=== PATIENT | male | born 1990 | race Caucasian/White ===

== ENCOUNTER 2018-01-06 09:33 | Emergency (ER) | payer MEDICAID ==
[~2018-01-06] VITALS: Ht 170.2 cm; Wt 68.0 kg
[~2018-01-06 09:33] MED LIST: AZIT250T PO; BACL20TA84 PO; HAL5T PO; LITH300C43 PO; LURA60TA PO; QUET-1 PO; QUET25TA PO
[2018-01-06 09:50] VITALS: BP 125/77
[2018-01-06] MEDS ORDERED: ondansetron 4mg rapidly disintigrating tab PO ONE (11:00)
[2018-01-06] MEDS ORDERED: DOXYCYCLINE 100MG CAPSULE PO STA (11:00)
[2018-01-06] MEDS ORDERED: cephalexin 250mg capsule PO ONE (11:00)
[2018-01-06] MEDS ORDERED: normal saline 1000ML IV soln IV ONE (11:00)
[2018-01-06 11:33] LABS: BASOPHILS % (AUTO) 0.2 % (0-1); EOSINOPHILS # (AUTO) 0.1 X10'3 (0-0.9); EOSINOPHILS % (AUTO) 1.1 % (0-6); HEMATOCRIT 43.1 % (42.0-52.0); HEMOGLOBIN 14.6 g/dl (14.0-17.9); LYMPHOCYTES # (AUTO) 0.9 X10'3 (1.1-4.8); MEAN CORPUSCULAR HEMOGLOBIN 30.7 PG (27.0-31.0); MEAN CORPUSCULAR HGB CONC 33.8 % (33.0-36.5); MEAN CORPUSCULAR VOLUME 90.6 FL (78-98); MEAN PLATELET VOLUME 8.2 FL (7.4-10.4); MONOCYTES # (AUTO) 1.1 X10'3 (0-0.9); MONOCYTES % (AUTO) 8.6 % (2-12); NEUTROPHILS # (AUTO) 10.7 X10'3 (1.8-7.7); NEUTROPHILS % (AUTO) 83.1 % (42-75); PLATELET COUNT 268 X10'3 (140-440); RED BLOOD COUNT 4.76 X10'6 (4.70-6.10); RED CELL DISTRIBUTION WIDTH 12.6 % (11.5-14.5); WHITE BLOOD COUNT 12.9 X10'3 (4.5-11.0)
[2018-01-06 11:51] LABS: ALANINE AMINOTRANSFERASE 53 U/L (12-78); ALBUMIN 3.2 G/DL (3.4-5.0); ALBUMIN/GLOBULIN RATIO 0.7 (1.1-1.5); ALKALINE PHOSPHATASE 156 IU/L (46-116); ANION GAP 11 (8-16); ASPARTATE AMINO TRANSFERASE 49 U/L (10-37); BILIRUBIN,TOTAL 0.8 MG/DL (0.1-1.0); BLOOD UREA NITROGEN 18 MG/DL (7-18); BUN/CREATININE RATIO 22.8 (5.4-32.0); CALCIUM 9.9 MG/DL (8.5-10.1); CHLORIDE 92 MMOL/L (99-107); CREATININE 0.79 MG/DL (0.60-1.10); GLUCOSE 100 MG/DL (70-104); MAGNESIUM 2.5 MG/DL (1.5-2.4); POTASSIUM 3.3 MMOL/L (3.5-5.1); SODIUM 131 MMOL/L (135-145); TOTAL CARBON DIOXIDE 28.3 MMOL/L (24-32); eGFR > 90 ML/MIN
[2018-01-06 11:53] LABS: PARTIAL THROMBOPLASTIN TIME 37 SECONDS (22-32); PROTHROMBIN TIME 10.3 SECONDS (9.0-12.0)
[2018-01-06 11:59] LABS: PLATELET ESTIMATE NORMAL; TOTAL CELLS COUNTED 100
[2018-01-06] MEDS ORDERED: TETanus/Pertussis (Acell)/Diphther VAC/PF (Tdap-Adult) 0.5ml syringe IM ONE (12:25)
[2018-01-06] MEDS ORDERED: CEPH250T PO (13:07)
[2018-01-06] MEDS ORDERED: DOXY100C43 PO (13:07)
== END 2018-01-06 14:00 | disposition home or self-care (01) ==
LOC: ER 09:34
DX: L02.416 Cutaneous abscess of left lower limb (principal); L03.116 Cellulitis of left lower limb; J45.909 Unspecified asthma, uncomplicated; F12.90 Cannabis use, unspecified, uncomplicated; F15.90 Other stimulant use, unspecified, uncomplicated; Z86.69 Personal history of other diseases of the nervous system and sense organs; Z98.890 Other specified postprocedural states; Z88.0 Allergy status to penicillin; Z88.1 Allergy status to other antibiotic agents; Z91.048 Other nonmedicinal substance allergy status; Z79.2 Long term (current) use of antibiotics; Z79.899 Other long term (current) drug therapy
CPT/HCPCS: 10061; 36415; 71045; 80053; 83605; 83735; 84145; 85025; 85610; 85730; 87040; 90471; 90715; 93005; 99284; J7030

== ENCOUNTER 2018-03-12 09:12 | Inpatient (IN) | payer MEDICAID | END 2018-03-17 14:52 | LOC: ER 09:12 → ED HOLD 09:46 → SUR 3N 03-16 19:21 → ICU 2S 11:14 ==

== ENCOUNTER 2019-08-13 00:49 | Emergency (ER) | payer MEDICAID, OTHER ==
[~2019-08-13] VITALS: Ht 170.2 cm; Wt 62.0 kg
[~2019-08-13 00:49] MED LIST changes: -AZIT250T PO; -BACL20TA84 PO; +DIAZ5TAB PO; +DIVA500T4 PO; -HAL5T PO; -LITH300C43 PO; -LURA60TA PO; -QUET-1 PO; +QUET200T PO; -QUET25TA PO; +QUET300T2 PO
[2019-08-13 02:08] LABS: BASOPHILS # (AUTO) 0.1 X10'3 (0-0.2); BASOPHILS % (AUTO) 0.9 % (0-1); EOSINOPHILS # (AUTO) 0.2 X10'3 (0-0.9); EOSINOPHILS % (AUTO) 2.4 % (0-6); HEMATOCRIT 44.6 % (42.0-52.0); HEMOGLOBIN 15.2 g/dl (14.0-17.9); LYMPHOCYTES # (AUTO) 1.9 X10'3 (1.1-4.8); LYMPHOCYTES % (AUTO) 27.7 % (21-51); MEAN CORPUSCULAR HEMOGLOBIN 30.6 PG (27.0-31.0); MEAN CORPUSCULAR HGB CONC 34.1 g/dL (33.0-36.5); MEAN CORPUSCULAR VOLUME 89.5 FL (78-98); MEAN PLATELET VOLUME 8.8 FL (7.4-10.4); MONOCYTES # (AUTO) 0.5 X10'3 (0-0.9); MONOCYTES % (AUTO) 7.7 % (2-12); NEUTROPHILS # (AUTO) 4.2 X10'3 (1.8-7.7); NEUTROPHILS % (AUTO) 61.3 % (42-75); PLATELET COUNT 218 X10'3 (140-440); RED BLOOD COUNT 4.98 X10'6 (4.70-6.10); RED CELL DISTRIBUTION WIDTH 13.1 % (11.5-14.5); WHITE BLOOD COUNT 6.9 X10'3 (4.5-11.0)
[2019-08-13 02:20] LABS: ALANINE AMINOTRANSFERASE 22 U/L (12-78); ALBUMIN 4.1 G/DL (3.4-5.0); ALBUMIN/GLOBULIN RATIO 1.4 (1.1-1.5); ALKALINE PHOSPHATASE 77 IU/L (46-116); ANION GAP 10 (8-16); ASPARTATE AMINO TRANSFERASE 19 U/L (10-37); BILIRUBIN,TOTAL 0.8 MG/DL (0.1-1.0); BLOOD UREA NITROGEN 22 MG/DL (7-18); BUN/CREATININE RATIO 22.7 (5.4-32.0); CALCIUM 8.8 MG/DL (8.5-10.1); CHLORIDE 109 MMOL/L (99-107); CREATININE 0.97 MG/DL (0.60-1.10); GLUCOSE 91 MG/DL (70-104); POTASSIUM 3.7 MMOL/L (3.5-5.1); SODIUM 144 MMOL/L (135-145); TOTAL CARBON DIOXIDE 25.2 MMOL/L (24-32); TOTAL PROTEIN 7.1 G/DL (6.4-8.2); eGFR > 90 ML/MIN
[2019-08-13 02:22] LABS: ETHANOL < 0.010 GM/DL (0.0-0.010)
--- NOTE | 2019-08-13 08:00 | NUR ---
Pt sleepin on R side. RR equal and nonlabored.
--- NOTE | 2019-08-13 09:00 | NUR ---
Pt sleepin on L side. RR equal and nonlabored.
--- NOTE | 2019-08-13 10:10 | NUR ---
Pt ambulated to bathroom with steady gait. UA obtained.
[2019-08-13 10:24] LABS: URINE AMPHETAMINE SCREEN NEGATIVE (Neg); URINE BARBITUATE SCREEN NEGATIVE (Neg); URINE BENZODIAZEPINES SCREEN NEGATIVE (Neg); URINE CANNABINOID SCREEN POSITIVE (Neg); URINE COCAINE SCREEN NEGATIVE (Neg); URINE METHADONE SCREEN NEGATIVE (Neg); URINE OPIATE SCREEN NEGATIVE (Neg); URINE PHENCYCLIDINE SCREEN NEGATIVE (Neg)
--- NOTE | 2019-08-13 13:40 | NUR ---
PT RESTING IN BED. NO S/S OF DISTRESS OR PAIN. WILL CONTINUE TO MONITOR. RR OF 16
--- NOTE | 2019-08-13 14:42 | NUR ---
PACKET FAXED TO [facility]
[2019-08-13 14:57] LABS: CLARITY,URINE SLIGHTLY CLOUDY (Clear); COLOR,URINE YELLOW (Yellow); GLUCOSE, URINE NEGATIVE (Neg); KETONES,URINE NEGATIVE (Neg); LEUKOCYTE ESTERASE ,URINE NEGATIVE (Neg); NITRITES, URINE NEGATIVE (Neg); OCCULT BLOOD,URINE NEGATIVE (Neg); PROTEIN,URINE TRACE mg/dl (Neg)
[2019-08-13 14:59] LABS: UA COLLECTION TYPE VOIDED
[2019-08-13 15:03] LABS: AMORPHOUS URATES 1+; BACTERIA,URINE NONE SEEN /HPF (Neg); MUCUS STRANDS MANY /LPF (Neg); RBC,URINE NONE SEEN /HPF (0-2); SPERM FEW /HPF (NEGATIVE); SQUAMOUS EPITHELIAL CELL,UR NONE SEEN /LPF (FEW); WBC,URINE 0-4 /HPF (0-4)
--- NOTE | 2019-08-13 18:15 | NUR ---
TC FROM [facility], STAFF FROM [facility] FOR INTAKE INFORMATION. THEY WILL CALL BACK IF PATIENT IS ACCEPTED TO THEIR PROGRAM.
[2019-08-13] MEDS ORDERED: VAL5T PO (18:45)
[2019-08-13] MEDS ORDERED: DIVA500T9 PO ×2 (18:46→18:47)
[2019-08-13] MEDS ORDERED: QUET-1 PO (18:47)
[2019-08-13] MEDS ORDERED: QUET200T PO (18:50)
--- NOTE | 2019-08-13 19:00 | NUR ---
Pt eating dinner
--- NOTE | 2019-08-13 20:00 | NUR ---
Pt sitting in bed quietly.
[2019-08-13] MEDS: diazepam 5mg tablet PO PRN (20:17)
[2019-08-13] MEDS ORDERED: quetiapine 100mg tablet PO SCH (21:00)
[2019-08-13] MEDS ORDERED: divalproex sod 250mg ER (24-hour) tablet PO SCH (21:00)
[2019-08-13] MEDS ORDERED: traZODone 50mg tablet PO SCH (21:00)
--- NOTE | 2019-08-13 21:00 | NUR ---
Pt resting quietly, respirations normal, no s/s of distress.
--- NOTE | 2019-08-13 22:00 | NUR ---
Pt resting quietly, respirations normal, no s/s of distress.
--- NOTE | 2019-08-13 23:00 | NUR ---
Pt resting quietly, respirations normal, no s/s of distress.
--- NOTE | 2019-08-13 23:45 | NUR ---
Pt resting quietly, respirations normal, no s/s of distress.
--- NOTE | 2019-08-14 01:00 | NUR ---
Pt resting quietly, respirations normal, no s/s of distress.
--- NOTE | 2019-08-14 02:00 | NUR ---
Pt resting quietly, respirations normal, no s/s of distress.
--- NOTE | 2019-08-14 03:00 | NUR ---
Pt up to bathroom.
--- NOTE | 2019-08-14 04:07 | NUR ---
Pt resting quietly, respirations normal, no s/s of distress.
--- NOTE | 2019-08-14 06:32 | NUR ---
Patient sleeping on right side. No distress observed. Continue to monitor.
[2019-08-14] MEDS ORDERED: quetiapine 100mg tablet PO SCH (08:00)
[2019-08-14] MEDS ORDERED: divalproex sod 250mg ER (24-hour) tablet PO SCH (08:00)
[2019-08-14] MEDS ORDERED: QUETIAPINE FUMARATE 200 MG PO SCH (08:00)
[2019-08-14] MEDS: diazepam 5mg tablet PO PRN ×2 (08:44→18:00)
--- NOTE | 2019-08-14 09:11 | NUR ---
Patient sleeping at this time. RN 1:1 earlier. Patient states he is still feeling suicidal with a plan to overdose or cut his wrists. Patient going to [facility] today. Patient states he is homeless but has been trying to contact [employer] to get back his benefits to help him with housing. No avail at the present time due to Covid. Continue to monitor.
--- NOTE | 2019-08-14 09:19 | NUR ---
ASSUMED CARE WHILE RN IS ON 15 MIN BREAK PT. HAS NO NEEDS AT THIS TIME
--- NOTE | 2019-08-14 10:31 | NUR ---
Patient sleeping on right side. No distress observed. Continue to monitor.
--- NOTE | 2019-08-14 12:05 | NUR ---
Patient reclining in bed with his eyes closed. No distress observed. Continue to monitor.
--- NOTE | 2019-08-14 13:16 | NUR ---
Patient sitting up and eating. No distress observed. Continue to monitor.
--- NOTE | 2019-08-14 14:50 | NUR ---
Patient reclining. No distress observed. Continue to monitor.
--- NOTE | 2019-08-14 16:52 | NUR ---
Patient speaking loudly on the phone to a female. Staff had to keep reminding him to keep his voice down. Patient got off the phone. No distress at this time. Continue to monitor.
[2019-08-14 20:03] VITALS: BP 115/52
== END 2019-08-14 20:07 ==
LOC: ER 00:49
DX: R45.851 Suicidal ideations (principal); J45.909 Unspecified asthma, uncomplicated; F31.9 Bipolar disorder, unspecified; F20.9 Schizophrenia, unspecified; F17.200 Nicotine dependence, unspecified, uncomplicated; Z98.890 Other specified postprocedural states; Z86.69 Personal history of other diseases of the nervous system and sense organs; Z88.0 Allergy status to penicillin; Z88.2 Allergy status to sulfonamides; Z79.899 Other long term (current) drug therapy
CPT/HCPCS: 36415; 80053; 80305; 80320; 81001; 84443; 85025; 99285

== ENCOUNTER 2019-08-14 16:20 | Inpatient (IN) | payer MEDICAID, OTHER ==
[~2019-08-14] VITALS: Ht 170.2 cm; Wt 61.0 kg
[~2019-08-14 16:20] MED LIST changes: -DIAZ5TAB PO; -DIVA500T4 PO; +DIVA500T9 PO; +QUET-1 PO; -QUET300T2 PO; +VAL5T PO
[2019-08-14] MEDS ORDERED: acetaminophen 325mg tablet PO PRN ×4 (20:25→20:50)
[2019-08-14] MEDS ORDERED: magnesium hydroxide 30ml (MOM) UD suspension PO PRN ×2 (20:30→20:50)
[2019-08-14] MEDS ORDERED: mag hydrox/Alum hydrox/simeth 30ml oral suspension PO PRN (20:30)
[2019-08-14] MEDS ORDERED: loperamide 2mg capsule PO PRN (20:50)
[2019-08-14] MEDS ORDERED: quetiapine 100mg tablet PO PRN (20:50)
[2019-08-14] MEDS: quetiapine 100mg tablet PO SCH (21:00)
[2019-08-14] MEDS: divalproex sod 250mg ER (24-hour) tablet PO SCH (21:00)
[2019-08-14] MEDS: LORazepam 1 MG tablet PO PRN (21:39)
[2019-08-14 22:29] VITALS: BP 123/91
--- NOTE | 2019-08-14 22:31 | NUR ---
Pt admitted to [facility] from the ED on a 5150 for dts. Pt self presented to ED with suicidal ideation with a plan to cut his wrists. Pt has hx of suicide attempt by overdose. Pt is cooperative and friendly for assessment, denies any complaints. Pt was scanned for contraband and was allowed to shower before having a snack and going to bed. Pt denies being suicidal at this time.
[2019-08-15] MEDS: divalproex sod 250mg ER (24-hour) tablet PO SCH ×2 (07:53→20:26)
[2019-08-15] MEDS: quetiapine 100mg tablet PO SCH ×2 (07:53→20:27)
[2019-08-15] MEDS: nicotine 21mg patch - 24 hr TD SCH (07:56)
[2019-08-15 08:00] VITALS: BP 117/72
[2019-08-15 09:58] LABS: CHOLESTEROL 115 MG/DL (0-200); LDL CHOLESTEROL 53 MG/DL (50-100); TRIGLYCERIDES 96 MG/DL (20-135)
[2019-08-15] MEDS: LORazepam 1 MG tablet PO PRN ×2 (10:13→19:48)
[2019-08-15] MEDS: NICOTINE POLACRILEX 2 MG LOZENGE BC PRN ×4 (10:13→18:47)
[2019-08-15 10:27] LABS: CHOL/HDL RATIO 2.4 (0.00-4.99); HDL CHOLESTEROL 48 MG/DL (35-60)
[2019-08-15 10:34] LABS: HEMOGLOBIN A1C 5.3 % (4.5-6.2)
[2019-08-15] MEDS: mag hydrox/Alum hydrox/simeth 30ml oral suspension PO PRN ×2 (10:36→17:11)
--- NOTE | 2019-08-15 15:55 | NUR ---
Nursing Progress Note: Legal hold: 5150 Client on involuntary status for DTS Report received from RN with use of SBAR Why are they here: Pt admitted to [facility] from the ED on a 5150 for DTS. Pt self-presented to ED with suicidal ideation with a plan to cut his wrists. Pt has hx. of suicide attempt by overdose. Pt is cooperative and friendly for assessment, denies any complaints. Assessment What has happened this shift: Received Pt in bed sleeping w/o distress at beginning of shift. Pt awoke and was cooperative with vitals and ate with others in community room. Pt took AM meds w/o issue and explained that he put himself on a 5150 just to get meds that he needs. 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 He traveled back to [place] and [facility] lost his luggage and his ID, so he needed meds and claimed to be suicidal. He has been cooperative and pleasant. He denies current SI and reports taking Seroquel, Depakote and Valium (as a muscle relaxer). Pt originally accepted the nicotine patch, then took it off in favor of the Nicotine Lozenges. Pt napped in afternoon. He reports working with his sister to get an apartment in [place]. S/I, H/I: Denies A/VH: Denies Sleep: Napped ADL's: Independent Group attendance: NA Were meds taken: Yes Any med S/E: Pt. denies Mental Status Exam Appearance: Slightly disheveled in green scrubs Eye contact: Good Behavior: Cooperative, calm Speech: Clear and coherent Mood: Anxious Affect: Flat Thought process: Linear Thought Content: Seeing Dr. and getting meds straightened out Cognition: A&Ox4 Insight: Fair Judgment: Fair Interventions PRN's used: Ativan, Maalox, Nicotine Tapan. Therapeutic interventions: 1:1 assessment, medication administration/monitoring, active listening, therapeutic conversation with positive feedback, orientation to unit, maintained a safe and therapeutic environment, Q15 min safety checks. Restraints/seclusion/emergency medication: None Justification of Continued Inpatient Treatment: Patient requires medication adjustment to stabilize current crisis in a safe and therapeutic environment.
[2019-08-15 20:00] VITALS: BP 114/77
[2019-08-15] MEDS: traZODone 50mg tablet PO PRN (20:26)
--- NOTE | 2019-08-16 01:10 | NUR ---
Nursing Progress Note: Legal hold: 5150 Client on involuntary status for DTS Report received from JUNIOR Wilkes with use of SBAR Why are they here: Pt admitted to [facility] from the ED on a 5150 for DTS. Pt self-presented to ED with suicidal ideation with a plan to cut his wrists. Pt has hx. of suicide attempt by overdose. Pt is cooperative and friendly for assessment, denies any complaints. Assessment What has happened this shift: Patient is awake and well oriented. Patient seen socializing with others and walking hallways. Patient tells this global technical writer that he is looking forward to discharge, patient states he hopes to live with his sister who [place] a [place]. Patient states his father lives in [place] but they are estranged. Patient denies S/I or H/I at this time. Patient is quiet spoken and polite. Patient complained of mild anxiety after not being able to reach his sister by telephone. S/I, H/I: Denies. A/VH: Denies. Sleep: Sleeping, will tally hours in am. ADL's: Independent. Group attendance: No group on nights. Were meds taken: Yes, patient is medication compliant. Any med S/E: Pt. denies. Mental Status Exam Appearance: Slightly disheveled in green scrubs. Eye contact: Good. Behavior: Cooperative, friendly. Speech: Quiet. Mood: Good. Affect: Flat. Thought process: Linear. Thought Content: Focused on mental health, taking his medications. Cognition: A&Ox4. Insight: Fair. Judgment: Fair. Interventions PRN's used: Ativan. Therapeutic interventions: 1:1 assessment, medication administration/monitoring, active listening, therapeutic conversation with positive feedback, orientation to unit, maintained a safe and therapeutic environment, Q15 min safety checks. Restraints/seclusion/emergency medication: None Justification of Continued Inpatient Treatment: Patient requires medication adjustment to stabilize current crisis in a safe and therapeutic environment.
[2019-08-16] MEDS: LORazepam 1 MG tablet PO PRN ×3 (05:27→22:05)
[2019-08-16] MEDS: divalproex sod 250mg ER (24-hour) tablet PO SCH ×2 (07:38→20:20)
[2019-08-16] MEDS: quetiapine 100mg tablet PO SCH ×2 (07:39→20:21)
[2019-08-16] MEDS: nicotine 21mg patch - 24 hr TD SCH (07:39)
[2019-08-16] MEDS: NICOTINE POLACRILEX 2 MG LOZENGE BC PRN ×5 (07:39→20:49)
[2019-08-16 08:00] VITALS: BP 113/72
--- NOTE | 2019-08-16 17:33 | NUR ---
Nursing Progress Note: Legal hold: 5150 Client on involuntary status for DTS Report received from RN with use of SBAR Why are they here: Pt admitted to [facility] from the ED on a 5150 for DTS. Pt self-presented to ED with suicidal ideation with a plan to cut his wrists. Pt has hx. of suicide attempt by overdose. Pt is cooperative and friendly for assessment, denies any complaints. Assessment What has happened this shift: Received Pt in bed sleeping w/o distress at beginning of shift. Pt awoke and was cooperative with vitals and ate with others in community room. Pt took AM meds w/o issue and took a shower. Pt used both Nicotine patch and lozenges today. Pt used Ativan prn today for anxiety and it was helpful. He continues to advocate for getting valium as a muscle relaxant and wants to talk with a DrManny about it. He reports he doesn't abuse it. Pt denies SI and is pleasant and cooperative and engages freely with staff and other pt's. He wanted to discharge today, but was agreeable to stay another day and discuss it tomorrow. Pt shaved his face and felt good about his new clean look. S/I, H/I: Denies A/VH: Denies Sleep: Napped ADL's: Independent Group attendance: NA Were meds taken: Yes Any med S/E: Pt. denies Mental Status Exam Appearance: Groomed in green scrubs Eye contact: Good Behavior: Cooperative, calm Speech: Clear and coherent Mood: Anxious Affect: Flat Thought process: Linear Thought Content: Seeing Dr. and getting meds straightened out; discharge Cognition: A&Ox4 Insight: Fair Judgment: Fair Interventions PRN's used: Ativan, Nicotine Tapan. Therapeutic interventions: 1:1 assessment, medication administration/monitoring, active listening, therapeutic conversation with positive feedback, orientation to unit, maintained a safe and therapeutic environment, Q15 min safety checks. Restraints/seclusion/emergency medication: None Justification of Continued Inpatient Treatment: Patient requires medication adjustment to stabilize current crisis in a safe and therapeutic environment.
[2019-08-16 20:00] VITALS: BP 121/74
[2019-08-16] MEDS: traZODone 50mg tablet PO PRN (20:21)
[2019-08-16 20:46] VITALS: BP 121/74
--- NOTE | 2019-08-17 01:37 | NUR ---
Nursing Progress Note: Legal hold: 5150 Client on involuntary status for DTS Report received from Katrin PACHECO with use of SBAR Why are they here: Pt admitted to [facility] from the ED on a 5150 for DTS. Pt self-presented to ED with suicidal ideation with a plan to cut his wrists. Pt has hx. of suicide attempt by overdose. Pt is cooperative and friendly for assessment, denies any complaints. Assessment What has happened this shift: Pt was up and in and out of his room. He asked for a nicotine lozenge and Tylenol. Pt reports anxiety and has had the hiccups for over a day. He denies having SI and H/I and dose not appear to be responding to internal stimuli. S/I, H/I: Denies A/VH: Denies Sleep: Napped ADL's: Independent Group attendance: NA Were meds taken: Yes Any med S/E: Pt. denies Mental Status Exam Appearance: Groomed in green scrubs Eye contact: Good Behavior: Cooperative, calm Speech: Clear and coherent Mood: Anxious Affect: Flat Thought process: Linear Thought Content: Seeing DrManny and getting meds straightened out; discharge Cognition: A&Ox4 Insight: Fair Judgment: Fair Interventions PRN's used: Ativan, Nicotine Tapan. Therapeutic interventions: 1:1 assessment, medication administration/monitoring, active listening, therapeutic conversation with positive feedback, orientation to unit, maintained a safe and therapeutic environment, Q15 min safety checks. Restraints/seclusion/emergency medication: None Justification of Continued Inpatient Treatment: Patient requires medication adjustment to stabilize current crisis in a safe and therapeutic environment.
[2019-08-17] MEDS: NICOTINE POLACRILEX 2 MG LOZENGE BC PRN ×4 (04:14→11:57)
[2019-08-17] MEDS: LORazepam 1 MG tablet PO PRN (07:38)
[2019-08-17] MEDS: quetiapine 100mg tablet PO SCH (07:38)
[2019-08-17] MEDS: divalproex sod 250mg ER (24-hour) tablet PO SCH (07:38)
[2019-08-17] MEDS: nicotine 21mg patch - 24 hr TD SCH (07:40)
[2019-08-17 07:46] VITALS: BP 117/82
--- NOTE | 2019-08-17 07:56 | NUR ---
PSYCHOSOCIAL ASSESSMENT Fernando Dumont" is a 29 y/o single male who was placed on 5150 for danger to self. He rpesetend to the ED with suicidal ideation with a plan to cut his wrist. He has a history of Bipolar and has been hospitalized 3 times at [facility] and once at both [facility] and [facility]. He recently (August 06) moved back to [place] from [place] and was staying at the [facility]. 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 He reported he does not intend to return to [place]. He currently does not have insurance due to moving and has signed up for emergency Medi-[facility] in the ED. He receives SSDI. He admitted to continuity writer that he came to the ED and said he was suicidal, "I just said that to get my meds". He was apologetic and stated, "I'm sure someone else needs this bed more than I do". He reported he ran out of his medications after moving and had no way of getting them refilled. He denied any current SI or HI. He did have a serious suicide attempt in Feb 2018 via overdose on medications, he ended up in ICU intubated. Fernando reported he would like to return to [facility] for his follow up care as he had been there in the past. He is planning on living with his sister and mom upon discharge. and Fernando attempted to call his sister, [place] ([phone] and [phone]) and there was no answer. later called and left a message requesting a call back. JUDAH Li Addendum: 08/17/19 at 0758 by Rosa LEE Amended: Links added.
[2019-08-17] MEDS ORDERED: DIVA500T9 PO (10:04)
[2019-08-17] MEDS ORDERED: QUET200T PO (10:04)
[2019-08-17] MEDS ORDERED: DIVA250T8 PO (10:04)
[2019-08-17] MEDS ORDERED: QUET100T33 PO (10:04)
--- NOTE | 2019-08-17 11:05 | NUR ---
Nursing Progress Note: Legal hold: 5150 Client on involuntary status for DTS Report received from Ayala PACHECO with use of SBAR Why are they here: Pt admitted to [facility] from the ED on a 5150 for DTS. Pt self-presented to ED with suicidal ideation with a plan to cut his wrists. Pt has hx. of suicide attempt by overdose. Pt is cooperative and friendly for assessment, denies any complaints. Assessment What has happened this shift: Pt was up and in and out of his room. Walking halls frequently. He asked for a Nicotine lozenge and Ativan. Pt reported anxiety mid morning, encouraged him to eat the am snack for distraction. Pt was agreeable and admitted he was anxious due to his pending discharge today. Made him aware that this RN will administer his next dose of Ativan as soon as its available to be given. He denies having SI and H/I and dose not appear to be responding to internal stimuli. S/I, H/I: Denies A/VH: Denies Sleep: Napped today ADL's: Independent Group attendance: NA Were meds taken: Yes Any med S/E: Pt. denies Mental Status Exam Appearance: Groomed civilian clothing, disheveled hair Eye contact: Good Behavior: Cooperative, calm Speech: Clear and coherent Mood: Anxious Affect: Flat Thought process: Linear Thought Content: Anxious r/t pending discharge today Cognition: A&Ox4 Insight: Fair Judgment: Fair Interventions PRN's used: Ativan, Nicotine Lozenges Therapeutic interventions: 1:1 assessment, medication administration/monitoring, active listening, therapeutic conversation with positive feedback, orientation to unit, maintained a safe and therapeutic environment, Q15 min safety checks. Restraints/seclusion/emergency medication: None Justification of Continued Inpatient Treatment: Patient requires medication adjustment to stabilize current crisis in a safe and therapeutic environment
--- NOTE | 2019-08-17 12:22 | NUR ---
Discussed discharge instructions & education including coping skills and with patient, verbalizes understanding. Signed discharge paperwork. Coping skills discussed. Resources provided as well as discussed follow up appointment on 08/25. Scripts given to fill. Discharged to street, [facility]. States he'll fill his scripts there and get some lunch there. Belongings returned to [facility], Discharged at this time, denies S.I./MARLENE thoughts. Escorted out via nursing aid without event.
== END 2019-08-17 12:23 | disposition home or self-care (01) | DRG 753 ==
LOC: ADULT MH 20:22
PROVIDERS: ADMIT Psychiatry & Neurology Psychiatry; ATTEND Psychiatry & Neurology Psychiatry
DX: F31.9 Bipolar disorder, unspecified (principal); R45.851 Suicidal ideations; F41.9 Anxiety disorder, unspecified; G80.9 Cerebral palsy, unspecified; Z59.0 Homelessness; Z65.3 Problems related to other legal circumstances; Z72.0 Tobacco use; Z81.8 Family history of other mental and behavioral disorders; Z86.73 Personal history of transient ischemic attack (TIA), and cerebral infarction without residual deficits; Z88.0 Allergy status to penicillin; Z56.0 Unemployment, unspecified; Z88.2 Allergy status to sulfonamides; Z88.8 Allergy status to other drugs, medicaments and biological substances; Z79.891 Long term (current) use of opiate analgesic; Z79.899 Other long term (current) drug therapy; Z71.6 Tobacco abuse counseling
CPT/HCPCS: 36415; 80061; 83036; 87081

== ENCOUNTER 2019-10-02 17:08 | Emergency (ER) | payer MEDICAID ==
[~2019-10-02] VITALS: Ht 167.6 cm; Wt 62.3 kg
[~2019-10-02 17:08] MED LIST changes: +DIVA250T8 PO; -QUET-1 PO; +QUET100T33 PO; -VAL5T PO
[2019-10-02 18:48] LABS: BASOPHILS % (AUTO) 0.4 % (0-1); EOSINOPHILS % (AUTO) 0.3 % (0-6); HEMATOCRIT 44.6 % (42.0-52.0); HEMOGLOBIN 15.3 g/dl (14.0-17.9); LYMPHOCYTES # (AUTO) 1.3 X10'3 (1.1-4.8); LYMPHOCYTES % (AUTO) 14.3 % (21-51); MEAN CORPUSCULAR HGB CONC 34.3 g/dL (33.0-36.5); MEAN CORPUSCULAR VOLUME 90.3 FL (78-98); MEAN PLATELET VOLUME 8.9 FL (7.4-10.4); MONOCYTES # (AUTO) 0.6 X10'3 (0-0.9); MONOCYTES % (AUTO) 6.2 % (2-12); NEUTROPHILS # (AUTO) 7.1 X10'3 (1.8-7.7); NEUTROPHILS % (AUTO) 78.8 % (42-75); PLATELET COUNT 244 X10'3 (140-440); RED BLOOD COUNT 4.94 X10'6 (4.70-6.10); RED CELL DISTRIBUTION WIDTH 13.4 % (11.5-14.5); WHITE BLOOD COUNT 9.1 X10'3 (4.5-11.0)
--- NOTE | 2019-10-02 19:30 | NUR ---
Pt is cooperative, provided urine sample for UA. Pt given sandwhich and crackers per Pt request.
[2019-10-02 19:59] LABS: URINE AMPHETAMINE SCREEN POSITIVE (Neg); URINE BARBITUATE SCREEN NEGATIVE (Neg); URINE BENZODIAZEPINES SCREEN NEGATIVE (Neg); URINE CANNABINOID SCREEN POSITIVE (Neg); URINE COCAINE SCREEN NEGATIVE (Neg); URINE METHADONE SCREEN NEGATIVE (Neg); URINE OPIATE SCREEN NEGATIVE (Neg); URINE PHENCYCLIDINE SCREEN NEGATIVE (Neg)
[2019-10-02 20:03] LABS: ALANINE AMINOTRANSFERASE 24 U/L (12-78); ALBUMIN/GLOBULIN RATIO 1.1 (1.1-1.5); ALKALINE PHOSPHATASE 92 IU/L (46-116); ANION GAP 8 (8-16); ASPARTATE AMINO TRANSFERASE 20 U/L (10-37); BILIRUBIN,TOTAL 0.7 MG/DL (0.1-1.0); BLOOD UREA NITROGEN 25 MG/DL (7-18); CHLORIDE 99 MMOL/L (99-107); GLUCOSE 106 MG/DL (70-104); SODIUM 136 MMOL/L (135-145); TOTAL CARBON DIOXIDE 29.2 MMOL/L (24-32); TOTAL PROTEIN 7.5 G/DL (6.4-8.2); eGFR 89 ML/MIN
[2019-10-02 20:06] LABS: ETHANOL < 0.010 GM/DL (0.0-0.010)
--- NOTE | 2019-10-02 20:28 | NUR ---
Pt appears to be resting comfortably. No episodes of aggressive behavior or threats to harm self or others.
[2019-10-02] MEDS ORDERED: DIVA250T15 PO (20:46)
[2019-10-02] MEDS ORDERED: QUET300T2 PO (20:46)
[2019-10-02] MEDS: quetiapine 100mg tablet PO SCH (21:50)
[2019-10-02] MEDS: divalproex sodium 250mg tablet PO SCH (21:50)
--- NOTE | 2019-10-02 22:00 | NUR ---
Spoke with JUNIOR Back from [facility]. Wong stated he was placing Pt on 5150 for danger to others because of statements Pt made during his interview. Pt continues to remain calm and cooperative and has been sleeping. Pt has made no statements of wanting to harm others, no displays of aggressive behaviors towards staff.
--- NOTE | 2019-10-02 23:30 | NUR ---
ASSUMED CARE OF PT. PT LAYING ON RIGHT SIDE, RESTING COMFORTABLY IN NO APPARENT DISTRESS, RR EVEN AND UNLABORED. WILL CONTINUE TO MONITOR
--- NOTE | 2019-10-03 00:30 | NUR ---
PT RESTING ON BACK, APPEARS TO BE SLEEPING. PT RR EVEN AND UNLABORED, WILL CONTINUE TO MONITOR
--- NOTE | 2019-10-03 00:45 | NUR ---
PT TO BATHROOM. RETURNED AND ASKED FOR FOOD, SANDWICH GIVEN UPON REQUEST
--- NOTE | 2019-10-03 01:30 | NUR ---
PT APPEARS TO BE ASLEEP ON BACK, IN NO APPARENT DISTRESS, RR EVEN AND UNLABORED. WILL CONTINUE TO MONITOR
--- NOTE | 2019-10-03 02:30 | NUR ---
PT LAYING ON RIGHT SIDE, IN NO APPARENT DISTRESS, RR EVEN AND UNLABORED. WILL CONTINUE TO MONITOR
--- NOTE | 2019-10-03 03:30 | NUR ---
PT LAYING ON RIGHT SIDE, RESTING COMFORTABLY IN NO APPARENT DISTRESS, RR EVEN AND UNLABORED. WILL CONTINUE TO MONITOR
--- NOTE | 2019-10-03 04:30 | NUR ---
PT SLEEPING ON BACK, NO DISTRESS, RR EVEN AND UNLABORED. WILL CONTINUE TO MONITOR
--- NOTE | 2019-10-03 05:35 | NUR ---
SPOKE WITH KANDICE JERNIGAN - CAN PLACE PT FRIDAY WHEN BEDS ARE AVAILABLE PENDING THS, UA, AND COVID TESTING. MD AWARE, ORDERS TO FOLLOW
--- NOTE | 2019-10-03 06:19 | NUR ---
PT AWAKE AND RESTING COMFORTABLY. ANSWERED QUESTIONS ABOUT BREAKFAST TIME.
--- NOTE | 2019-10-03 07:16 | NUR ---
PT. DISCHARGE ASSESSMENT CHARTED INCORRECTLY AND UNDON
[2019-10-03] MEDS: quetiapine 100mg tablet PO SCH ×2 (09:23→19:46)
[2019-10-03] MEDS: divalproex sodium 250mg tablet PO SCH ×2 (09:24→19:46)
--- NOTE | 2019-10-03 10:58 | NUR ---
Pt transferred from ed16 to of22 w/ staff escort.
--- NOTE | 2019-10-03 11:44 | NUR ---
pt resting quietly in bed, no s/s of distress at this time
--- NOTE | 2019-10-03 16:26 | NUR ---
urine sent to lab
[2019-10-03 16:32] LABS: CLARITY,URINE CLEAR (Clear); COLOR,URINE YELLOW (Yellow); GLUCOSE, URINE NEGATIVE (Neg); KETONES,URINE NEGATIVE (Neg); LEUKOCYTE ESTERASE ,URINE NEGATIVE (Neg); NITRITES, URINE NEGATIVE (Neg); OCCULT BLOOD,URINE NEGATIVE (Neg); PROTEIN,URINE NEGATIVE (Neg); UROBILINOGEN,URINE 0.2 E.U/dL (0.2-1.0)
[2019-10-03 16:33] LABS: UA COLLECTION TYPE CLN CATCH MIDSTREAM
--- NOTE | 2019-10-03 17:35 | NUR ---
Sherlyn from [facility] called for a nurse to nurse on pt. She stated that they have no beds available tonight but possibly tomorrow.
--- NOTE | 2019-10-03 19:32 | NUR ---
Patient's sister [place] was transfered back to [facility] asking if her brother was here and could she talk with him. I told her "I cannot give you any information, but please hold". At this point I walked over to [place] and told him his sister was on the phone and requesting to speak with him, "would you like to talk with her?" He said "sure" and I gave him the phone, he talked with her for quite awhile w/o problem. About 15min after he ended his call, he cld me to the bedside and asked me who told his sister he was here and accused me of violating HIPPA. I advised if he didn't want her to know he was here he shouldn't have accepted the phone call and no information would have been give. He went on a rant, would not let me talk, started cussing and demanding to talk with human resource because someone needed to be fired over this breach. Again we reassured him no info was given, his behavior escalted and he left the unit screaming and yelling a myself and JUNIOR Llanos. Security was called and we followed him to the lobby, he was not rational and would not listen to reason. Security excorted him back to [facility] and his bed. At that point he started screaming for his meds, to which I told him were due at 1999. Security asked him if his family knew he was here and that is how she knew to call [facility], he said it was possible. But always went back to the idea HIPPA was violated.
--- NOTE | 2019-10-03 19:49 | NUR ---
Patient apologized for his behavior and asked for something to help with his anxiety.
--- NOTE | 2019-10-03 23:50 | NUR ---
Received a call from [facility] who reported that they should be able to accept the patient on 10/04/19 as they have two discharges.
[2019-10-04 05:23] VITALS: BP 99/61
--- NOTE | 2019-10-04 06:30 | NUR ---
PT IS SLEEPING
--- NOTE | 2019-10-04 07:30 | NUR ---
PT IS SLEEPING
--- NOTE | 2019-10-04 08:00 | NUR ---
PT IS AWAKE AND EATING BREAKFAST
[2019-10-04] MEDS: quetiapine 100mg tablet PO SCH (08:10)
[2019-10-04] MEDS: divalproex sodium 250mg tablet PO SCH (08:10)
--- NOTE | 2019-10-04 09:00 | NUR ---
pt is resting
--- NOTE | 2019-10-04 10:03 | NUR ---
pt was transferred to [facility]
[2019-10-04] MEDS ORDERED: NO HOME MEDS (12:32)
== END 2019-10-04 10:07 ==
LOC: EEVIPCON 17:09 → ER 17:09
DX: R45.850 Homicidal ideations (principal); J45.909 Unspecified asthma, uncomplicated; F31.9 Bipolar disorder, unspecified; F20.9 Schizophrenia, unspecified; Z86.69 Personal history of other diseases of the nervous system and sense organs; Z98.890 Other specified postprocedural states; Z88.0 Allergy status to penicillin; Z88.2 Allergy status to sulfonamides; Z91.048 Other nonmedicinal substance allergy status; Z79.899 Other long term (current) drug therapy
CPT/HCPCS: 36415; 80053; 80305; 80320; 81003; 85025; 99285

== ENCOUNTER 2019-12-31 01:23 | Emergency (ER) | payer MEDICAID ==
[~2019-12-31] VITALS: Ht 172.7 cm; Wt 66.4 kg
[~2019-12-31 01:23] MED LIST changes: +CLE150C PO; -DIVA250T8 PO; -DIVA500T9 PO; +NICO-631 TD; +PALI156D IM; +PALI6TAB6 PO; -QUET100T33 PO; -QUET200T PO; +TRAZ-251 PO
[2019-12-31 01:28] VITALS: BP 99/64
--- NOTE | 2019-12-31 01:59 | NUR ---
reports he stopped depqakote and missed appointment at [facility] for refill. Visual hallucimnation. Snoted Methamphetamine 4 days ago
[2019-12-31] MEDS ORDERED: DIVA-81 PO ×2 (02:03→17:40)
[2019-12-31] MEDS ORDERED: QUET-1 PO ×2 (02:03→17:40)
[2019-12-31 02:23] LABS: BASOPHILS % (AUTO) 0.7 % (0-1); EOSINOPHILS # (AUTO) 0.1 X10'3 (0-0.9); EOSINOPHILS % (AUTO) 2.3 % (0-6); HEMOGLOBIN 15.4 g/dl (14.0-17.9); LYMPHOCYTES # (AUTO) 1.9 X10'3 (1.1-4.8); LYMPHOCYTES % (AUTO) 34.2 % (21-51); MEAN CORPUSCULAR HGB CONC 33.5 g/dL (33.0-36.5); MEAN CORPUSCULAR VOLUME 92.4 FL (78-98); MEAN PLATELET VOLUME 8.3 FL (7.4-10.4); MONOCYTES # (AUTO) 0.6 X10'3 (0-0.9); MONOCYTES % (AUTO) 10.2 % (2-12); NEUTROPHILS # (AUTO) 2.9 X10'3 (1.8-7.7); NEUTROPHILS % (AUTO) 52.6 % (42-75); PLATELET COUNT 240 X10'3 (140-440); RED BLOOD COUNT 4.97 X10'6 (4.70-6.10); RED CELL DISTRIBUTION WIDTH 14.1 % (11.5-14.5); WHITE BLOOD COUNT 5.6 X10'3 (4.5-11.0)
[2019-12-31 02:31] LABS: ALANINE AMINOTRANSFERASE 29 U/L (12-78); ALKALINE PHOSPHATASE 87 IU/L (46-116); ANION GAP 6 (8-16); ASPARTATE AMINO TRANSFERASE 25 U/L (10-37); CHLORIDE 106 MMOL/L (99-107); ETHANOL < 0.010 GM/DL (0.0-0.010); POTASSIUM 3.6 MMOL/L (3.5-5.1); SODIUM 142 MMOL/L (135-145); TOTAL CARBON DIOXIDE 29.8 MMOL/L (24-32); TOTAL PROTEIN 7.3 G/DL (6.4-8.2)
[2019-12-31 02:37] LABS: URINE AMPHETAMINE SCREEN POSITIVE (Neg); URINE BARBITUATE SCREEN NEGATIVE (Neg); URINE BENZODIAZEPINES SCREEN NEGATIVE (Neg); URINE CANNABINOID SCREEN POSITIVE (Neg); URINE COCAINE SCREEN NEGATIVE (Neg); URINE METHADONE SCREEN NEGATIVE (Neg); URINE OPIATE SCREEN NEGATIVE (Neg); URINE PHENCYCLIDINE SCREEN NEGATIVE (Neg)
[2019-12-31 02:38] LABS: ALBUMIN 4.1 G/DL (3.4-5.0); ALBUMIN/GLOBULIN RATIO 1.3 (1.1-1.5); BLOOD UREA NITROGEN 23 MG/DL (7-18); BUN/CREATININE RATIO 25.3 (5.4-32.0); CALCIUM 8.9 MG/DL (8.5-10.1); CREATININE 0.91 MG/DL (0.60-1.10); GLUCOSE 91 MG/DL (70-104); eGFR > 90 ML/MIN
--- NOTE | 2019-12-31 03:00 | NUR ---
rESTING NO SIGNS OF DISTRESS OR PAIN, FACIAL MUSCLES RELAXED
--- NOTE | 2019-12-31 04:00 | NUR ---
LEFT SIDE LYING NO APPARENT DISTRESS
--- NOTE | 2019-12-31 05:01 | NUR ---
SUPINE POSITION EYES ARE CLOSED, NO APPRAENT DISTRESS
--- NOTE | 2019-12-31 05:33 | NUR ---
jesi el faxed to [facility]
--- NOTE | 2019-12-31 05:53 | NUR ---
UNEVENTFUL NIGHT, NO COMPLAINTS.
--- NOTE | 2019-12-31 06:54 | NUR ---
storm bello doing one to one pt resting in bed .rr wnl.will cont to monitor.
--- NOTE | 2019-12-31 07:31 | NUR ---
recev[facility] call [facility] stated that they need updated facesheet for social security and insurance policy information also need medical cleareence statement from the provider.notified dr parra and eugenia woodard stated that she is going to take care of it.
--- NOTE | 2019-12-31 15:32 | NUR ---
[facility] CALLED AND PT HAS BEEN EXCEPTED TO [facility] AT [address] PEREZ. THEY WILL BE COMING TO GET HIM BETWEEN 1600 AND 1630.
== END 2019-12-31 16:54 | disposition home or self-care (01) ==
LOC: ER 01:23
DX: R45.851 Suicidal ideations (principal); J45.909 Unspecified asthma, uncomplicated; F31.9 Bipolar disorder, unspecified; F20.9 Schizophrenia, unspecified; F17.200 Nicotine dependence, unspecified, uncomplicated; F12.10 Cannabis abuse, uncomplicated; F15.10 Other stimulant abuse, uncomplicated; Z88.0 Allergy status to penicillin; Z88.2 Allergy status to sulfonamides; Z88.8 Allergy status to other drugs, medicaments and biological substances; Z79.899 Other long term (current) drug therapy
CPT/HCPCS: 36415; 80053; 80305; 80320; 82948; 85025; 99285

== ENCOUNTER 2019-12-31 15:55 | Inpatient (IN) | payer MEDICAID ==
[~2019-12-31] VITALS: Ht 167.6 cm; Wt 63.0 kg
[~2019-12-31 15:55] MED LIST changes: +DIVA-81 PO; +QUET-1 PO
[2019-12-31 16:37] VITALS: BP 90/60
[2019-12-31] MEDS ORDERED: acetaminophen 325mg tablet PO PRN ×2 (17:15)
[2019-12-31] MEDS ORDERED: magnesium hydroxide 30ml (MOM) UD suspension PO PRN (17:15)
[2019-12-31] MEDS ORDERED: traZODone 50mg tablet PO PRN (17:15)
[2019-12-31] MEDS ORDERED: DIVA-81 PO (17:40)
[2019-12-31] MEDS ORDERED: QUET-1 PO (17:40)
[2019-12-31] MEDS ORDERED: quetiapine 100mg tablet PO PRN (17:50)
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
[2019-12-31 19:00] VITALS: BP 104/70
[2019-12-31] MEDS: quetiapine 100mg tablet PO SCH (20:04)
[2019-12-31] MEDS: LORazepam 1 MG tablet PO PRN (20:04)
[2019-12-31] MEDS: divalproex sod 250mg ER (24-hour) tablet PO SCH (20:04)
--- NOTE | 2019-12-31 23:17 | NUR ---
Nursing Progress Note: Legal hold: 5150 Client on involuntary status for DTS Report received from nurseKartin with use of SBAR Why are they here: Presented self to the ED complaining of suicidal ideation. He reported that he had been feeling depressed recently but no event triggered this. He reported that he is not currently taking his medications. He reported that he ran out of his Depakote and Seroquel. He reports that his psychiatrist is at [facility] and he missed an appointment which caused him to run out. Endorses visual hallucinations. He notes that he last snorted methamphetamine 4 days ago. Denies any other medical concerns. Assessment What has happened this shift: Pt was sleeping in bed at change of shift, pt did not want to engage with this rn. Pt stated that he was anxious and tired and wanted to rest in his room. Pt awoke for a short time to have a snack and to ask for Ativan. Pt then went back to bed. Pt did not make any delusional statements nor did he have any behavior issues. S/I, H/I: denies A/VH: denies Sleep: see sleep hours ADL's: independent Group attendance: no evening groups Were meds taken: yes Any med S/E: none noted Mental Status Exam Appearance: disheveled, messy hair Eye contact: fair Behavior: sleeping Speech: normal rate and rhythm Mood: tired, anxious Affect: flat Thought process: linear Thought Content: sleep Cognition: a/o x4 Insight: fair Judgment: poor Interventions PRN's used: ativan Therapeutic interventions: Introduced self and established rapport, maintained a safe and supportive environment, ensured contract for safety, provided active listening and positive encouragement, encouraged participation on the unit, and maintained Q 15min safety checks. Restraints/seclusion/emergency medication: None Justification of Continued Inpatient Treatment: Pt. requires interruption of current crisis, medication adjustments, and a safe and supportive environment.
[2020-01-01 07:21] LABS: CHOL/HDL RATIO 2.8 (0.00-4.99); CHOLESTEROL 139 MG/DL (0-200); HDL CHOLESTEROL 49 MG/DL (35-60); LDL CHOLESTEROL 80 MG/DL (50-100); TRIGLYCERIDES 73 MG/DL (20-135)
[2020-01-01 07:31] LABS: HEMOGLOBIN A1C 5.3 % (4.5-6.2)
[2020-01-01 07:50] VITALS: BP 114/61
[2020-01-01] MEDS: nicotine 21mg patch - 24 hr TD SCH (08:00)
--- NOTE | 2020-01-01 09:38 | NUR ---
Malnutrition Consult: Pt admit DX SI and recent meth abuse per EMR. PO 100% all meals minus 1 milk so far this admit meeting needs. No edema/wounds. Pt does not meet minimum malnutrition criteria at this time. To f/u 01/04 for initial assessment. Addendum: 01/01/20 at [address] Amended: Links added.
[2020-01-01] MEDS ORDERED: FLU VACC QS2020-21(6MOS UP)/PF 60 MCG/0.5 ML SYRINGE IMVAC ONE (10:00)
--- NOTE | 2020-01-01 16:11 | NUR ---
Positive MRSA swab result received from Amalia in laboratory. Pt was educated on the importance of handwashing. Pt verbalized understanding.
--- NOTE | 2020-01-01 16:39 | NUR ---
Nursing Progress Note: Legal hold: 5150 Expires 01/02 @ 26049 Client on involuntary status for DTS Report received from JUNIOR Shelley with use of SBAR. Why are they here: Presented self to the ED complaining of suicidal ideation. He reported that he had been feeling depressed recently but no event triggered this. He reported that he is not currently taking his medications. He reported that he ran out of his DepMiami2Vegaste and b3 bio. He reports that his psychiatrist is at [facility] and he missed an appointment which caused him to run out. Endorses visual hallucinations. He notes that he last snorted methamphetamine 4 days ago. Denies any other medical concerns. Assessment What has happened this shift: Received patient sleeping at shift change, no distress noted. Pt awoke for breakfast then went back to bed. Pt was cooperative with medication and care. Pt isolated to his bed sleeping the entire shift, but did come out for snack and meals. Pt presents as fatigued and wants to sleep, pt reports last methamphetamine use was four days ago. Pt endorses SI without a plan. Pt was irritable at times during meal c/o he wasn't on the right diet. House Moving Supervisor explained he is correctly on a regular diet. No delusional statements noted this shift. Pt declined his flu vaccine today. Will continue to monitor. Did not attend PM patio break with peers. Pt woke up from sleeping around 1630 c/o neck pain 11/19. Tylenol was administered with effect. Pt also voiced that he was upset because "No one woke me up for snack!" It was explained that 2 tech's attempted to wake him up and he grunted and rolled over. Received phone call from Amalia at the lab pt has a POSITIVE NASAL MRSA SWAB. Pt was educated on the importance of hand washing. S/I, H/I: Pt denies both. A/VH: Pt denies both. Sleep: 9.75 hours per Sleep Assessment. Slept most of the shift. ADL's: Independent. Pt showered today. Group attendance: No Were meds taken: No, only scheduled med today was Nicotine patch, which he declined. Any med S/E: None reported or observed. Mental Status Exam Appearance: Disheveled r/t sleeping in bed all day. Pt showered today. Wearing green unit scrubs. Eye contact: Fair Behavior: Cooperative, fatigued. Sleeping in bed most of shift, up for meals and snacks. Speech: Clear, normal rate/rhythm. Mood: Fatigued Affect: Blunted Thought process: Tangential. Thought Content: Wants to sleep. Cognition: A&Ox4 Insight: Poor Judgment: Poor Interventions PRN's used: Tylenol Therapeutic interventions: Introduced self and established rapport, maintained a safe and supportive environment, ensured contract for safety, provided active listening and positive encouragement, encouraged participation on the unit, and maintained Q 15min safety checks. Restraints/seclusion/emergency medication: None Justification of Continued Inpatient Treatment: Patient requires interruption of current crisis, medication adjustments, and a safe and supportive environment.
[2020-01-01 19:00] VITALS: BP 103/51
[2020-01-01] MEDS: quetiapine 100mg tablet PO SCH (20:30)
[2020-01-01] MEDS: divalproex sod 250mg ER (24-hour) tablet PO SCH (20:31)
--- NOTE | 2020-01-02 00:38 | NUR ---
Nursing Progress Note: Legal hold: 5150 Expires 01/02 @ 0025 Client on involuntary status for DTS Report received from JUNIOR Shleley with use of SBAR. Why are they here: Presented self to the ED complaining of suicidal ideation. He reported that he had been feeling depressed recently but no event triggered this. He reported that he is not currently taking his medications. He reported that he ran out of his Depakote and Seroquel. He reports that his psychiatrist is at [facility] and he missed an appointment which caused him to run out. Endorses visual hallucinations. He notes that he last snorted methamphetamine 4 days ago. Denies any other medical concerns. Assessment What has happened this shift: Patient was lying in his bed at shift change, no distress noted. Patient continues to present as fatigued. This music writer heard patient yelling shortly after shift change, when entering the room patient was cursing and yelling at the hospitalist. Pt was angry because "Everyone keeps asking me the same fucking questions!" Gis Software Engineer explained to patient about being respectful to all staff and that staff is here to help. Pt states "No one fucking cares about me!" Pt pulled the covers over his head and ignored anymore questions music writer asked. Pt remained in bed the entire shift, up for HS snack then back to bed. Gis Software Engineer reinforced the importance of hand washing. Pt refused flu vaccine. Will continue to monitor. S/I, H/I: Pt denies both. A/VH: Pt denies both. Sleep: Pt slept most of shift. Was up for HS snack. ADL's: Independent Group attendance: No night group. Were meds taken: Yes, without incident. Any med S/E: None reported or observed. Mental Status Exam Appearance: Disheveled r/t sleeping in bed all day. Wearing clean green unit scrubs. Eye contact: Fair Behavior: Cooperative, irritable. Isolates to room and self. Speech: Clear, audible, tirade Mood: Fatigued, irritable Affect: Blunted Thought process: Tangential. Thought Content: Sleeping and eating. Cognition: A&Ox4 Insight: Poor Judgment: Poor Interventions PRN's used: None Therapeutic interventions: Introduced self and established rapport, maintained a safe and supportive environment, ensured contract for safety, provided active listening and positive encouragement, encouraged participation on the unit, and maintained Q 15min safety checks. Restraints/seclusion/emergency medication: None Justification of Continued Inpatient Treatment: Patient requires interruption of current crisis, medication adjustments, and a safe and supportive environment.
[2020-01-02 07:26] VITALS: BP 87/60
[2020-01-02] MEDS: LORazepam 1 MG tablet PO PRN (07:57)
[2020-01-02] MEDS: nicotine 21mg patch - 24 hr TD SCH (08:00)
[2020-01-02] MEDS ORDERED: LORazepam 1 MG tablet PO ONE (17:35)
[2020-01-02] MEDS ORDERED: QUEtiapine 25mg tablet PO ONE (17:35)
--- NOTE | 2020-01-02 17:57 | NUR ---
Nursing Progress Note: Legal hold: 5150 Expires 01/02 @ 14772 Client on involuntary status for DTS Report received from Loni Cramer RN with use of SBAR. Why are they here: Presented self to the ED complaining of suicidal ideation. He reported that he had been feeling depressed recently but no event triggered this. He reported that he is not currently taking his medications. He reported that he ran out of his Depakote and SeroA&E Complete [employer] Servicesl. He reports that his psychiatrist is at [facility] and he missed an appointment which caused him to run out. Endorses visual hallucinations. He notes that he last snorted methamphetamine 4 days ago. Denies any other medical concerns. Assessment What has happened this shift: Pt. asleep at start of shift. Pt. awake for breakfast. At breakfast pt. became irate, yelling, You gave me the wrong tray! Pt. is cursing and belittling staff, stating, You cant figure something so simple out you idiot! Pt. asked to go to his room to calm down. Pt. got into his room and then punched the wall, leaving a hole in the wall. RN informed pt. that this is not acceptable and pt. yelled F you! Pt. this is not acceptable and security will be called if he does not calm down. Pt. then replied, Im sorry. Pt. offered Ativan and took 1mg po with good effect. Pt. apologized a second time and then went to sleep. When pt. awoke 1:1 done at bedside. Pt. is confused about the time and where he is at. Pt. reoriented. Pt. reports feeling suicidal without a plan. Pt. denies HI, A/V hallucinations. Pt. reports feeling hopeless about the future. Pt. states he has no support systems. Pt.s responses are mostly one word and when asked about circumstances of his admission pt. just states, Im suicidal. Pt. slept most of the day waking up for meals. In the evening pt. again became anxious and approached the nursing station asking for a social media designer. Pt. again reminded that a social media designer would not see him until tomorrow but that the doctor will see him tonight. Pt. became agitated stating, "If you let me out of here I will find a way to kill myself!". Pt. given one time order of Seroquil 100mg and Ativan 1mg po. With good effect. Pt.s hand was X-Rayed and the following was revealed: IMPRESSION: Old fracture deformities at the base of the fourth and fifth metacarpal bones involving the carpometacarpal joint. There are a few well-corticated small bony fragments seen along the dorsal margin of the joint most likely related to old injury. No acute fracture is identified. The remainder of the right left hand bony structures appear to be intact. S/I, H/I: Pt. endorses SI without a plan, but states, Ill figure something out. A/VH: Pt denies both. Sleep: Pt. napped most of the day. ADL's: Independent. Group attendance: No Were meds taken: N/A. Any med S/E: None reported or observed. Mental Status Exam Appearance: Disheveled wearing street clothes. Eye contact: Fair Behavior: Angry outburst in the AM, which pt. apologized for. Pt. then napped most of the day, awaking for food and drinks. Speech: WNL. Mood: Angry and depressed. Affect: Blunted Thought process: Circumstantial Thought Content: Getting needs met Cognition: A&Ox4 Insight: Poor Judgment: Poor Interventions PRN's used: Ativan x1 Therapeutic interventions: Introduced self and established rapport, maintained a safe and supportive environment, ensured contract for safety, provided active listening and positive encouragement, encouraged participation on the unit, and maintained Q 15min safety checks. Restraints/seclusion/emergency medication: None Justification of Continued Inpatient Treatment: Patient requires interruption of current crisis, medication adjustments, and a safe and supportive environment.
[2020-01-02] MEDS: quetiapine 100mg tablet PO SCH (20:05)
[2020-01-02] MEDS: divalproex sod 250mg ER (24-hour) tablet PO SCH (20:05)
[2020-01-02 20:48] VITALS: BP 90/60
--- NOTE | 2020-01-03 00:44 | NUR ---
Nursing Progress Note: Legal hold: 5150 Client on involuntary status for DTS Report received from nurseKatrin with use of SBAR Why are they here: Presented self to the ED complaining of suicidal ideation. He reported that he had been feeling depressed recently but no event triggered this. He reported that he is not currently taking his medications. He reported that he ran out of his Depakote and Seroquel. He reports that his psychiatrist is at [facility] and he missed an appointment which caused him to run out. Endorses visual hallucinations. He notes that he last snorted methamphetamine 4 days ago. Denies any other medical concerns. Assessment What has happened this shift: Pt was sleeping in bed at change of shift and when approached for 1:1 pt refused to cooperate. Pt would not answer questions and just lied there in bed ignoring this rn. Approximately 1 hour later pt came out of his room and asked for something for my mind. Pt explained that when he is about to fall asleep his mind is racing and wont allow him to relax. Pt was given hs meds and snack and went to bed without further issue. Pt was not as labile as previous shift. S/I, H/I: denies A/VH: denies Sleep: see sleep hours ADL's: independent Group attendance: no evening groups Were meds taken: yes Any med S/E: none noted Mental Status Exam Appearance: disheveled, messy hair Eye contact: fair Behavior: sleeping Speech: normal rate and rhythm Mood: tired, anxious Affect: flat Thought process: linear Thought Content: sleep Cognition: a/o x4 Insight: fair Judgment: poor Interventions PRN's used: ativan Therapeutic interventions: Introduced self and established rapport, maintained a safe and supportive environment, ensured contract for safety, provided active listening and positive encouragement, encouraged participation on the unit, and maintained Q 15min safety checks. Restraints/seclusion/emergency medication: None Justification of Continued Inpatient Treatment: Pt. requires interruption of current crisis, medication adjustments, and a safe and supportive environment.
[2020-01-03] MEDS: nicotine 14mg patch - 24hr TD SCH (07:52)
[2020-01-03 08:00] VITALS: BP 100/53
[2020-01-03] MEDS: LORazepam 1 MG tablet PO PRN ×2 (09:37→15:36)
[2020-01-03] MEDS: NICOTINE POLACRILEX 2 MG LOZENGE BC PRN ×2 (13:00→15:25)
--- NOTE | 2020-01-03 13:41 | NUR ---
DISCHARGE PLANNING Met with Fernando to discuss discharge plan. He was laying in bed and was polite and calm towards designer writer. He reported he has been living on the streets and he recently missed his phone appointment with Zoë at [facility]. He declined a referral to [facility] despite designer writer explaining how it could be helpful to him (help with finding housing, connecting with [facility], etc). Fernando is under the impression he will be getting $16,000 "back pay from unemployment". He stated he will have plenty of money for housing and does not want assistance with finding housing. Fernando receives SSI and does not have a payee. He could likely benefit from going to [facility] and getting a payee. He does not appear to be motivated to make any changes to his current lifestyle. JUDAH Li
--- NOTE | 2020-01-03 15:32 | NUR ---
Fernando requested to speak with magnetic tape typewriter operator to discuss [facility]. Explained again about the program and he requested a referral. Completed referral and faxed to [facility]. JUDAH Li
--- NOTE | 2020-01-03 17:20 | NUR ---
Nursing Progress Note: Legal hold: 5250 Client on involuntary status for DTS Report received from Loni Cramer RN with use of SBAR. Why are they here: Presented self to the ED complaining of suicidal ideation. He reported that he had been feeling depressed recently but no event triggered this. He reported that he is not currently taking his medications. He reported that he ran out of his Depakote and Seroquel. He reports that his psychiatrist is at [facility] and he missed an appointment which caused him to run out. Endorses visual hallucinations. He notes that he last snorted methamphetamine 4 days ago. Denies any other medical concerns. Assessment What has happened this shift: Pt. asleep at start of shift. Pt. awake for breakfast and medications. Pt. took all meds and ate all meals in community room. Pt. went back to sleep after breakfast. 1:1 done at bedside. Pt. endorses SI without a plan, but states, I will figure something out. Pt. reports 7/10 anxiety and 6/10 depression. Denies HI,A/V hallucinations. Pt. requested anxiolytic and received PRN Ativan 1mg with good effect. Pt. says that he did not see his primary provider yesterday, but pt. was seen by his provider and started on scheduled psychiatric medications. Pt. reports being afraid of being discharged. Pt. wanting to talk about discharge to [facility] and discussed this with health care social worker. Pt. reports he was at the [facility] 10 years ago. Pt. isolates to his room most of the day and sleeps often. Pt. encouraged not to sleep during the day so that he can sleep better tonight. Pt. encouraged to shower. Pt placed on a 5250. Pt. asked for Ativan in afternoon for anxiety and given Ativan 1mg with good effect. S/I, H/I: Pt. endorses SI without a plan, but states, Ill find a way when I get out. A/VH: Pt denies both. Sleep: Pt. napped most of the day. ADL's: Independent. Group attendance: No. Were meds taken: Yes. Any med S/E: Denies Mental Status Exam Appearance: Disheveled hair, unshaven, wearing street clothes. Eye contact: Fair Behavior: Pt. isolates to his room most of the day and sleeps. Speech: WNL. Mood: Depressed and anxious Affect: Congruent with affect. Thought process: Circumstantial Thought Content: Discharge Cognition: A&Ox4 Insight: Poor Judgment: Poor Interventions PRN's used: Ativan x2 Therapeutic interventions: Introduced self and established rapport, maintained a safe and supportive environment, ensured contract for safety, provided active listening and positive encouragement, encouraged participation on the unit, and maintained Q 15min safety checks. Restraints/seclusion/emergency medication: None Justification of Continued Inpatient Treatment: Patient requires interruption of current crisis, medication adjustments, and a safe and supportive environment.
[2020-01-03] MEDS: quetiapine 100mg tablet PO SCH (20:00)
[2020-01-03] MEDS: divalproex sod 250mg ER (24-hour) tablet PO SCH (20:00)
[2020-01-03 20:15] VITALS: BP 137/77
--- NOTE | 2020-01-04 00:20 | NUR ---
Nursing Progress Note: Legal hold: 5150 Client on involuntary status for DTS Report received from nurseFelix with use of SBAR Why are they here: Presented self to the ED complaining of suicidal ideation. He reported that he had been feeling depressed recently but no event triggered this. He reported that he is not currently taking his medications. He reported that he ran out of his Depakote and Seroquel. He reports that his psychiatrist is at [facility] and he missed an appointment which caused him to run out. Endorses visual hallucinations. He notes that he last snorted methamphetamine 4 days ago. Denies any other medical concerns. Assessment What has happened this shift: Pt sleeps most of evening shift, only coming out of his room when he has a need. Pt is still labile, easily angered but less so than previous shifts. Pt is endorsing being suicidal with no plan. Pt requested his hs meds early and they were given at 1999. Pt then went to sleep. Pt is requesting double portions in his meals S/I, H/I: endorses with no plan A/VH: denies Sleep: see sleep hours ADL's: independent Group attendance: no evening groups Were meds taken: yes Any med S/E: none noted Mental Status Exam Appearance: disheveled, messy hair Eye contact: fair Behavior: sleeping Speech: normal rate and rhythm Mood: tired, anxious Affect: flat Thought process: linear Thought Content: sleep Cognition: a/o x4 Insight: fair Judgment: poor Interventions PRN's used: n/a Therapeutic interventions: Introduced self and established rapport, maintained a safe and supportive environment, ensured contract for safety, provided active listening and positive encouragement, encouraged participation on the unit, and maintained Q 15min safety checks. Restraints/seclusion/emergency medication: None Justification of Continued Inpatient Treatment: Pt. requires interruption of current crisis, medication adjustments, and a safe and supportive environment.
[2020-01-04 08:00] VITALS: BP 99/55
[2020-01-04] MEDS: nicotine 14mg patch - 24hr TD SCH (08:01)
[2020-01-04] MEDS: NICOTINE POLACRILEX 2 MG LOZENGE BC PRN ×2 (08:24→13:18)
--- NOTE | 2020-01-04 09:28 | NUR ---
[facility] INTERVIEW 01/05/20 Scheduled Fernando a [facility] interview for tomorrow at 11 AM. If accepted he will not be able to be admitted until Friday01/10/20 due to Holiday. JUDAH Li
--- NOTE | 2020-01-04 12:14 | NUR ---
Initial: Pt admit DX SI, hx homeless w/ meth abuse, and major depression per EMR. PO 75-100% avg regular diet meeting needs. LBM 01/01. No nutrition concerns at this time. Will continue to monitor. Rec: 1. continue regular diet 2. bowel care per rx 3. wt per rx Addendum: 01/04/20 at [address] Amended: Links added.
[2020-01-04] MEDS: quetiapine 100mg tablet PO PRN (13:18)
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
[2020-01-04] MEDS ORDERED: CARIPRAZINE 1.5 MG CAPSULE PO ONE (18:40)
[2020-01-04] MEDS: LORazepam 1 MG tablet PO PRN (20:12)
[2020-01-04] MEDS: quetiapine 100mg tablet PO SCH (20:13)
[2020-01-04] MEDS: divalproex sod 250mg ER (24-hour) tablet PO SCH (20:14)
[2020-01-04 20:44] VITALS: BP 110/68
--- NOTE | 2020-01-04 22:45 | NUR ---
Nursing Progress Note: Legal hold: 5250 Client on involuntary status for DTS Report received from JUNIOR [place] with use of SBAR. Why are they here: Presented self to the ED complaining of suicidal ideation. He reported that he had been feeling depressed recently but no event triggered this. He reported that he is not currently taking his medications. He reported that he ran out of his Depakote and Seroquel. He reports that his psychiatrist is at [facility] and he missed an appointment which caused him to run out. Endorses visual hallucinations. He notes that he last snorted methamphetamine 4 days ago. Denies any other medical concerns. Assessment What has happened this shift: Pt. asleep at start of shift. Pt. was awake at shift change watching tv with peers in rec room. Pt made no c/o of feeling agitate this shift and talked about his interview with the [facility] tomorrow. He was med compliant ate snack in group then went to bed after meds. S/I, H/I: Denies A/VH: Denies Sleep: Pt. napped most of the day. ADL's: Independent. Group attendance: No. Pt. encouraged to shower. Were meds taken: Yes. Any med S/E: Denies Mental Status Exam Appearance: Disheveled hair, unshaven, wearing street clothes. Eye contact: Fair Behavior: Pt. isolates to his room most of the day and sleeps. Speech: WNL. Mood: Depressed and anxious Affect: Congruent with affect. Thought process: Circumstantial Thought Content: Getting his CA ID and disability payment Cognition: A&Ox4 Insight: Poor Judgment: Poor Interventions PRN's used: Ativan Therapeutic interventions: Introduced self and established rapport, maintained a safe and supportive environment, ensured contract for safety, provided active listening and positive encouragement, encouraged participation on the unit, and maintained Q 15min safety checks. Restraints/seclusion/emergency medication: None Justification of Continued Inpatient Treatment: Patient requires interruption of current crisis, medication adjustments, and a safe and supportive environment.
[2020-01-04] MEDS: mag hydrox/Alum hydrox/simeth 30ml oral suspension PO PRN (23:55)
[2020-01-05 07:19] VITALS: BP 97/48
[2020-01-05] MEDS: CARIPRAZINE 1.5 MG CAPSULE PO SCH (07:59)
[2020-01-05] MEDS: nicotine 14mg patch - 24hr TD SCH (08:01)
[2020-01-05] MEDS: LORazepam 1 MG tablet PO PRN (11:40)
--- NOTE | 2020-01-05 11:52 | NUR ---
Fernando was interviewed by Christo at [facility]. Christo reported he does not think Fernando is appropriate at this time. Requested another interview at a later time when Fernando is a little more stabilized. Christo agreed to a second interview. JUDAH Li
[2020-01-05] MEDS: NICOTINE POLACRILEX 2 MG LOZENGE BC PRN (14:36)
--- NOTE | 2020-01-05 16:15 | NUR ---
Nursing Progress Note: Legal hold: 5250 Client on involuntary status for DTS Report received from JUNIOR [place] with use of SBAR. Why are they here: Presented self to the ED complaining of suicidal ideation. He reported that he had been feeling depressed recently but no event triggered this. He reported that he is not currently taking his medications. He reported that he ran out of his Depakote and SeroExtreme Startupsl. He reports that his psychiatrist is at [facility] and he missed an appointment which caused him to run out. Endorses visual hallucinations. He notes that he last snorted methamphetamine 4 days ago. Denies any other medical concerns. Assessment What has happened this shift: Pt. asleep at start of shift. Pt. awoke and went to breakfast in dining room. Pt interviewed in room after breakfast. Pt stated his "life sucks" and at 29 yrs old it will not get better. Pt then talked about his upcoming interview with the [facility] today. He was med compliant. Asked for a PRN Ativan 1mg at 1140. Ate lunch in dining room. Spent the afternoon in bed resting. S/I, H/I: yes to S/I but denies plan A/VH: Denies Sleep: Pt. napped most of the afternoon. ADL's: Independent. Group attendance: No. Pt. encouraged to shower. Were meds taken: Yes. Any med S/E: Denies Mental Status Exam Appearance: Disheveled hair, unshaven, wearing green scrubs. Eye contact: Fair Behavior: Pt. isolates to his room most of the day and sleeps. Speech: WNL. Mood: Depressed and anxious Affect: Congruent with affect. Thought process: Circumstantial Thought Content: His "life sucks" and will not get better Cognition: A&Ox4 Insight: Poor Judgment: Poor Interventions PRN's used: Ativan Therapeutic interventions: Introduced self and established rapport, maintained a safe and supportive environment, ensured contract for safety, provided active listening and positive encouragement, encouraged participation on the unit, and maintained Q 15min safety checks. Restraints/seclusion/emergency medication: None Justification of Continued Inpatient Treatment: Patient requires interruption of current crisis, medication adjustments, and a safe and supportive environment.
[2020-01-05 19:54] VITALS: BP 115/73
[2020-01-05] MEDS: divalproex sod 250mg ER (24-hour) tablet PO SCH (20:05)
[2020-01-05] MEDS: quetiapine 100mg tablet PO SCH (20:05)
[2020-01-05] MEDS: mag hydrox/Alum hydrox/simeth 30ml oral suspension PO PRN (20:05)
--- NOTE | 2020-01-05 21:26 | NUR ---
Nursing Progress Note: Legal hold: 5250 Client on involuntary status for DTS Report received from JUNIOR Horne with use of SBAR. Why are they here: Presented self to the ED complaining of suicidal ideation. He reported that he had been feeling depressed recently but no event triggered this. He reported that he is not currently taking his medications. He reported that he ran out of his Depakote and SeroA-Gasl. He reports that his psychiatrist is at [facility] and he missed an appointment which caused him to run out. Endorses visual hallucinations. He notes that he last snorted methamphetamine 4 days ago. Denies any other medical concerns. Assessment What has happened this shift: Pt. in bed at shift change awake and resting. Pt states that he has heart burn from his dinner and requested Maalox which was helpful. Pt stayed to him self mostly this shift ate snack in group room was med compliant and went to bed. S/I, H/I: yes to S/I but denies plan A/VH: Denies Sleep: Pt. napped most of the afternoon. ADL's: Independent. Group attendance: No. Pt. encouraged to shower. Were meds taken: Yes. Any med S/E: Denies Mental Status Exam Appearance: Disheveled hair, unshaven, wearing green scrubs. Eye contact: Fair Behavior: Pt. isolates to his room most of the day and sleeps. Speech: WNL. Mood: Depressed and anxious Affect: Congruent with affect. Thought process: Circumstantial Thought Content: His "life sucks" and will not get better Cognition: A&Ox4 Insight: Poor Judgment: Poor Interventions PRN's used: Maalox Therapeutic interventions: Introduced self and established rapport, maintained a safe and supportive environment, ensured contract for safety, provided active listening and positive encouragement, encouraged participation on the unit, and maintained Q 15min safety checks. Restraints/seclusion/emergency medication: None Justification of Continued Inpatient Treatment: Patient requires interruption of current crisis, medication adjustments, and a safe and supportive environment.
[2020-01-06 07:09] VITALS: BP 114/73
[2020-01-06] MEDS: CARIPRAZINE 1.5 MG CAPSULE PO SCH (07:41)
[2020-01-06] MEDS: nicotine 14mg patch - 24hr TD SCH (07:41)
--- NOTE | 2020-01-06 12:32 | NUR ---
NURSING PROGRESS NOTE Legal hold: 5250 Client on involuntary status for DTS Report received from JUNIOR Cai with use of SBAR Why are they here: Presented self to the ED complaining of suicidal ideation. He reported that he had been feeling depressed recently but no event triggered this. He reported that he is not currently taking his medications. He reported that he ran out of his Depakote and Seroquel. He reports that his psychiatrist is at [facility] and he missed an appointment which caused him to run out. Endorses visual hallucinations. He notes that he last snorted methamphetamine 4 days ago. Denies any other medical concerns. Assessment What has happened this shift: Asleep at shift change. Cooperates with med pass and gets up for breakfast, then back to sleep. Sleeps thru morning and is awakened before lunch for assessment. He is resistive stating, "I'm sleeping." Denies suicidal thoughts but states he is thinking of "alot of different things", but won't elaborate. Disheveled, with irritated mood. Reminded to try and participate in activities while he is here and sleep less during the day so he can sleep better at night. He was receptive to this and mostly was polite. S/I, H/I: Denies A/VH: Pt denies both. Sleep: Pt. napped most of the day. ADL's: Independent. Group attendance: No. Were meds taken: Yes. Any med S/E: Denies Mental Status Exam Appearance: Disheveled Eye contact: poor Behavior: Pt. isolates to his room most of the day and sleeps. Speech: clear Mood: Depressed and anxious Affect: Congruent with affect. Thought process: Circumstantial Thought Content: Discharge Cognition: alert Insight: Poor Judgment: Poor Interventions PRN's used: None Therapeutic interventions: Introduced self and established rapport, maintained a safe and supportive environment, ensured contract for safety, provided active listening and positive encouragement, encouraged participation on the unit, and maintained Q 15min safety checks. Restraints/seclusion/emergency medication: None Justification of Continued Inpatient Treatment: Patient requires interruption of current crisis, medication adjustments, and a safe and supportive environment.
[2020-01-06] MEDS: NICOTINE POLACRILEX 2 MG LOZENGE BC PRN ×2 (15:50→20:42)
[2020-01-06] MEDS: mag hydrox/Alum hydrox/simeth 30ml oral suspension PO PRN (17:54)
[2020-01-06] MEDS: quetiapine 100mg tablet PO SCH (20:08)
[2020-01-06] MEDS: divalproex sod 250mg ER (24-hour) tablet PO SCH (20:09)
[2020-01-06 20:23] VITALS: BP 129/89
--- NOTE | 2020-01-06 22:47 | NUR ---
NURSING PROGRESS NOTE Legal hold: 5250 Client on involuntary status for DTS Report received from Katrin PACHECO with use of SBAR Why are they here: Presented self to the ED complaining of suicidal ideation. He reported that he had been feeling depressed recently but no event triggered this. He reported that he is not currently taking his medications. He reported that he ran out of his Depakote and Seroquel. He reports that his psychiatrist is at [facility] and he missed an appointment which caused him to run out. Endorses visual hallucinations. He notes that he last snorted methamphetamine 4 days ago. Denies any other medical concerns. Assessment What has happened this shift: Patient was up and in rec room with peers talking and watching tv. He was less agitated this shift and more social with staff and peers. He ate snack and was med compliant. S/I, H/I: Denies A/VH: Pt denies both. Sleep: Pt. napped most of the day. ADL's: Independent. Group attendance: No. Were meds taken: Yes. Any med S/E: Denies Mental Status Exam Appearance: Disheveled Eye contact: poor Behavior: Pt. isolates to his room most of the day and sleeps. Speech: clear Mood: Depressed and anxious Affect: Congruent with affect. Thought process: Circumstantial Thought Content: Discharge Cognition: alert Insight: Poor Judgment: Poor Interventions PRN's used: None Therapeutic interventions: Introduced self and established rapport, maintained a safe and supportive environment, ensured contract for safety, provided active listening and positive encouragement, encouraged participation on the unit, and maintained Q 15min safety checks. Restraints/seclusion/emergency medication: None Justification of Continued Inpatient Treatment: Patient requires interruption of current crisis, medication adjustments, and a safe and supportive environment.
[2020-01-07 07:37] VITALS: BP 108/68
[2020-01-07 07:46] VITALS: BP 108/68
[2020-01-07] MEDS: nicotine 14mg patch - 24hr TD SCH (08:04)
[2020-01-07] MEDS: CARIPRAZINE 1.5 MG CAPSULE PO SCH (08:04)
[2020-01-07] MEDS: NICOTINE POLACRILEX 2 MG LOZENGE BC PRN ×2 (08:32→19:02)
[2020-01-07] MEDS: quetiapine 100mg tablet PO PRN (11:30)
--- NOTE | 2020-01-07 13:34 | NUR ---
NURSING PROGRESS NOTE Legal hold: 5250 Client on involuntary status for DTS Report received from JUNIOR Molina with use of SBAR Why are they here: Presented self to the ED complaining of suicidal ideation. He reported that he had been feeling depressed recently but no event triggered this. He reported that he is not currently taking his medications. He reported that he ran out of his Depakote and Seroquel. He reports that his psychiatrist is at [facility] and he missed an appointment which caused him to run out. Endorses visual hallucinations. He notes that he last snorted methamphetamine 4 days ago. Denies any other medical concerns. Assessment What has happened this shift: Med compliant and is eating and drinking well. Awake throughout morning, up and about. Reported to this nurse at mid morning, "you need to make my roommate stop coming on to me, he keeps staring at me and trying to touch me." The situation was discussed with his roommate by this nurse and Preparation [facility] Coordinator. The patient continued to have increased anxiety and requested prn Seroquel which was provided. He ate lunch and slept for part of afternoon. Denies hallucinations and suicidal ideation. S/I, H/I: Denies A/VH: Pt denies Sleep: napped ADL's: Independent. Group attendance: No. Were meds taken: Yes. Any med S/E: Denies Mental Status Exam Appearance: neat and clean Eye contact: direct Behavior: increased anxiety at times Speech: clear Mood: Depressed and anxious Affect: Congruent with affect. Thought process: Circumstantial Thought Content: complaint about roommate Cognition: alert Insight: Poor Judgment: Poor Interventions PRN's used: [place], Seroquel Therapeutic interventions: Introduced self and established rapport, maintained a safe and supportive environment, ensured contract for safety, provided active listening and positive encouragement, encouraged participation on the unit, and maintained Q 15min safety checks. Restraints/seclusion/emergency medication: None Justification of Continued Inpatient Treatment: Patient requires interruption of current crisis, medication adjustments, and a safe and supportive environment.
[2020-01-07] MEDS: LORazepam 1 MG tablet PO PRN (16:44)
[2020-01-07] MEDS: mag hydrox/Alum hydrox/simeth 30ml oral suspension PO PRN (17:53)
[2020-01-07 20:00] VITALS: BP 111/71
[2020-01-07] MEDS: divalproex sod 250mg ER (24-hour) tablet PO SCH (20:11)
[2020-01-07] MEDS: quetiapine 100mg tablet PO SCH (20:13)
--- NOTE | 2020-01-07 23:35 | NUR ---
Client on involuntary status for DTS Report received from Katrin PACHECO with use of SBAR Why are they here: Presented self to the ED complaining of suicidal ideation. He reported that he had been feeling depressed recently but no event triggered this. He reported that he is not currently taking his medications. He reported that he ran out of his Depakote and Seroquel. He reports that his psychiatrist is at [facility] and he missed an appointment which caused him to run out. Endorses visual hallucinations. He notes that he last snorted methamphetamine 4 days ago. Denies any other medical concerns. Assessment What has happened this shift: Pt attended snack and socialized with peers but otherwise kept to himself in his room. He was pleasant and denies SI but states depression /10 and anxiety /10. He states he usually has VH but they come and go. Pt compliant with all medications. S/I, H/I: Denies A/VH: Pt states he sees VH intermittently. Sleep: See Sleep Assessment. ADL's: Independent Group attendance: None at night Were meds taken: Yes Any med S/E: None noted nor observed Mental Status Exam Appearance: Disheveled in personal clothing Eye contact: Good Behavior: Cooperative, social with peers when at snack Speech: Clear Mood: "Doing better" Affect: Blunted Thought process: Circumstantial Thought Content: Discharge Cognition: A/Ox4 Insight: Poor Judgment: Poor Interventions PRN's used: Nicotine Lozenge Therapeutic interventions: Introduced self and established rapport, maintained a safe and supportive environment, ensured contract for safety, provided active listening and positive encouragement, encouraged participation on the unit, and maintained Q 15min safety checks. Restraints/seclusion/emergency medication: None Justification of Continued Inpatient Treatment: Patient requires interruption of current crisis, medication adjustments, and a safe and supportive environment.
[2020-01-08 07:28] VITALS: BP 119/68
[2020-01-08] MEDS: CARIPRAZINE 1.5 MG CAPSULE PO SCH (07:55)
[2020-01-08] MEDS: nicotine 14mg patch - 24hr TD SCH (07:56)
[2020-01-08] MEDS: NICOTINE POLACRILEX 2 MG LOZENGE BC PRN ×2 (08:17→12:03)
[2020-01-08] MEDS: LORazepam 1 MG tablet PO PRN (12:03)
[2020-01-08] MEDS ORDERED: CARI1.5C PO (12:39)
[2020-01-08] MEDS ORDERED: QUET300T2 PO (12:39)
[2020-01-08] MEDS ORDERED: DIVA-81 PO (12:39)
--- NOTE | 2020-01-08 13:20 | NUR ---
DISCHARGE NOTE The patient was discharged today at 1320. He left with all belongings, and instructions. Medications were sent to [facility] by Dr. Moreno. The patient will be staying with his mother and sister at [facility]. He was escorted to the lobby by FRANCESCA Aiken to await cab ride to location. He stated he was not having any suicidal thoughts, and he plans to walk up to [facility] to obtain his medications at [facility].
== END 2020-01-08 13:20 | disposition home or self-care (01) | DRG 751 ==
LOC: ADULT MH 17:13
PROVIDERS: ADMIT Psychiatry & Neurology Psychiatry; ATTEND Psychiatry & Neurology Psychiatry
DX: F33.2 Major depressive disorder, recurrent severe without psychotic features (principal); R45.851 Suicidal ideations; E11.9 Type 2 diabetes mellitus without complications; F15.90 Other stimulant use, unspecified, uncomplicated; F20.9 Schizophrenia, unspecified; I10 Essential (primary) hypertension; J45.909 Unspecified asthma, uncomplicated; F17.210 Nicotine dependence, cigarettes, uncomplicated; Z79.899 Other long term (current) drug therapy; Z88.0 Allergy status to penicillin; Z91.14 Patient's other noncompliance with medication regimen; Z59.0 Homelessness; Z28.82 Immunization not carried out because of caregiver refusal
CPT/HCPCS: 36415; 73130; 80061; 83036; 87081

== ENCOUNTER 2020-01-21 18:47 | Emergency (ER) | payer MEDICAID ==
[~2020-01-21] VITALS: Ht 170.2 cm; Wt 62.0 kg
[~2020-01-21 18:47] MED LIST changes: +CARI1.5C PO; -CLE150C PO; -NICO-631 TD; -PALI156D IM; -PALI6TAB6 PO; -QUET-1 PO; +QUET300T2 PO; -TRAZ-251 PO
--- NOTE | 2020-01-21 19:32 | NUR ---
augustineylar and serroquel not taking at this time patient reports no PHUONG
--- NOTE | 2020-01-21 19:56 | NUR ---
called to report panic attack for Dr French, patient reports he is feeling anxious and unsettled. Awaiting orders
[2020-01-21] MEDS ORDERED: LORazepam 1 MG tablet PO ONE (20:05)
--- NOTE | 2020-01-21 20:16 | NUR ---
reportsfeelinglike he failed at life
--- NOTE | 2020-01-21 20:23 | NUR ---
aleisha rodriguez in pharmacy
[2020-01-21] MEDS ORDERED: CARI1.5C PO (20:36)
[2020-01-21] MEDS ORDERED: DIVA-81 PO (20:38)
[2020-01-21] MEDS ORDERED: QUET300T2 PO (20:40)
[2020-01-21] MEDS: divalproex sod 250mg ER (24-hour) tablet PO SCH (21:06)
[2020-01-21] MEDS: quetiapine 100mg tablet PO SCH (21:06)
[2020-01-21 21:27] LABS: BASOPHILS % (AUTO) 0.6 % (0-1); EOSINOPHILS % (AUTO) 1.2 % (0-6); HEMATOCRIT 41.3 % (42.0-52.0); LYMPHOCYTES # (AUTO) 1.5 X10'3 (1.1-4.8); LYMPHOCYTES % (AUTO) 37.5 % (21-51); MEAN CORPUSCULAR HEMOGLOBIN 31.3 PG (27.0-31.0); MEAN CORPUSCULAR HGB CONC 33.9 g/dL (33.0-36.5); MEAN CORPUSCULAR VOLUME 92.6 FL (78-98); MEAN PLATELET VOLUME 8.9 FL (7.4-10.4); MONOCYTES # (AUTO) 0.4 X10'3 (0-0.9); MONOCYTES % (AUTO) 10.5 % (2-12); NEUTROPHILS % (AUTO) 50.2 % (42-75); PLATELET COUNT 198 X10'3 (140-440); RED BLOOD COUNT 4.46 X10'6 (4.70-6.10); RED CELL DISTRIBUTION WIDTH 13.9 % (11.5-14.5)
--- NOTE | 2020-01-21 21:30 | NUR ---
CLOSES EYES OFF AND ON. PATIENT REPORTS FEELIGN SLEEPY
[2020-01-21 21:39] LABS: URINE AMPHETAMINE SCREEN NEGATIVE (Neg); URINE BARBITUATE SCREEN NEGATIVE (Neg); URINE BENZODIAZEPINES SCREEN NEGATIVE (Neg); URINE CANNABINOID SCREEN POSITIVE (Neg); URINE COCAINE SCREEN NEGATIVE (Neg); URINE METHADONE SCREEN NEGATIVE (Neg); URINE OPIATE SCREEN NEGATIVE (Neg); URINE PHENCYCLIDINE SCREEN NEGATIVE (Neg)
[2020-01-21 21:40] LABS: ALANINE AMINOTRANSFERASE 21 U/L (12-78); ALBUMIN 3.4 G/DL (3.4-5.0); ALBUMIN/GLOBULIN RATIO 1.3 (1.1-1.5); ANION GAP 6 (8-16); ASPARTATE AMINO TRANSFERASE 16 U/L (10-37); BILIRUBIN,TOTAL 0.3 MG/DL (0.1-1.0); BLOOD UREA NITROGEN 13 MG/DL (7-18); BUN/CREATININE RATIO 14.4 (5.4-32.0); CHLORIDE 108 MMOL/L (99-107); GLUCOSE 91 MG/DL (70-104); POTASSIUM 3.4 MMOL/L (3.5-5.1); SODIUM 146 MMOL/L (135-145); eGFR > 90 ML/MIN
[2020-01-21 21:41] LABS: ALKALINE PHOSPHATASE 62 IU/L (46-116)
[2020-01-21 21:42] LABS: ETHANOL < 0.010 GM/DL (0.0-0.010)
--- NOTE | 2020-01-21 23:30 | NUR ---
EYES CLOSED LYING ON LEFT SIDE. NO SIGNS OF DISTRESS
--- NOTE | 2020-01-22 00:30 | NUR ---
LYING SUPINE, EYES CLOSED RESPIRATION EVEN AND UNLABORED.
--- NOTE | 2020-01-22 01:30 | NUR ---
LYING SUPINE, NO SIGNS OF DISTRERESS, RESPIRATIONS EVEN AND UNLABORED
--- NOTE | 2020-01-22 02:30 | NUR ---
EYES CLOSED, LYING ON RIGHT SIDE NO SIGNS OF DISTRESS,
--- NOTE | 2020-01-22 03:17 | NUR ---
EYES CLOSED, NO SIGNS OF DISTRESS
--- NOTE | 2020-01-22 06:43 | NUR ---
pt sleeping in no obvious distress
[2020-01-22] MEDS: CARIPRAZINE 1.5 MG CAPSULE PO SCH (08:13)
--- NOTE | 2020-01-22 13:40 | NUR ---
offered to help assist with lunch, patient states "not ready to eat yet."
--- NOTE | 2020-01-22 19:00 | NUR ---
Pt is resting in bed, ate his dinner
[2020-01-22] MEDS: quetiapine 100mg tablet PO SCH (20:14)
[2020-01-22] MEDS: divalproex sod 250mg ER (24-hour) tablet PO SCH (20:14)
--- NOTE | 2020-01-22 21:00 | NUR ---
Pt is medication compliant and drinks orange juice
--- NOTE | 2020-01-23 02:07 | NUR ---
Pt is asleep on L side RR 14
--- NOTE | 2020-01-23 07:00 | NUR ---
Pt is medication compliant
--- NOTE | 2020-01-23 08:11 | NUR ---
pt is resting in his room no issues
[2020-01-23] MEDS: CARIPRAZINE 1.5 MG CAPSULE PO SCH (08:18)
[2020-01-23 09:29] LABS: CLARITY,URINE CLEAR (Clear); COLOR,URINE YELLOW (Yellow); GLUCOSE, URINE NEGATIVE (Neg); KETONES,URINE TRACE mg/dl (Neg); LEUKOCYTE ESTERASE ,URINE NEGATIVE (Neg); NITRITES, URINE NEGATIVE (Neg); OCCULT BLOOD,URINE NEGATIVE (Neg); PROTEIN,URINE NEGATIVE (Neg); UROBILINOGEN,URINE 0.2 E.U/dL (0.2-1.0)
[2020-01-23 09:31] LABS: UA COLLECTION TYPE CLN CATCH MIDSTREAM
--- NOTE | 2020-01-23 09:47 | NUR ---
pt is resting in his room. no issues
--- NOTE | 2020-01-23 10:00 | NUR ---
pt is resting in his room. no issues
--- NOTE | 2020-01-23 11:00 | NUR ---
pt is resting in his room. no issues
--- NOTE | 2020-01-23 12:00 | NUR ---
[facility]
--- NOTE | 2020-01-23 13:00 | NUR ---
pt is resting in his room. no issues
--- NOTE | 2020-01-23 14:00 | NUR ---
pt is resting in his room. no issues
--- NOTE | 2020-01-23 14:58 | NUR ---
[facility] MANAGER ETA 1015 ON 01/23
--- NOTE | 2020-01-23 16:00 | NUR ---
pt is resting in his room. no issues
--- NOTE | 2020-01-23 17:00 | NUR ---
pt is resting in his room. no issues
[2020-01-23 17:50] VITALS: BP 112/78
--- NOTE | 2020-01-23 18:00 | NUR ---
pt is resting in his room. no issues
[2020-01-23] MEDS: divalproex sod 250mg ER (24-hour) tablet PO SCH (20:15)
[2020-01-23] MEDS: quetiapine 100mg tablet PO SCH (20:15)
== END 2020-01-23 21:08 ==
LOC: ER 18:47
DX: R45.851 Suicidal ideations (principal); Z20.828 Contact with and (suspected) exposure to other viral communicable diseases; F32.9 Major depressive disorder, single episode, unspecified; J45.909 Unspecified asthma, uncomplicated; F20.9 Schizophrenia, unspecified; F17.200 Nicotine dependence, unspecified, uncomplicated; F12.90 Cannabis use, unspecified, uncomplicated; F15.90 Other stimulant use, unspecified, uncomplicated; Z86.69 Personal history of other diseases of the nervous system and sense organs; Z98.890 Other specified postprocedural states; Z88.0 Allergy status to penicillin; Z88.1 Allergy status to other antibiotic agents; Z88.8 Allergy status to other drugs, medicaments and biological substances; Z79.899 Other long term (current) drug therapy
CPT/HCPCS: 36415; 80053; 80305; 80320; 81003; 84443; 85025; 87635; 99285; C9803

== ENCOUNTER → 2020-03-20 | Emergency (ER) | payer MEDICAID ==
[~2020-03-20] VITALS: Ht 170.2 cm; Wt 66.4 kg
[~2020-03-20] MED LIST changes: +ZIPR20CA2 PO; +quetiapine 100mg tablet PO ONE; +ziprasidone 20mg capsule PO STA
[2020-03-20 05:30] VITALS: BP 110/58
== END | disposition home or self-care (01) ==
LOC: ER 02:06
DX: F20.9 Schizophrenia, unspecified (principal); J45.909 Unspecified asthma, uncomplicated; F17.200 Nicotine dependence, unspecified, uncomplicated; F15.90 Other stimulant use, unspecified, uncomplicated; Z88.0 Allergy status to penicillin; Z88.2 Allergy status to sulfonamides; Z88.8 Allergy status to other drugs, medicaments and biological substances; Z79.899 Other long term (current) drug therapy; Z86.69 Personal history of other diseases of the nervous system and sense organs
CPT/HCPCS: 36415; 80164; 99283; 99284

== ENCOUNTER 2020-04-01 18:31 | Emergency (ER) | payer MEDICAID ==
[~2020-04-01] VITALS: Ht 170.2 cm; Wt 53.4 kg
[~2020-04-01 18:31] MED LIST changes: -quetiapine 100mg tablet PO ONE; -ziprasidone 20mg capsule PO STA
--- NOTE | 2020-04-01 19:18 | NUR ---
Patient reports smoking a cigarette earlier today, coughng up blood. pateint denies fever, reports congestion x 5 days. No COVID exposure
[2020-04-01] MEDS ORDERED: normal saline 1000ML IV soln IVB ONE (19:30)
[2020-04-01 20:19] VITALS: BP 96/49
== END 2020-04-01 21:02 | disposition left against medical advice (07) ==
LOC: ER 18:33
DX: R05 Cough (principal); R06.02 Shortness of breath; F17.210 Nicotine dependence, cigarettes, uncomplicated; F41.9 Anxiety disorder, unspecified; F15.90 Other stimulant use, unspecified, uncomplicated; G43.909 Migraine, unspecified, not intractable, without status migrainosus; J45.909 Unspecified asthma, uncomplicated; F12.90 Cannabis use, unspecified, uncomplicated; Z88.0 Allergy status to penicillin; Z88.2 Allergy status to sulfonamides; Z88.8 Allergy status to other drugs, medicaments and biological substances; Z79.899 Other long term (current) drug therapy
CPT/HCPCS: 71045; 93005; 96360; 99283; J7030

== ENCOUNTER 2020-04-08 21:42 | Emergency (ER) | payer MEDICAID ==
[~2020-04-08] VITALS: Ht 170.2 cm; Wt 65.8 kg
[2020-04-08 21:55] VITALS: BP 107/55
--- NOTE | 2020-04-08 22:23 | NUR ---
PATIENT PRESENTS TODAY "FEELING SUICIDAL", IS HOMELESS WITH HIS MOM WHOIS UNSUPPORTIVE TO HIM SINCE SHE "IS UNABLE TO CARE FOR HERSELF". DOES NOT HAVE A SPECIFIC PLAN BUT "I WILL GET THE JOB DONE, IT S A MATTER OF WHEN NOT IF". PATIENT IS TRYING TO GET INTO THE [facility]. HAS HAD PREVIOUS ATTEMPT BY OVERDOSE. HAS BEEN PRESCRIBED DEPAKOTE, PRAZOSIN, SEROQUL IN THE PAST, CURRENTLY BEEN OUT OF HIS MEDS FOR 3 DAYS.
[2020-04-08 22:54] LABS: BASOPHILS % (AUTO) 0.7 % (0-1); EOSINOPHILS # (AUTO) 0.2 X10'3 (0-0.9); EOSINOPHILS % (AUTO) 2.5 % (0-6); HEMATOCRIT 39.5 % (42.0-52.0); HEMOGLOBIN 13.4 g/dl (14.0-17.9); LYMPHOCYTES # (AUTO) 1.7 X10'3 (1.1-4.8); LYMPHOCYTES % (AUTO) 26.3 % (21-51); MEAN CORPUSCULAR HEMOGLOBIN 30.4 PG (27.0-31.0); MEAN CORPUSCULAR VOLUME 89.5 FL (78-98); MONOCYTES # (AUTO) 0.6 X10'3 (0-0.9); MONOCYTES % (AUTO) 8.5 % (2-12); NEUTROPHILS # (AUTO) 4.1 X10'3 (1.8-7.7); PLATELET COUNT 299 X10'3 (140-440); RED BLOOD COUNT 4.41 X10'6 (4.70-6.10); RED CELL DISTRIBUTION WIDTH 13.3 % (11.5-14.5); WHITE BLOOD COUNT 6.5 X10'3 (4.5-11.0)
[2020-04-08] MEDS ORDERED: QUET300T2 PO (22:54)
[2020-04-08] MEDS ORDERED: ZIPR20CA2 PO (22:54)
[2020-04-08] MEDS ORDERED: DIVA-81 PO (22:54)
[2020-04-08] MEDS ORDERED: ziprasidone 20mg capsule PO ONE (23:00)
[2020-04-08] MEDS ORDERED: divalproex sodium 500mg tablet.DR PO ONE (23:00)
[2020-04-08] MEDS ORDERED: divalproex sodium 500mg tablet.DR PO SCH (23:00)
[2020-04-08 23:14] LABS: ALANINE AMINOTRANSFERASE 36 U/L (12-78); ALBUMIN 3.5 G/DL (3.4-5.0); ALBUMIN/GLOBULIN RATIO 1.1 (1.1-1.5); ALKALINE PHOSPHATASE 64 IU/L (46-116); ANION GAP 5 (8-16); ASPARTATE AMINO TRANSFERASE 35 U/L (10-37); BILIRUBIN,TOTAL 0.4 MG/DL (0.1-1.0); BLOOD UREA NITROGEN 21 MG/DL (7-18); BUN/CREATININE RATIO 23.9 (5.4-32.0); CALCIUM 9.1 MG/DL (8.5-10.1); CHLORIDE 106 MMOL/L (99-107); CREATININE 0.88 MG/DL (0.60-1.10); ETHANOL < 0.010 GM/DL (0.0-0.010); GLUCOSE 100 MG/DL (70-104); POTASSIUM 3.5 MMOL/L (3.5-5.1); SODIUM 141 MMOL/L (135-145); TOTAL CARBON DIOXIDE 29.8 MMOL/L (24-32); TOTAL PROTEIN 6.6 G/DL (6.4-8.2); eGFR > 90 ML/MIN
[2020-04-08 23:15] LABS: ACETAMINOPHEN < 2.0 UG/ML (10-30)
[2020-04-09] MEDS ORDERED: quetiapine 100mg tablet PO ONE (21:00)
== END 2020-04-09 00:37 | disposition home or self-care (01) ==
LOC: ER 21:43
DX: F32.9 Major depressive disorder, single episode, unspecified (principal); R44.1 Visual hallucinations; J45.909 Unspecified asthma, uncomplicated; F31.9 Bipolar disorder, unspecified; F20.9 Schizophrenia, unspecified; F12.90 Cannabis use, unspecified, uncomplicated; F15.90 Other stimulant use, unspecified, uncomplicated; Z76.0 Encounter for issue of repeat prescription; Z86.69 Personal history of other diseases of the nervous system and sense organs; Z98.890 Other specified postprocedural states; Z59.0 Homelessness; Z88.0 Allergy status to penicillin; Z88.1 Allergy status to other antibiotic agents; Z88.8 Allergy status to other drugs, medicaments and biological substances; Z79.899 Other long term (current) drug therapy
CPT/HCPCS: 36415; 80053; 80320; 80329; 85025; 99284

== ENCOUNTER 2020-07-24 11:03 | Emergency (ER) | payer MEDICAID ==
[~2020-07-24] VITALS: Ht 172.7 cm; Wt 68.2 kg
[2020-07-24 11:19] VITALS: BP 128/76
== END 2020-07-24 11:50 | disposition home or self-care (01) ==
LOC: ER 11:04
DX: F31.9 Bipolar disorder, unspecified (principal); J45.909 Unspecified asthma, uncomplicated; F20.9 Schizophrenia, unspecified; F12.90 Cannabis use, unspecified, uncomplicated; F15.90 Other stimulant use, unspecified, uncomplicated; Z76.0 Encounter for issue of repeat prescription; Z86.69 Personal history of other diseases of the nervous system and sense organs; Z98.890 Other specified postprocedural states; Z59.0 Homelessness; Z88.0 Allergy status to penicillin; Z88.1 Allergy status to other antibiotic agents; Z88.8 Allergy status to other drugs, medicaments and biological substances; Z79.899 Other long term (current) drug therapy
CPT/HCPCS: 99281

== ENCOUNTER 2020-07-28 16:17 | Emergency (ER) | payer MEDICAID ==
[~2020-07-28] VITALS: Ht 171.4 cm; Wt 59.7 kg
[2020-07-28 16:21] VITALS: BP 109/72
== END 2020-07-28 17:44 | disposition home or self-care (01) ==
LOC: ER 16:17
DX: F15.10 Other stimulant abuse, uncomplicated (principal); M54.2 Cervicalgia; J45.909 Unspecified asthma, uncomplicated; F31.9 Bipolar disorder, unspecified; F20.9 Schizophrenia, unspecified; F12.90 Cannabis use, unspecified, uncomplicated; Z59.0 Homelessness; Z98.890 Other specified postprocedural states; Z86.69 Personal history of other diseases of the nervous system and sense organs; Z88.0 Allergy status to penicillin; Z88.2 Allergy status to sulfonamides; Z88.8 Allergy status to other drugs, medicaments and biological substances; Z79.899 Other long term (current) drug therapy
CPT/HCPCS: 99281

== ENCOUNTER 2020-08-24 16:28 | Emergency (ER) | payer MEDICAID ==
[~2020-08-24] VITALS: Ht 170.2 cm; Wt 59.4 kg
[2020-08-24 17:54] LABS: BASOPHILS % (AUTO) 0.5 % (0-1); EOSINOPHILS # (AUTO) 0.1 X10'3 (0-0.9); EOSINOPHILS % (AUTO) 1.4 % (0-6); HEMATOCRIT 44.5 % (42.0-52.0); HEMOGLOBIN 14.8 g/dl (14.0-17.9); LYMPHOCYTES # (AUTO) 1.7 X10'3 (1.1-4.8); LYMPHOCYTES % (AUTO) 24.5 % (21-51); MEAN CORPUSCULAR HEMOGLOBIN 30.5 PG (27.0-31.0); MEAN CORPUSCULAR HGB CONC 33.3 g/dL (33.0-36.5); MEAN CORPUSCULAR VOLUME 91.7 FL (78-98); MEAN PLATELET VOLUME 7.8 FL (7.4-10.4); MONOCYTES # (AUTO) 0.6 X10'3 (0-0.9); MONOCYTES % (AUTO) 8.3 % (2-12); NEUTROPHILS # (AUTO) 4.6 X10'3 (1.8-7.7); NEUTROPHILS % (AUTO) 65.3 % (42-75); PLATELET COUNT 286 X10'3 (140-440); RED BLOOD COUNT 4.86 X10'6 (4.70-6.10); RED CELL DISTRIBUTION WIDTH 13.8 % (11.5-14.5); WHITE BLOOD COUNT 7.1 X10'3 (4.5-11.0)
--- NOTE | 2020-08-24 18:01 | NUR ---
pt changed into green scrubs. Urine sample provided
[2020-08-24 18:13] LABS: ALANINE AMINOTRANSFERASE 25 U/L (12-78); ALBUMIN 4.3 G/DL (3.4-5.0); ALBUMIN/GLOBULIN RATIO 1.3 (1.1-1.5); ALKALINE PHOSPHATASE 67 IU/L (46-116); ANION GAP 11 (8-16); ASPARTATE AMINO TRANSFERASE 20 U/L (10-37); BILIRUBIN,TOTAL 0.6 MG/DL (0.1-1.0); BLOOD UREA NITROGEN 12 MG/DL (7-18); BUN/CREATININE RATIO 15.6 (5.4-32.0); CALCIUM 8.6 MG/DL (8.5-10.1); CHLORIDE 99 MMOL/L (99-107); CREATININE 0.77 MG/DL (0.60-1.10); GLUCOSE 83 MG/DL (70-104); POTASSIUM 3.4 MMOL/L (3.5-5.1); SODIUM 137 MMOL/L (135-145); TOTAL CARBON DIOXIDE 27.1 MMOL/L (24-32); TOTAL PROTEIN 7.6 G/DL (6.4-8.2); eGFR > 90 ML/MIN
[2020-08-24 18:15] LABS: ETHANOL < 0.010 GM/DL (0.0-0.010)
[2020-08-24 18:33] LABS: URINE AMPHETAMINE SCREEN NEGATIVE (Neg); URINE BARBITUATE SCREEN NEGATIVE (Neg); URINE BENZODIAZEPINES SCREEN NEGATIVE (Neg); URINE CANNABINOID SCREEN POSITIVE (Neg); URINE COCAINE SCREEN NEGATIVE (Neg); URINE METHADONE SCREEN NEGATIVE (Neg); URINE OPIATE SCREEN NEGATIVE (Neg); URINE PHENCYCLIDINE SCREEN NEGATIVE (Neg)
[2020-08-24 18:37] LABS: CLARITY,URINE CLEAR (Clear); COLOR,URINE YELLOW (Yellow); GLUCOSE, URINE NEGATIVE (Neg); KETONES,URINE NEGATIVE (Neg); LEUKOCYTE ESTERASE ,URINE NEGATIVE (Neg); NITRITES, URINE NEGATIVE (Neg); OCCULT BLOOD,URINE NEGATIVE (Neg); PH,URINE 7.5 (4.8-8.0); PROTEIN,URINE NEGATIVE (Neg)
[2020-08-24 18:38] LABS: UA COLLECTION TYPE VOIDED
--- NOTE | 2020-08-24 19:30 | NUR ---
Dr. Noble in to evaluate patient.
[2020-08-24] MEDS ORDERED: QUETIAPINE 50 MG TAB.SR.24H PO SCH (21:00)
--- NOTE | 2020-08-24 23:00 | NUR ---
Pt OOB and up to nurses station multiple times since beginning of shift. Pt up to nurse's desk c/o small bump to right breast. Rash to stomach (which he states has been going on for months). No rash noted. Unable to feel "bump." Pt given NOC meds as prescribed.
--- NOTE | 2020-08-25 02:11 | NUR ---
Pt finally sleeping. No complaints voiced or reported. + rise and fall of chest noted.
--- NOTE | 2020-08-25 04:00 | NUR ---
Pt up to restroom. No noise heard from RR, but pt stated he had vomited while he was in RR.
--- NOTE | 2020-08-25 04:00 | NUR ---
Anjali michael in EDM - 08/25/20 at 0532 by AMEENA Pt up and ambulatory with unsteady gait. Pt assisted by this RN and JORGE to restroom. Pt able to stand to urinate with no assistance. Pt then assisted back to bed with minimal assist. Pt returned to sleep with no complaints voiced or reported.
--- NOTE | 2020-08-25 04:31 | NUR ---
PACKET FAXED TO [facility]
[2020-08-25 05:17] VITALS: BP 101/70
--- NOTE | 2020-08-25 05:31 | NUR ---
Pt sleeping. + rise and fall of chest noted. Pt remains visible from nursing station.
--- NOTE | 2020-08-25 06:30 | NUR ---
pt laying on right side in bed, no distress noted. will continue to monitor.
--- NOTE | 2020-08-25 07:45 | NUR ---
called by [facility] office requesting medical clearance sent over since was missing in packet. spoke with dr zamorano and stated will look into pt and add clearance.
--- NOTE | 2020-08-25 10:31 | NUR ---
pt sleeping on left side no distress noted.
--- NOTE | 2020-08-25 10:37 | NUR ---
pt walked to bathroom no assistance needed with steady gait.
--- NOTE | 2020-08-25 12:39 | NUR ---
COVID test collected, pt tolerated well. Now resting quietly.
--- NOTE | 2020-08-25 13:11 | NUR ---
Pt COVID result neg, called to [facility] kaye PACHECO and stated will orange picker after lunch, er charge notified.
[2020-08-25] MEDS ORDERED: DIVA-81 PO ×2 (17:39)
[2020-08-25] MEDS ORDERED: QUET300T2 PO (17:49)
== END 2020-08-25 15:49 | disposition home or self-care (01) ==
LOC: ER 16:28
DX: R45.851 Suicidal ideations (principal); Z20.822 Contact with and (suspected) exposure to COVID-19; F32.9 Major depressive disorder, single episode, unspecified; R45.1 Restlessness and agitation; J45.909 Unspecified asthma, uncomplicated; F20.9 Schizophrenia, unspecified; F12.90 Cannabis use, unspecified, uncomplicated; F15.90 Other stimulant use, unspecified, uncomplicated; Z86.69 Personal history of other diseases of the nervous system and sense organs; Z98.890 Other specified postprocedural states; Z59.0 Homelessness; Z88.0 Allergy status to penicillin; Z88.8 Allergy status to other drugs, medicaments and biological substances; Z88.1 Allergy status to other antibiotic agents; Z79.899 Other long term (current) drug therapy
CPT/HCPCS: 36415; 80053; 80305; 80320; 81003; 84443; 85025; 87635; 99285; C9803

== ENCOUNTER 2021-01-29 18:31 | Emergency (ER) | payer MEDICAID ==
[~2021-01-29] VITALS: Ht 167.6 cm; Wt 62.3 kg
[~2021-01-29 18:31] MED LIST changes: -CARI1.5C PO; -QUET300T2 PO; +QUET300T20 PO; -ZIPR20CA2 PO
[2021-01-29 20:38] LABS: BASOPHILS % (AUTO) 0.4 % (0-1); EOSINOPHILS % (AUTO) 0.1 % (0-6); HEMATOCRIT 42.7 % (42.0-52.0); HEMOGLOBIN 14.6 g/dl (14.0-17.9); LYMPHOCYTES # (AUTO) 0.9 X10'3 (1.1-4.8); LYMPHOCYTES % (AUTO) 9.8 % (21-51); MEAN CORPUSCULAR HEMOGLOBIN 29.8 PG (27.0-31.0); MEAN CORPUSCULAR HGB CONC 34.1 g/dL (33.0-36.5); MEAN CORPUSCULAR VOLUME 87.5 FL (78-98); MEAN PLATELET VOLUME 7.7 FL (7.4-10.4); MONOCYTES # (AUTO) 0.9 X10'3 (0-0.9); MONOCYTES % (AUTO) 9.8 % (2-12); NEUTROPHILS # (AUTO) 7.6 X10'3 (1.8-7.7); NEUTROPHILS % (AUTO) 79.9 % (42-75); PLATELET COUNT 320 X10'3 (140-440); RED BLOOD COUNT 4.88 X10'6 (4.70-6.10); RED CELL DISTRIBUTION WIDTH 14.3 % (11.5-14.5); WHITE BLOOD COUNT 9.5 X10'3 (4.5-11.0)
[2021-01-29 20:54] LABS: ALANINE AMINOTRANSFERASE 46 U/L (12-78); ALBUMIN 4.5 G/DL (3.4-5.0); ALBUMIN/GLOBULIN RATIO 1.2 (1.1-1.5); ALKALINE PHOSPHATASE 81 IU/L (46-116); ANION GAP 12 (8-16); ASPARTATE AMINO TRANSFERASE 79 U/L (10-37); BILIRUBIN,TOTAL 0.7 MG/DL (0.1-1.0); BLOOD UREA NITROGEN 30 MG/DL (7-18); CALCIUM 9.4 MG/DL (8.5-10.1); CHLORIDE 96 MMOL/L (99-107); CREATININE 1.07 MG/DL (0.60-1.10); ETHANOL < 0.010 GM/DL (0.0-0.010); GLUCOSE 118 MG/DL (70-104); SODIUM 136 MMOL/L (135-145); TOTAL CARBON DIOXIDE 28.1 MMOL/L (24-32); TOTAL PROTEIN 8.2 G/DL (6.4-8.2); eGFR 82 ML/MIN
[2021-01-29 22:09] LABS: URINE AMPHETAMINE SCREEN POSITIVE (Neg); URINE BARBITUATE SCREEN NEGATIVE (Neg); URINE BENZODIAZEPINES SCREEN NEGATIVE (Neg); URINE CANNABINOID SCREEN POSITIVE (Neg); URINE COCAINE SCREEN NEGATIVE (Neg); URINE METHADONE SCREEN NEGATIVE (Neg); URINE OPIATE SCREEN NEGATIVE (Neg); URINE PHENCYCLIDINE SCREEN NEGATIVE (Neg)
--- NOTE | 2021-01-30 06:54 | NUR ---
PACKET FAXED TO [facility]
--- NOTE | 2021-01-30 07:05 | NUR ---
PT WALKED TO OVERFLOW BED 25 FROM ER BED 14 WITH JUNIOR HOOPER.
--- NOTE | 2021-01-30 09:00 | NUR ---
Pt remains asleep in bed without signs of distress. Pt did not wake up for breakfast.
[2021-01-30 09:46] LABS: CLARITY,URINE SLIGHTLY CLOUDY (Clear); COLOR,URINE YELLOW (Yellow); GLUCOSE, URINE NEGATIVE (Neg); KETONES,URINE 15 mg/dl (Neg); LEUKOCYTE ESTERASE ,URINE NEGATIVE (Neg); NITRITES, URINE NEGATIVE (Neg); OCCULT BLOOD,URINE NEGATIVE (Neg); PROTEIN,URINE NEGATIVE (Neg); UROBILINOGEN,URINE 0.2 E.U/dL (0.2-1.0)
[2021-01-30 09:50] LABS: UA COLLECTION TYPE CLN CATCH MIDSTREAM
[2021-01-30 09:54] LABS: MUCUS STRANDS MANY /LPF (Neg); SQUAMOUS EPITHELIAL CELL,UR FEW /LPF (FEW)
[2021-01-30 09:57] LABS: HYALINE CASTS 0-3 /LPF (NEGATIVE)
[2021-01-30 09:58] LABS: WBC,URINE 0-4 /HPF (0-4)
[2021-01-30 09:59] LABS: BACTERIA,URINE FEW /HPF (Neg); RBC,URINE 0-2 /HPF (0-2)
--- NOTE | 2021-01-30 10:00 | NUR ---
Luis shultz/ DEMARCO at bedside evaluating pt.
--- NOTE | 2021-01-30 10:10 | NUR ---
Luis from [facility] asked pt about his methamphetamine use and pt began to escalate. Pt began yelling profanities. He stated "it's fine, if you're not going to put me on a 5150 I'll just go to [facility] and they'll place me on a hold!" He began to say "you guys just dont care about me! You could care less about the homeless. You guys don't want to help us!" He asked me get his phone for him, and I said to him that he is not allowed to have his cellphone until discharge. He then yelled "ok, whatever you dyke!"
--- NOTE | 2021-01-30 10:31 | NUR ---
Luis PAL speaking with patient regarding plan of care.
--- NOTE | 2021-01-30 11:00 | NUR ---
Pt had become belligerent with [facility] pocket maker, but has since met with Marbella campuzano: substance abuse treatment and he has become more cooperative.
--- NOTE | 2021-01-30 11:15 | NUR ---
Met with patient in regards to substance use and to see if patient was interested in resources for treatment options. Patient stated that he wanted to go to rehab. Patient was accepted in August to [facility] and failed to check in but would like to start the process again. I gave patient [facility]ac[facility] number with his partnership id so he can call and start the process. I will check back with patient and see what progress was made.
[2021-01-30] MEDS: ibuprofen tablet 400 MG TABLET PO PRN ×2 (11:21→20:43)
--- NOTE | 2021-01-30 13:01 | NUR ---
Pt lying in bed without signs of distress, appearing to be sleeping.
--- NOTE | 2021-01-30 15:00 | NUR ---
Pt making phone calls trying to arrange a treatment facility for discharge.
--- NOTE | 2021-01-30 16:22 | NUR ---
Partnership called (Zachary) and gave phone number for [facility] in [place]. Instructions were to call [facility] and set up screening appointment.
--- NOTE | 2021-01-30 16:24 | NUR ---
[facility] screening appointment: at 1545 have pt. call ext. [phone]
--- NOTE | 2021-01-30 17:00 | NUR ---
Pt currently sleeping quietly in bed. Pt has been on and off the phone trying to arrange a discharge to a treatment or dual dx facility.
--- NOTE | 2021-01-30 19:09 | NUR ---
Pt resting quietly in bed. No current complaints.
--- NOTE | 2021-01-30 21:00 | NUR ---
Pt laying in bed. Pt given snack and he requested motrin for his left LE pain. Pt cooperative and polite.
--- NOTE | 2021-01-31 06:20 | NUR ---
Patient ambulatory from Main ED 16 to ED OF bed 25. No distress observed. Patient given a warm blanket. Continue to monitor
--- NOTE | 2021-01-31 07:05 | NUR ---
Patient sleeping. No distress observed. Continue to monitor.
--- NOTE | 2021-01-31 08:15 | NUR ---
Patient is awake and eating. No distress observed. Continue to monitor.
[2021-01-31] MEDS ORDERED: DIVA500T9 PO (08:45)
[2021-01-31] MEDS ORDERED: DIVA-81 PO (08:45)
[2021-01-31 08:59] VITALS: BP 110/65
--- NOTE | 2021-01-31 09:35 | NUR ---
[facility] called to say that Tommie Skinner has accepted the pt today @ [id number], the acepting doctor is Dr. Grover. We still do not know when a subway train driver will be coming to get pt.
--- NOTE | 2021-01-31 11:11 | NUR ---
Luis [facility], speaking to patient about his drug problem and meth use. Patient has been here several times for meth use and suicidal. Luis advising patient that he won't be putting him on a hold anymore because he never follow through with drug rehab and continues to come to ED with same complaint. Patient got upset and telling Luis that he is going to make sure he loses his job. Patient yelled for a few minutes then calmed down.
--- NOTE | 2021-01-31 12:28 | NUR ---
Patient continues to sleep. No distress observed. Continue to monitor.
== END 2021-01-31 13:55 ==
LOC: ER 19:30
DX: R45.851 Suicidal ideations (principal); Z20.822 Contact with and (suspected) exposure to COVID-19; G80.9 Cerebral palsy, unspecified; G24.9 Dystonia, unspecified; G40.909 Epilepsy, unspecified, not intractable, without status epilepticus; J45.909 Unspecified asthma, uncomplicated; F12.90 Cannabis use, unspecified, uncomplicated; F15.90 Other stimulant use, unspecified, uncomplicated; Z59.00 Homelessness unspecified; Z88.0 Allergy status to penicillin; Z88.2 Allergy status to sulfonamides; Z88.8 Allergy status to other drugs, medicaments and biological substances
CPT/HCPCS: 36415; 80053; 80305; 80320; 81001; 84443; 85025; 87635; 99285; C9803

== ENCOUNTER 2021-08-24 02:03 | Emergency (ER) | payer MEDICAID ==
[~2021-08-24] VITALS: Ht 167.6 cm; Wt 59.1 kg
[~2021-08-24 02:03] MED LIST changes: +DIVA500T9 PO; -QUET300T20 PO
[2021-08-24] MEDS ORDERED: ondansetron 4mg rapidly disintigrating tab PO ONE (04:25)
[2021-08-24 04:50] LABS: BASOPHILS # (AUTO) 0.1 X10'3 (0-0.2); BASOPHILS % (AUTO) 0.3 % (0-1); EOSINOPHILS # (AUTO) 0.1 X10'3 (0-0.9); EOSINOPHILS % (AUTO) 0.3 % (0-6); HEMATOCRIT 46.5 % (42.0-52.0); HEMOGLOBIN 15.6 g/dl (14.0-17.9); LYMPHOCYTES # (AUTO) 0.7 X10'3 (1.1-4.8); LYMPHOCYTES % (AUTO) 3.8 % (21-51); MEAN CORPUSCULAR HEMOGLOBIN 28.1 PG (27.0-31.0); MEAN CORPUSCULAR HGB CONC 33.7 g/dL (33.0-36.5); MEAN CORPUSCULAR VOLUME 83.5 FL (78-98); MEAN PLATELET VOLUME 8.1 FL (7.4-10.4); MONOCYTES # (AUTO) 1.3 X10'3 (0-0.9); MONOCYTES % (AUTO) 7.6 % (2-12); NEUTROPHILS # (AUTO) 15.3 X10'3 (1.8-7.7); PLATELET COUNT 342 X10'3 (140-440); RED BLOOD COUNT 5.56 X10'6 (4.70-6.10); RED CELL DISTRIBUTION WIDTH 15.4 % (11.5-14.5); WHITE BLOOD COUNT 17.4 X10'3 (4.5-11.0)
[2021-08-24 05:03] LABS: ALANINE AMINOTRANSFERASE 67 U/L (12-78); ALBUMIN 5.2 G/DL (3.4-5.0); ALBUMIN/GLOBULIN RATIO 1.2 (1.1-1.5); ALKALINE PHOSPHATASE 109 IU/L (46-116); ANION GAP 14 (8-16); ASPARTATE AMINO TRANSFERASE 152 U/L (10-37); BILIRUBIN,TOTAL 1.4 MG/DL (0.1-1.0); BLOOD UREA NITROGEN 50 MG/DL (7-18); BUN/CREATININE RATIO 38.2 (5.4-32.0); CHLORIDE 91 MMOL/L (99-107); CREATININE 1.31 MG/DL (0.60-1.10); GLUCOSE 121 MG/DL (70-104); LIPASE 134 U/L (73-393); POTASSIUM 4.1 MMOL/L (3.5-5.1); SODIUM 131 MMOL/L (135-145); TOTAL PROTEIN 9.6 G/DL (6.4-8.2); eGFR 64 ML/MIN
[2021-08-24] MEDS ORDERED: diphenhydrAMINE 50 mg/ml inj IM ONE (05:30)
[2021-08-24] MEDS ORDERED: metoclopramide 5 mg/ml inj IM ONE (05:30)
[2021-08-24 05:42] VITALS: BP 124/96
--- NOTE | 2021-08-24 05:46 | NUR ---
Pt left room and came up to nursing station and stated he wanted to leave. Sonal STAPLETON stated she would get his paperwork. Patient stated he did not want to wait any longer and eloped out of ED. Pt is homeless and will not be driving. Pt did not have an IV
== END 2021-08-24 06:02 | disposition left against medical advice (07) ==
LOC: ER 02:04
DX: R11.2 Nausea with vomiting, unspecified (principal); J45.909 Unspecified asthma, uncomplicated; F31.9 Bipolar disorder, unspecified; F12.90 Cannabis use, unspecified, uncomplicated; F15.20 Other stimulant dependence, uncomplicated; Z88.0 Allergy status to penicillin; Z88.2 Allergy status to sulfonamides; Z88.8 Allergy status to other drugs, medicaments and biological substances; Z59.00 Homelessness unspecified
CPT/HCPCS: 36415; 80053; 83690; 84484; 85025; 93005; 96372; 99284; J1200; J2765

== ENCOUNTER 2021-08-24 12:19 | Emergency (ER) | payer MEDICAID | END 2021-08-24 14:02 | disposition left against medical advice (07) | LOC: ER 12:20 | DX: T67.5XXA Heat exhaustion, unspecified, initial encounter (principal); Z53.21 Procedure and treatment not carried out due to patient leaving prior to being seen by health care provider ==

== ENCOUNTER 2021-11-22 18:48 | Emergency (ER) | payer MEDICAID | END 2021-11-22 20:39 | disposition left against medical advice (07) | LOC: ER 18:49 | DX: Z00.8 Encounter for other general examination (principal); Z53.21 Procedure and treatment not carried out due to patient leaving prior to being seen by health care provider ==

== ENCOUNTER 2022-02-08 03:04 | Emergency (ER) | payer MEDICAID | END 2022-02-08 04:24 | disposition left against medical advice (07) | LOC: ER 03:04 | DX: R10.9 Unspecified abdominal pain (principal); Z53.21 Procedure and treatment not carried out due to patient leaving prior to being seen by health care provider ==

== ENCOUNTER 2022-04-24 17:09 | Inpatient (IN) | payer MEDICAID ==
[~2022-04-24] VITALS: Ht 177.8 cm; Wt 62.0 kg
[2022-04-24 19:11] LABS: BASOPHILS % (AUTO) 0.3 % (0-1); EOSINOPHILS # (AUTO) 0.1 X10'3 (0-0.9); EOSINOPHILS % (AUTO) 1.2 % (0-6); HEMATOCRIT 40.4 % (42.0-52.0); HEMOGLOBIN 13.2 g/dl (14.0-17.9); LYMPHOCYTES # (AUTO) 1.6 X10'3 (1.1-4.8); LYMPHOCYTES % (AUTO) 17.7 % (21-51); MEAN CORPUSCULAR HEMOGLOBIN 28.1 PG (27.0-31.0); MEAN CORPUSCULAR HGB CONC 32.7 g/dL (33.0-36.5); MEAN CORPUSCULAR VOLUME 85.9 FL (78-98); MEAN PLATELET VOLUME 7.6 FL (7.4-10.4); MONOCYTES # (AUTO) 0.8 X10'3 (0-0.9); MONOCYTES % (AUTO) 9.3 % (2-12); NEUTROPHILS # (AUTO) 6.4 X10'3 (1.8-7.7); NEUTROPHILS % (AUTO) 71.5 % (42-75); PLATELET COUNT 350 X10'3 (140-440); RED BLOOD COUNT 4.71 X10'6 (4.70-6.10); RED CELL DISTRIBUTION WIDTH 15.1 % (11.5-14.5)
[2022-04-24 19:16] LABS: CLARITY,URINE CLOUDY (Clear); COLOR,URINE YELLOW (Yellow); GLUCOSE, URINE NEGATIVE (Neg); KETONES,URINE NEGATIVE (Neg); LEUKOCYTE ESTERASE ,URINE NEGATIVE (Neg); NITRITES, URINE NEGATIVE (Neg); OCCULT BLOOD,URINE NEGATIVE (Neg); PH,URINE 7.5 (4.8-8.0); PROTEIN,URINE NEGATIVE (Neg)
[2022-04-24 19:19] LABS: URINE AMPHETAMINE SCREEN POSITIVE (Neg); URINE BARBITUATE SCREEN NEGATIVE (Neg); URINE BENZODIAZEPINES SCREEN NEGATIVE (Neg); URINE CANNABINOID SCREEN POSITIVE (Neg); URINE COCAINE SCREEN NEGATIVE (Neg); URINE METHADONE SCREEN NEGATIVE (Neg); URINE OPIATE SCREEN NEGATIVE (Neg); URINE PHENCYCLIDINE SCREEN NEGATIVE (Neg)
[2022-04-24 19:21] LABS: BACTERIA,URINE FEW /HPF (Neg); RBC,URINE 0-2 /HPF (0-2); SQUAMOUS EPITHELIAL CELL,UR NONE SEEN /LPF (FEW); UA COLLECTION TYPE CLN CATCH MIDSTREAM; WBC,URINE 0-4 /HPF (0-4)
[2022-04-24 19:22] LABS: AMORPHOUS PHOSPHATES 4+
[2022-04-24 19:23] LABS: ALANINE AMINOTRANSFERASE 33 U/L (12-78); ALBUMIN 3.5 G/DL (3.4-5.0); ALBUMIN/GLOBULIN RATIO 0.9 (1.1-1.5); ALKALINE PHOSPHATASE 91 IU/L (46-116); ANION GAP 7 (8-16); ASPARTATE AMINO TRANSFERASE 31 U/L (10-37); BILIRUBIN,TOTAL 0.2 MG/DL (0.1-1.0); BLOOD UREA NITROGEN 14 MG/DL (7-18); BUN/CREATININE RATIO 23.7 (5.4-32.0); CALCIUM 9.3 MG/DL (8.5-10.1); CHLORIDE 104 MMOL/L (99-107); CREATININE 0.59 MG/DL (0.60-1.10); ETHANOL < 0.010 GM/DL (0.0-0.010); GLUCOSE 83 MG/DL (70-104); POTASSIUM 4.1 MMOL/L (3.5-5.1); SODIUM 140 MMOL/L (135-145); TOTAL CARBON DIOXIDE 29.2 MMOL/L (24-32); TOTAL PROTEIN 7.4 G/DL (6.4-8.2); eGFR > 90 ML/MIN
--- NOTE | 2022-04-24 20:00 | NUR ---
Pt arrived from [facility] ER accompanied by Raphael Ren mobil staff. According to Raphael ren pt has been depressed and ran out into traffic stating he is suicidal. Pt is now saying he is suicidal with plan to overdose on his meds. Pt states his brother last month and he is feeling hopeless and doesnt want to live anymore. Pt is calm/cooperative sitting quietly in bed, belongings check completed.
--- NOTE | 2022-04-24 22:40 | NUR ---
Patient observed sleeping. Patient continues to have random episodes of coughing.
[2022-04-24] MEDS ORDERED: HALO5TAB PO (23:43)
[2022-04-24] MEDS ORDERED: BENZ-38 PO (23:46)
[2022-04-24] MEDS ORDERED: BENZ1TAB78 PO (23:49)
[2022-04-24] MEDS ORDERED: salt irrigation nasal spray 45 ML SPRAY NS PRN (23:50)
[2022-04-24] MEDS ORDERED: PRAZ2CAP2 PO (23:54)
--- NOTE | 2022-04-25 00:38 | NUR ---
Patient observed sleeping. Patient continues to cough in his sleep. Breaths are even and will continue to be monitored.
[2022-04-25] MEDS ORDERED: IBUP-1984 PO ×3 (02:01→22:12)
--- NOTE | 2022-04-25 02:39 | NUR ---
Patient observed sleeping in bed. Patient still coughing in sleep. WOODWORKING BENCH CARPENTER ordered musinex to start in the morning.
--- NOTE | 2022-04-25 04:31 | NUR ---
Patient currently sleeping quietly. Breaths even and coughing has lessen. Will continue to monitor.
--- NOTE | 2022-04-25 06:48 | NUR ---
Patient sleeping supine. No distress observed. Continue to monitor.
--- NOTE | 2022-04-25 08:22 | NUR ---
Patient eating breakfast. No distress observed. Continue to monitor.
[2022-04-25] MEDS: guaiFENesin ER 600mg tablet PO SCH ×2 (08:46→20:14)
--- NOTE | 2022-04-25 09:55 | NUR ---
[facility], Maria Luisa evaluating patient. No distress observed. Continue to monitor.
--- NOTE | 2022-04-25 11:47 | NUR ---
Patient ambulatory to BR, steady gait. No distress observed. Continue to monitor.
--- NOTE | 2022-04-25 12:13 | NUR ---
Patient eating lunch. No distress observed. Continue to monitor.
--- NOTE | 2022-04-25 14:19 | NUR ---
Patient sleeping. No distress observed. Continue to monitor.
--- NOTE | 2022-04-25 15:20 | NUR ---
RN gave patient a snack/sandwich and patient angry that snack had mustard. Cussing and upset. Continue to monitor.
--- NOTE | 2022-04-25 17:10 | NUR ---
Patient sleeping. No distress observed. Continue to monitor.
--- NOTE | 2022-04-25 18:30 | NUR ---
Patient asking to take a shower and HS medications. Offered him towels and wash cloths to clean up in the bathroom. Pending med req being completed.
[2022-04-25] MEDS ORDERED: benztropine 1mg tablet PO SCH (20:00)
[2022-04-25] MEDS: haloperidol 5mg tablet PO SCH (20:14)
[2022-04-25] MEDS: prazosin 1mg capsule PO SCH (20:15)
[2022-04-25] MEDS: benzonatate 100mg capsule PO SCH (20:15)
--- NOTE | 2022-04-25 21:00 | NUR ---
Patient aware he'll be admitted upstairs to [facility] and he continues to ask when he's going upstairs. HS meds taken. Eager to go to bed. Pleasant and cooperative. Will continue to monitor.
[2022-04-25] MEDS ORDERED: loperamide 2mg capsule PO PRN (22:05)
[2022-04-25] MEDS ORDERED: magnesium hydroxide 30ml (MOM) UD suspension PO PRN (22:05)
[2022-04-25] MEDS ORDERED: acetaminophen 325mg tablet PO PRN (22:05)
[2022-04-25 22:07] VITALS: BP 111/65
[2022-04-25] MEDS ORDERED: benztropine 1mg tablet PO ONE (22:25)
[2022-04-25] MEDS ORDERED: LORazepam 1 MG tablet PO ONE (22:25)
--- NOTE | 2022-04-25 23:00 | NUR ---
Patient chart and belongings acquired. Escorted [facility]
--- NOTE | 2022-04-25 23:02 | NUR ---
Nursing Admit Note: The patient is a 32 year old male admitted from the ER on a 5150 hold for being a danger to himself. One month ago his brother and he reports increasing depression with suicidal thoughts to overdose on his prescription medications. He has a history of prior suicide attempts. He is chronically homeless and has a long hx of methamphetamine abuse. Medical problems include: Cerebral Palsy, Asthma and seizures per the medical record but the patient denied hx of seizures on admit. On arrival the patient had difficulty articulating his words and reported that that was not usual for him and he believed it was a side effect to medications. The patient also had frequent long gazes to his right which he also said he believed was a side effect to medications. Dr. Moreno was made aware and orders were received.
[2022-04-26] MEDS ORDERED: ibuprofen 200mg tablet PO SCH
[2022-04-26 07:32] LABS: CHOL/HDL RATIO 2.8 (0.00-4.99); CHOLESTEROL 149 MG/DL (0-200); HDL CHOLESTEROL 53 MG/DL (35-60); LDL CHOLESTEROL 80 MG/DL (50-100); TRIGLYCERIDES 77 MG/DL (20-135)
[2022-04-26 07:35] VITALS: BP 112/62
[2022-04-26 07:39] LABS: HEMOGLOBIN A1C 5.3 % (4.5-6.2)
[2022-04-26] MEDS ORDERED: nicotine 21mg patch - 24 hr TD SCH (08:00)
[2022-04-26] MEDS: benztropine 1mg tablet PO SCH ×2 (08:15→20:50)
[2022-04-26] MEDS: haloperidol 5mg tablet PO SCH ×2 (08:15→20:36)
[2022-04-26] MEDS: ibuprofen 200mg tablet PO PRN (08:16)
[2022-04-26] MEDS: guaiFENesin ER 600mg tablet PO SCH ×2 (08:16→20:36)
[2022-04-26] MEDS: benzonatate 100mg capsule PO SCH ×3 (08:16→20:36)
[2022-04-26] MEDS: NICOTINE POLACRILEX 2 MG LOZENGE BC PRN (08:21)
[2022-04-26] MEDS ORDERED: pneumococcal 23-VAL P-sac vacc 25 mcg/0.5ml vial IMVAC ONE (10:00)
[2022-04-26] MEDS ORDERED: FLU VACC QS2022-23(6MOS UP)/PF 60 MCG/0.5 ML SYRINGE IMVAC ONE (10:00)
--- NOTE | 2022-04-26 12:54 | NUR ---
Nursing Progress Note: Problem : Pt. was admitted from the ER on a 5150 hold for being a danger to himself. One month ago his brother and he reports increasing depression with suicidal thoughts to overdose on his prescription medications. He has a history of prior suicide attempts. He is chronically homeless and has a long hx of methamphetamine abuse. Interventions :Introduced self and established rapport, maintained a safe and supportive environment, ensured contract for safety, provided clear and simple instructions, attempted to orient to reality, and maintained Q 15min safety checks. Response : Received pt. sleeping in bed at the beginning of the shift, he was awoken by staff to attended breakfast in the Group Room, and afterwards he retreated back to bed. 1:1 was completed at bedside, pt. presents as cooperative, fatigued, guarded, and isolative. He presents with a strong non-productive cough and V/S are WNL. Pt. continues to report S/I with a plan to overdose on on his medications. He also endorses V/HOLT of, "Colors." Pt. is guarded with conversation and responds to direct questions only with a minimal response. Pt. isolates in bed sleeping throughout much of the shift and states, "I just want to sleep today." Plan : Pt. continues to require interruption of current crisis, medication adjustments, and a safe and supportive environment.
--- NOTE | 2022-04-26 13:28 | NUR ---
Pt. refused scheduled influenza and pneumococcal vaccines this shift and reported that he would like to wait until tomorrow to receive these r/t fatigue. Will endorse to Noc shift.
[2022-04-26] MEDS ORDERED: LORazepam 1 MG tablet PO PRN ×2 (13:45)
[2022-04-26] MEDS ORDERED: traZODone 50mg tablet PO PRN (13:45)
[2022-04-26] MEDS: prazosin 1mg capsule PO SCH (20:36)
--- NOTE | 2022-04-27 04:01 | NUR ---
Nursing Progress Note: Problem: Pt. was admitted from the ER on a 5150 hold for being a danger to himself. One month ago his brother and he reports increasing depression with suicidal thoughts to overdose on his prescription medications. He has a history of prior suicide attempts. He is chronically homeless and has a long hx of methamphetamine abuse. Interventions: Introduced self and established rapport, maintained a safe and supportive environment, ensured contract for safety, provided clear and simple instructions, attempted to orient to reality, and maintained Q 15min safety checks. Response: Upon change of shift noted patient in a deep snoring sleep. Appears comfortable. Awoke patient after snack time to provide snack and HS administration. No PRNs given this shift. Patient appears tired, wears green scrubs and noted long hair disheveled. Appear to be very sad and avoiding eye contact. Isolated to room for most of day until awoke last night. Patient became tearful during conversation about missing his brother. Active listening provided and condolences given. Patient is guarded in response, reports feelings of constant suicidal thoughts and he reports that sleeping helps distract him from those thoughts. SI has not improved per patient states. Reassured patient and affirmed his worth and value. Physical touch on arm provided. No HI or AH. Reports seeing V/H as, colors constantly floating around. Non-productive moist cough noted. Medications continue. Made request to have vaccinations given on dayshift. Patient slept well. Will continue to monitor. Plan: Pt. continues to require interruption of current crisis, medication adjustments, and a safe and supportive environment.
[2022-04-27] MEDS: guaiFENesin ER 600mg tablet PO SCH ×2 (08:12→20:29)
[2022-04-27] MEDS: haloperidol 5mg tablet PO SCH ×2 (08:12→20:29)
[2022-04-27] MEDS: benztropine 1mg tablet PO SCH ×2 (08:12→20:30)
[2022-04-27] MEDS: benzonatate 100mg capsule PO SCH ×3 (08:12→20:29)
[2022-04-27] MEDS: NICOTINE POLACRILEX 2 MG LOZENGE BC PRN (08:13)
[2022-04-27 09:58] VITALS: BP 113/62
--- NOTE | 2022-04-27 14:37 | NUR ---
Nursing Progress Note: Problem : Pt. was admitted from the ER on a 5150 hold for being a danger to himself. One month ago his brother and he reports increasing depression with suicidal thoughts to overdose on his prescription medications. He has a history of prior suicide attempts. He is chronically homeless and has a long hx of methamphetamine abuse. Interventions : Maintained a safe and supportive environment, ensured contract for safety, provided clear and simple instructions, attempted to orient to reality, encouraged participation on the unit, provided education on hand washing r/t MRSA positive screening, and maintained Q 15min safety checks. Response : Received pt. sleeping in bed at the beginning of the shift, he was awoken by staff to attended breakfast in the Group Room, and afterwards he retreated back to bed as is his routine 1:1 was completed at bedside, pt. continues to present as fatigued and responds to direct questions only with a minimal response. He has a blunted affect and states, "I'm not doing good." Pt. continues to report S/I with a plan to overdose on on his medications along with V/HOLT of "Colors." Pt. again isolated in bed throughout the day sleeping, getting up only to attend meals. He refused ordered flu and pneumonia shots. Pt. had a positive MRSA screening upon admission and this card writer hand provided education on handwashing, pt. reported understanding. Pt. continues to have an intermittent non-productive cough at this time, will continue to monitor closely. Plan : Pt. continues to require interruption of current crisis, medication adjustments, and a safe and supportive environment.
[2022-04-27 19:00] VITALS: BP 108/61
[2022-04-27] MEDS: prazosin 1mg capsule PO SCH (20:29)
--- NOTE | 2022-04-28 02:27 | NUR ---
Nursing Progress Note: Problem : Pt. was admitted from the ER on a 5150 hold for being a danger to himself. One month ago his brother and he reports increasing depression with suicidal thoughts to overdose on his prescription medications. He has a history of prior suicide attempts. He is chronically homeless and has a long hx of methamphetamine abuse. Interventions : Maintained a safe and supportive environment, ensured contract for safety, provided clear and simple instructions, attempted to orient to reality, encouraged participation on the unit and independent performance of ADLs, provided education on hand washing r/t MRSA positive screening, and maintained Q 15min safety checks. Response : Received pt. ambulating briefly in the hallway at the beginning of the shift before retreating back to bed. Pt. continues to present with a constricted affect, and when questioned by this typewriter ribbon winder how he is feeling, states, "I'm about fifty, fifty." Pt. reports ongoing S/I with a plan to overdose on his medications along with V/HOLT of "Colors." It was noted by this typewriter ribbon winder that pt. appears malodorous and disheveled and he was provided encouragement to perform ADLs. Will endorse to AM shift and encourage pt. to shower. Pt. remained in bed throughout the shift, he continues to appear depressed and is not observed to be interacting with others. Plan : Pt. continues to require interruption of current crisis, medication adjustments, and a safe and supportive environment.
[2022-04-28 07:00] VITALS: BP 91/58
[2022-04-28] MEDS: haloperidol 5mg tablet PO SCH (08:01)
[2022-04-28] MEDS: guaiFENesin ER 600mg tablet PO SCH ×2 (08:01→20:33)
[2022-04-28] MEDS: benztropine 1mg tablet PO SCH ×2 (08:01→20:33)
[2022-04-28] MEDS: benzonatate 100mg capsule PO SCH ×3 (08:01→20:33)
[2022-04-28] MEDS ORDERED: FLUoxetine 10mg capsule PO ONE (15:35)
--- NOTE | 2022-04-28 16:21 | NUR ---
Nursing Progress Note: Problem : Pt. was admitted from the ER on a 5150 hold for being a danger to himself. One month ago his brother and he reports increasing depression with suicidal thoughts to overdose on his prescription medications. He has a history of prior suicide attempts. He is chronically homeless and has a long hx of methamphetamine abuse. Interventions : Maintained a safe and supportive environment, ensured contract for safety, provided clear and simple instructions, attempted to orient to reality, encouraged participation on the unit, provided education on hand washing r/t MRSA positive screening, and maintained Q 15min safety checks. Response : Received pt. sleeping in bed w/o distress at the beginning of the shift. Pt woke and was cooperative with vitals and returned to sleep. Pt woke for breakfast, took AM meds w/o issue and stated he was tired and wanted to go back to sleep. Pt cooperative with assessments and ate meals and snack with others in community room. Pt can not contract for safety and speaks about seeing colors still. Pt showered in early afternoon and returned to bed, stating he had a head ache, but did not want Tylenol and returned to napping. Pt states his HOLT is from coughing too much. Plan : Pt. continues to require interruption of current crisis, medication adjustments, and a safe and supportive environment.
[2022-04-28] MEDS: ibuprofen 200mg tablet PO PRN (17:02)
[2022-04-28 19:00] VITALS: BP 120/73
[2022-04-28] MEDS: QUEtiapine 25mg tablet PO SCH (20:32)
[2022-04-28] MEDS: prazosin 1mg capsule PO SCH (20:33)
[2022-04-28] MEDS: acetaminophen 325mg tablet PO PRN (20:34)
[2022-04-28] MEDS: NICOTINE POLACRILEX 2 MG LOZENGE BC PRN (20:42)
--- NOTE | 2022-04-29 04:31 | NUR ---
Nursing Progress Note: Problem : Pt. was admitted from the ER on a 5150 hold for being a danger to himself. One month ago his brother and he reports increasing depression with suicidal thoughts to overdose on his prescription medications. He has a history of prior suicide attempts. He is chronically homeless and has a long hx of methamphetamine abuse. Interventions : Maintained a safe and supportive environment, ensured contract for safety, provided clear and simple instructions, attempted to orient to reality, encouraged participation on the unit, provided education on hand washing r/t MRSA positive screening, and maintained Q 15min safety checks. Response:Upon change of shift noted walking the halls wearing green scrubs, well-groomed and good hygiene. Patient received shower today. Noted a sl brighter mood this shift although patient continues to have SI with a plan. Denies HI and AH. Continues to have VH of, different colors. Reports feeling like he keeps on looking to the right, Its freaking me out. Did not visualize patient doing this. He reports it began at 1500 last shift. RN performed AIM assessment and after discussing results with Ayala charge entry clerk, together decided the low number result didnt warrant calling the doctor. Is feeling paranoid about his symptoms. Reassured him and decided to continue to monitor patient s/sx and make MD aware on dayshift. No further complaints. HS medications given. PRNs Tylenol and Nicotine lozenge. Able to make needs known. Slept well this shift. Will continue to monitor. Plan : Pt. continues to require interruption of current crisis, medication adjustments, and a safe and supportive environment.
[2022-04-29 07:00] VITALS: BP 108/73
[2022-04-29] MEDS: benzonatate 100mg capsule PO SCH ×3 (07:48→20:04)
[2022-04-29] MEDS: haloperidol 5mg tablet PO SCH (07:49)
[2022-04-29] MEDS: benztropine 1mg tablet PO SCH ×2 (07:49→20:03)
[2022-04-29] MEDS: FLUoxetine 20mg capsule PO SCH (07:49)
[2022-04-29] MEDS: guaiFENesin ER 600mg tablet PO SCH ×2 (07:49→20:03)
--- NOTE | 2022-04-29 13:12 | NUR ---
[address] Li
--- NOTE | 2022-04-29 16:36 | NUR ---
Nursing Progress Note: Problem : Pt. was admitted from the ER on a 5150 hold for being a danger to himself. One month ago his brother and he reports increasing depression with suicidal thoughts to overdose on his prescription medications. He has a history of prior suicide attempts. He is chronically homeless and has a long hx of methamphetamine abuse. Interventions : Maintained a safe and supportive environment, ensured contract for safety, provided clear and simple instructions, attempted to orient to reality, encouraged participation on the unit, provided education on hand washing r/t MRSA positive screening, and maintained Q 15min safety checks. Response:Upon change of shift noted patient to be sleeping, mood is brighter than yesterday. Patient wearing green scrubs and fairly groomed with good hygiene. Reports no changes in thoughts. Reports SI and VH of different colors. No HI or AH noted. Able to make needs known. Reports that he didnt sleep well due to his cough. Minimal coughing noticed on this shift. Compliant with meds. PRN given. Kept to himself and napped on /off today. Will continue to monitor. Plan : Pt. continues to require interruption of current crisis, medication adjustments, and a safe and supportive environment.
[2022-04-29] MEDS: ibuprofen 200mg tablet PO PRN (17:55)
[2022-04-29] MEDS: NICOTINE POLACRILEX 2 MG LOZENGE BC PRN (17:55)
[2022-04-29 19:00] VITALS: BP 120/63
[2022-04-29] MEDS: prazosin 1mg capsule PO SCH (20:03)
[2022-04-29] MEDS: QUEtiapine 25mg tablet PO SCH (20:03)
--- NOTE | 2022-04-30 01:19 | NUR ---
Nursing Progress Note: Problem : Pt. was admitted from the ER on a 5150 hold for being a danger to himself. One month ago his brother and he reports increasing depression with suicidal thoughts to overdose on his prescription medications. He has a history of prior suicide attempts. He is chronically homeless and has a long hx of methamphetamine abuse. Interventions : Maintained a safe and supportive environment, ensured contract for safety, provided clear and simple instructions, attempted to orient to reality, encouraged participation on the unit, provided education on hand washing r/t MRSA positive screening, and maintained Q 15min safety checks. Response: Pt spent most of shift in his room. Came out for snack. Affect depressed. Pt says he has suffered from depression and SI "All my life." Per pt he has been more depressed since his brother . He has a plan to OD on his medications. Pt came to group room for snack. Was pleasant and cooperative with care, no difficulty going to sleep or staying asleep. Plan : Pt. continues to require interruption of current crisis, medication adjustments, and a safe and supportive environment.
[2022-04-30 07:00] VITALS: BP 119/65
[2022-04-30] MEDS: guaiFENesin ER 600mg tablet PO SCH ×2 (08:00→20:28)
[2022-04-30] MEDS: FLUoxetine 20mg capsule PO SCH (08:36)
[2022-04-30] MEDS: benzonatate 100mg capsule PO SCH ×3 (08:36→20:28)
[2022-04-30] MEDS: benztropine 1mg tablet PO SCH ×2 (08:36→20:28)
[2022-04-30] MEDS: haloperidol 5mg tablet PO SCH (08:36)
--- NOTE | 2022-04-30 14:26 | NUR ---
Initial: Pt admit for depression with SI. Currently on a regular diet and eating well, documented with mostly 100% PO intake of meals and participating in snacks per java web developer. Overall pt meeting estimated nutrient needs. LBM 04/30. No edema and skin intact per EMR. No nutrition intervention implemented at this time. Will continue to follow. Recommendations: 1) Continue regular diet 2) Bowel care PRN 3) Weekly scaled weights Addendum: 04/30/22 at [address] Amended: Links added.
--- NOTE | 2022-04-30 17:45 | NUR ---
Nursing Progress Note: Fernando Problem : Pt. was admitted from the ER on a 5150 hold for being a danger to himself. Patients brother recently and he reports increasing depression with suicidal thoughts to overdose on his prescription medications. He has a history of prior suicide attempts. He is chronically homeless and has a long hx of methamphetamine abuse. Interventions : Established rapport, maintained a safe and supportive environment, encouraged participation on the unit, ensured contract for safety, medication administration/education/monitoring, provided clear and simple instructions, attempted to orient to reality, provided education on hand washing r/t MRSA positive screening, and maintained Q15 min safety checks. Response : Patient received sleeping in his room at change of shift. He awoke and joined in the community room with peers for breakfast. Patient was receptive to scheduled medication and 1:1 assessment. He retreated back to his room after breakfast. Patient endorses SI with a plan to overdose on his medications. Patient also endorsing that he didnt sleep well last night and just wants to . +VH of different colors, which he has always dealt with. Patient continues to present with a cough throughout the shift. He napped the majority of this shift and was noted to be fatigued. Pt declined to participate in group therapy this shift despite encouragement. Patient endorsing that he doesnt ever go to those. He was isolative to his room the majority of the shift aside from snack and meal times. Plan : Pt. continues to require interruption of current crisis, medication adjustments, and a safe and supportive environment.
[2022-04-30] MEDS: NICOTINE POLACRILEX 2 MG LOZENGE BC PRN (18:45)
[2022-04-30] MEDS: acetaminophen 325mg tablet PO PRN (18:46)
[2022-04-30 19:45] VITALS: BP 110/58
[2022-04-30] MEDS: QUEtiapine 25mg tablet PO SCH (20:28)
[2022-04-30] MEDS: prazosin 1mg capsule PO SCH (20:28)
--- NOTE | 2022-05-01 03:43 | NUR ---
Nursing Progress Note: Problem: Pt. was admitted from the ER on a 5150 hold for being a danger to himself. One month ago his brother and he reports increasing depression with suicidal thoughts to overdose on his prescription medications. He has a history of prior suicide attempts. He is chronically homeless and has a long hx of methamphetamine abuse. Interventions: Maintained a safe and supportive environment, ensured contract for safety, provided clear and simple instructions, attempted to orient to reality, encouraged participation on the unit, provided education on hand washing r/t MRSA positive screening, and maintained Q 15min safety checks. Response: Upon change of shift noted walking the halls wearing green scrubs, fairly-groomed and fair hygiene. Got him a brush and noted him brush his hair. Noted to be pleasant, calm and cooperative. Noted in a much brighter mood this shift although incongruent with his reports of continual SI with a plan. Will laugh and joke with this nurse then becomes when topic of his mood comes up reports, "As soon as I get out of here I'm going to do it." Therapeutic conversation and support provided. Denies HI and AH however visualizes,"different colors. Reports he's seen the different colors since he was 6. R No further complaints. HS medications given. PRNs Tylenol and Nicotine lozenge. Reports, "I don't like me on meds." RN inquired further about statement and refused to go into detail stating, "I'm not doing it on purpose." Able to make needs known. Slept well this shift. Will continue to monitor. Plan: Pt. continues to require interruption of current crisis, medication adjustments, and a safe and supportive environment.
[2022-05-01 07:00] VITALS: BP 107/66
[2022-05-01] MEDS: FLUoxetine 20mg capsule PO SCH (08:18)
[2022-05-01] MEDS: benzonatate 100mg capsule PO SCH ×3 (08:18→20:25)
[2022-05-01] MEDS: haloperidol 5mg tablet PO SCH (08:18)
[2022-05-01] MEDS: benztropine 1mg tablet PO SCH ×2 (08:18→20:24)
[2022-05-01] MEDS: guaiFENesin ER 600mg tablet PO SCH ×2 (08:18→20:25)
[2022-05-01] MEDS: NICOTINE POLACRILEX 2 MG LOZENGE BC PRN ×2 (08:23→18:27)
[2022-05-01] MEDS: ondansetron 4mg rapidly disintigrating tab PO PRN ×2 (12:40→17:55)
--- NOTE | 2022-05-01 17:58 | NUR ---
Nursing Progress Note: Fernando Problem : Pt. was admitted from the ER on a 5150 hold for being a danger to himself. One month ago his brother and he reports increasing depression with suicidal thoughts to overdose on his prescription medications. He has a history of prior suicide attempts. He is chronically homeless and has a long hx of methamphetamine abuse. Interventions : Maintained a safe and supportive environment, ensured contract for safety, provided clear and simple instructions, attempted to orient to reality, encouraged participation on the unit, provided education on hand washing r/t MRSA positive screening, and maintained Q 15min safety checks. Response : Received pt. sleeping in bed w/o distress at the beginning of the shift. Pt woke and was cooperative with vitals and returned to sleep. Pt woke for breakfast, took AM meds w/o issue. Pt vomited in mid-morning and returned to bed and fell asleep. Pt given Zofran before lunch, but Pt did not eat much. Pt rested in bed most of the day and reported not feeling nausea in afternoon. Nausea returned at dinner along with his appetite and Zofran given again. Pt overall pleasant and personable along with being depressed and sad at times. Pt continues to endorse Si with plans to OD. Plan : Pt. continues to require interruption of current crisis, medication adjustments, and a safe and supportive environment.
[2022-05-01 19:00] VITALS: BP 87/49
[2022-05-01] MEDS: prazosin 1mg capsule PO SCH (20:24)
[2022-05-01] MEDS: QUEtiapine 25mg tablet PO SCH (20:25)
[2022-05-01 23:16] VITALS: BP 98/62
--- NOTE | 2022-05-02 05:04 | NUR ---
Nursing Progress Note: Problem: Pt. was admitted from the ER on a 5150 hold for being a danger to himself. One month ago his brother and he reports increasing depression with suicidal thoughts to overdose on his prescription medications. He has a history of prior suicide attempts. He is chronically homeless and has a long hx of methamphetamine abuse. Interventions: Maintained a safe and supportive environment, ensured contract for safety, provided clear and simple instructions, attempted to orient to reality, encouraged participation on the unit, provided education on hand washing r/t MRSA positive screening, and maintained Q 15min safety checks. Response: Received Pt in community room eating dinner. Pt remains in bright mood and talking with staff despite feeling ill. Pt had vomited after dinner but was able to keep down crackers and HS meds. Pt talked about having all his stuff stolen and waking up in snow. Pt also drank broth and watched some TV before going to bed where he remains sleeping w/o distress. Pt talking about future although still endorsing SI. Plan: Pt. continues to require interruption of current crisis, medication adjustments, and a safe and supportive environment.
[2022-05-02 07:00] VITALS: BP 100/57
[2022-05-02] MEDS: haloperidol 5mg tablet PO SCH (08:06)
[2022-05-02] MEDS: benztropine 1mg tablet PO SCH ×2 (08:06→20:39)
[2022-05-02] MEDS: FLUoxetine 20mg capsule PO SCH (08:06)
[2022-05-02] MEDS: benzonatate 100mg capsule PO SCH ×3 (08:07→20:42)
[2022-05-02] MEDS: guaiFENesin ER 600mg tablet PO SCH ×2 (08:07→20:38)
--- NOTE | 2022-05-02 17:23 | NUR ---
Nursing Progress Note: Problem : Pt. was admitted from the ER on a 5150 hold for being a danger to himself. Patients brother recently and he reports increasing depression with suicidal thoughts to overdose on his prescription medications. He has a history of prior suicide attempts. He is chronically homeless and has a long hx of methamphetamine abuse. Interventions : 1:1 assessment, establishment of rapport, therapeutic conversation, active listening, ensured contract for safety, medication administration/education/monitoring, education on hand washing r/t MRSA positive screening, provided distraction, positive reinforcement, and maintained Q15 minute safety checks. Response : Pt was up for breakfast and cooperative with his medications. Pt napped after breakfast and intermittently throughout the day. Pt has an intermittent cough which he reports is productive with small amount yellow sputum. Pt's lungs are clear, his O2 sats were 99% on room air. Pt continues on Mucinex and Tessalon pearls. Pt endorses depression with SI, his plan is to OD on medications. Pt denied HI/AH. Pt reports ongoing VH; "I see 'em all the time...colored splotches." Pt's Seroquel was increased to 400 mg HS. Plan : Pt. continues to require interruption of current crisis, medication adjustments, and a safe and supportive environment.
[2022-05-02] MEDS: NICOTINE POLACRILEX 2 MG LOZENGE BC PRN ×2 (17:56→20:39)
[2022-05-02 19:00] VITALS: BP 108/54
--- NOTE | 2022-05-02 19:49 | NUR ---
Nursing Progress Note: Problem : Pt. was admitted from the ER on a 5150 hold for being a danger to himself. Patients brother recently and he reports increasing depression with suicidal thoughts to overdose on his prescription medications. He has a history of prior suicide attempts. He is chronically homeless and has a long hx of methamphetamine abuse. Interventions : 1:1 assessment, establishment of rapport, therapeutic conversation, active listening, ensured contract for safety, medication administration/education/monitoring, education on hand washing r/t MRSA positive screening, provided distraction, positive reinforcement, and maintained Q15 minute safety checks. Response : This patient is ambulatory and out and about on the unit following shift change. The patient is cooperative with this business writer. 1:1 Interview in hallway. The patient has been pacing. He rests in his room on occasion. He looks disheveled. Patient tells this business writer, "I don't want to be alive, I just want to kill myself! Patient states his plan is to "[place] or overdose." The patient denies verbal hallucinations, He states there are "lots of splotches in my vision." He denies command hallucinations. The patient is cooperative. He would like additional nicotine lozenge at shift change. Plan : Pt. continues to require interruption of current crisis, medication adjustments, and a safe and supportive environment.
[2022-05-02] MEDS: quetiapine 100mg tablet PO SCH (20:38)
[2022-05-02] MEDS: prazosin 1mg capsule PO SCH (20:38)
[2022-05-03 07:00] VITALS: BP 97/57
[2022-05-03] MEDS: haloperidol 5mg tablet PO SCH (07:57)
[2022-05-03] MEDS: FLUoxetine 20mg capsule PO SCH (07:57)
[2022-05-03] MEDS: guaiFENesin ER 600mg tablet PO SCH ×2 (07:58→20:02)
[2022-05-03] MEDS: benztropine 1mg tablet PO SCH ×2 (07:58→20:02)
[2022-05-03] MEDS: benzonatate 100mg capsule PO SCH ×3 (07:58→20:02)
[2022-05-03] MEDS: NICOTINE POLACRILEX 2 MG LOZENGE BC PRN ×3 (08:12→17:56)
[2022-05-03] MEDS: QUEtiapine 25mg tablet PO PRN ×2 (11:28→20:47)
--- NOTE | 2022-05-03 15:51 | NUR ---
Nursing Progress Note: Problem : Pt. was admitted from the ER on a 5150 hold for being a danger to himself. Patients brother recently and he reports increasing depression with suicidal thoughts to overdose on his prescription medications. He has a history of prior suicide attempts. He is chronically homeless and has a long hx of methamphetamine abuse. Interventions : 1:1 assessment, establishment of rapport, therapeutic conversation, active listening, ensured contract for safety, medication administration/education/monitoring, education on hand washing r/t MRSA positive screening, provided distraction, positive reinforcement, and maintained Q15 minute safety checks. Response : Pt came to the dining room for breakfast, pt took his meds. Pt reports, "I still want to kill myself." Pt contracts for safety here. Pt c/o increased anxiety probably related to his intrusive new roommate. He was given PRN Seroquel 100 mg at 1128 with good effect. No unsafe behaviors noted. Plan : Pt. continues to require interruption of current crisis, medication adjustments, and a safe and supportive environment.
[2022-05-03 19:00] VITALS: BP 104/51
[2022-05-03] MEDS: quetiapine 100mg tablet PO SCH (20:02)
[2022-05-03] MEDS: prazosin 1mg capsule PO SCH (20:02)
--- NOTE | 2022-05-04 03:17 | NUR ---
Nursing Progress Note: Fernando Problem : Pt. was admitted from the ER on a 5150 hold for being a danger to himself. Patients brother recently and he reports increasing depression with suicidal thoughts to overdose on his prescription medications. He has a history of prior suicide attempts. He is chronically homeless and has a long hx of methamphetamine abuse. Interventions : 1:1 assessment, establishment of rapport, therapeutic conversation, active listening, ensured contract for safety, medication administration/education/monitoring, education on hand washing r/t MRSA positive screening, provided distraction, positive reinforcement, and maintained Q15 minute safety checks. Response : Pt pacing and then was observed lying on his bed resting. Pt cooperative and states he has SI with a grand finale to take medication or walk into traffic. Pt contracts for safety. He denies AH but states he sees color splashes. Pt requested anxiety medications with an anxiety level of 7/10. HS medications given along with PRN Seroquel for anxiety; given with good effect. Pt made odd requests of C-clamp crutches and wanting to get tested for certain HPV cancer. Pt is currently sleeping, will continue to monitor. Plan : Pt. continues to require interruption of current crisis, medication adjustments, and a safe and supportive environment.
[2022-05-04 07:00] VITALS: BP 80/41
[2022-05-04] MEDS: FLUoxetine 20mg capsule PO SCH (07:29)
[2022-05-04] MEDS: benzonatate 100mg capsule PO SCH ×3 (07:29→20:02)
[2022-05-04] MEDS: guaiFENesin ER 600mg tablet PO SCH ×2 (07:29→20:02)
[2022-05-04] MEDS: haloperidol 5mg tablet PO SCH (07:29)
[2022-05-04] MEDS: benztropine 1mg tablet PO SCH ×2 (07:29→20:02)
[2022-05-04] MEDS: NICOTINE POLACRILEX 2 MG LOZENGE BC PRN ×3 (13:15→19:30)
--- NOTE | 2022-05-04 14:12 | NUR ---
Nursing Progress Note: Problem : Pt. was admitted from the ER on a 5150 hold for being a danger to himself. Patients brother recently and he reports increasing depression with suicidal thoughts to overdose on his prescription medications. He has a history of prior suicide attempts. He is chronically homeless and has a long hx of methamphetamine abuse. Interventions : 1:1 assessment, therapeutic conversation, active listening, ensured contract for safety, medication administration/education/monitoring, education on hand washing r/t MRSA positive screening, encouragement to come out of room and participate in unit activities, provided distraction, positive reinforcement, and maintained Q15 minute safety checks. Response : Pt gets up for meals, pt is cooperative with medications, Pt continues to endorse depression with SI, plan to OD on meds or jump [place] the [place]. Pt is mostly isolative to self and spends a lot of time napping. Asked pt if he could think of anything that would help him feel better. Pt initially said "no." However when further encouraged to try to think of something, he replied with a little smile, "sex" then walked back to his room. Plan : Pt. continues to require interruption of current crisis, medication adjustments, and a safe and supportive environment.
[2022-05-04] MEDS: acetaminophen 325mg tablet PO PRN (17:43)
[2022-05-04] MEDS: QUEtiapine 25mg tablet PO PRN (18:29)
[2022-05-04 19:00] VITALS: BP 105/62
[2022-05-04] MEDS: quetiapine 100mg tablet PO SCH (20:02)
[2022-05-04] MEDS: prazosin 1mg capsule PO SCH (20:02)
--- NOTE | 2022-05-04 23:22 | NUR ---
Nursing Progress Note: Fernando Problem : Pt. was admitted from the ER on a 5150 hold for being a danger to himself. Patients brother recently and he reports increasing depression with suicidal thoughts to overdose on his prescription medications. He has a history of prior suicide attempts. He is chronically homeless and has a long hx of methamphetamine abuse. Interventions : 1:1 assessment, therapeutic conversation, active listening, ensured contract for safety, medication administration/education/monitoring, education on hand washing r/t MRSA positive screening, encouragement to come out of room and participate in unit activities, provided distraction, positive reinforcement, and maintained Q15 minute safety checks. Response : Pt up pacing the unit. HE states he is doing the same as yesterday. Reports SI with a plan to OD on pills. He requested PRN Seroquel for 7/10 anxiety, given with good effect. He participated in snacks and took all HS medications without issue. Pt currently sleeping without difficulty, will continue to monitor. Plan : Pt. continues to require interruption of current crisis, medication adjustments, and a safe and supportive environment.
[2022-05-05 07:14] VITALS: BP 89/48
[2022-05-05] MEDS: guaiFENesin ER 600mg tablet PO SCH ×2 (07:42→20:03)
[2022-05-05] MEDS: FLUoxetine 20mg capsule PO SCH (07:42)
[2022-05-05] MEDS: benztropine 1mg tablet PO SCH ×2 (07:42→20:03)
[2022-05-05] MEDS: benzonatate 100mg capsule PO SCH ×3 (07:42→20:04)
[2022-05-05] MEDS: haloperidol 5mg tablet PO SCH (07:42)
[2022-05-05] MEDS: NICOTINE POLACRILEX 2 MG LOZENGE BC PRN ×2 (15:18→19:42)
[2022-05-05] MEDS: QUEtiapine 25mg tablet PO PRN (16:37)
--- NOTE | 2022-05-05 16:41 | NUR ---
Nursing Progress Note: Problem: Pt. was admitted from the ER on a 5150 hold for being a danger to himself. Patients brother recently and he reports increasing depression with suicidal thoughts to overdose on his prescription medications. He has a history of prior suicide attempts. He is chronically homeless and has a long hx of methamphetamine abuse. Interventions: Provide medication administration & medication management; Maintained a safe & supportive environment; Clear & simple instructions; Direction & encouragement regarding performance of ADLs; monitored behaviors & maintained clear boundaries; Patient physical assessment & 1:1 patient interview; Therapeutic conversation & active listening; Patient education & monitoring. Response: Received patient who was sleeping in bed. Patient was woke up at approximately 0745 to take his morning medication. Breakfast arrived shortly after and he ambulated to the Community Room for breakfast. Patient is pleasant and cooperative. Patient assessment and 1:1 interview completed. Patient reports he is continuing to feel suicidal but did not report a plan. Patient returned to bed after breakfast and slept until snack time at 1100 then returned to bed until lunch time at 1300. Patient participated in snack time at 1500 and again slept from snack time to dinner. Patient c/o anxiety at 1630 and received Seroquel 100mg po at 1640. Plan: Pt. continues to require interruption of current crisis, medication adjustments, and a safe and supportive environment.
[2022-05-05 19:00] VITALS: BP 105/72
[2022-05-05] MEDS: quetiapine 100mg tablet PO SCH (20:04)
[2022-05-05] MEDS: prazosin 1mg capsule PO SCH (20:04)
--- NOTE | 2022-05-06 00:49 | NUR ---
Nursing Progress Note: Problem: Pt. was admitted from the ER on a 5150 hold for being a danger to himself. Patients brother recently and he reports increasing depression with suicidal thoughts to overdose on his prescription medications. He has a history of prior suicide attempts. He is chronically homeless and has a long hx of methamphetamine abuse. Interventions: Provide medication administration & medication management; Maintained a safe & supportive environment; Clear & simple instructions; Direction & encouragement regarding performance of ADLs; monitored behaviors & maintained clear boundaries; Patient physical assessment & 1:1 patient interview; Therapeutic conversation & active listening; Patient education & monitoring. Response: received pt. sitting in the recreation room at change of shift. Pt. observed watching TV and socializing with peers. Observed walking the unit and talking on the phone. Attended evening snack in the community room and socializing with room mate. States "he's doing better than he was yesterday". Pt. continues to feel suicidal with a plan to overdose on his medications. When asked about hallucinations pt. states "he sees color blotches". PRN nicotine lozenge provided. Compliant with medications. Observed and appears to be sleeping without difficulty. Plan: Pt. continues to require interruption of current crisis, medication adjustments, and a safe and supportive environment.
[2022-05-06] MEDS: NICOTINE POLACRILEX 2 MG LOZENGE BC PRN ×3 (06:59→18:10)
[2022-05-06 07:00] VITALS: BP 98/47
[2022-05-06] MEDS: ibuprofen 200mg tablet PO PRN (07:12)
[2022-05-06] MEDS: QUEtiapine 25mg tablet PO PRN ×2 (07:47→18:54)
[2022-05-06] MEDS: haloperidol 5mg tablet PO SCH (07:47)
[2022-05-06] MEDS: benztropine 1mg tablet PO SCH ×2 (07:47→20:09)
[2022-05-06] MEDS: FLUoxetine 20mg capsule PO SCH (07:47)
[2022-05-06] MEDS: guaiFENesin ER 600mg tablet PO SCH ×2 (07:47→20:09)
[2022-05-06] MEDS: benzonatate 100mg capsule PO SCH ×3 (07:47→20:09)
--- NOTE | 2022-05-06 11:35 | NUR ---
DISCHARGE PLANNING Met with Fernando to discuss discharge plan. He reported he would like to go to [facility] or he could go to the [facility]. Informed him of the process to access rehab. Provided him with the phone # to [facility] and encouraged him to call. RUSTY Li
[2022-05-06] MEDS: acetaminophen 325mg tablet PO PRN ×2 (12:34→18:54)
--- NOTE | 2022-05-06 17:10 | NUR ---
Nursing Progress Note: Problem: Pt. was admitted from the ER on a 5150 hold for being a danger to himself. Patients brother recently and he reports increasing depression with suicidal thoughts to overdose on his prescription medications. He has a history of prior suicide attempts. He is chronically homeless and has a long hx of methamphetamine abuse. Interventions: Provide medication administration & medication management; Maintained a safe & supportive environment; Clear & simple instructions; Direction & encouragement regarding performance of ADLs; monitored behaviors & maintained clear boundaries; Patient physical assessment & 1:1 patient interview; Therapeutic conversation & active listening; Patient education & monitoring. Response: Received patient who woke up at approximately 0645 and requested hot chocolate and returned to the dining room. In the next 30 minutes the patient requested a Nicotine Lozenge, Seroquel & Motrin. Patient received relief from the Motrin as well as decreased anxiety with the Seroquel. Patient visited with his roommate in the Community Room before breakfast. Patient assessment and interview completed and patient reported he continues to feel suicidal with a plan to overdose. The patient reports I feel this every single day. Patient reports still dealing with Heavy sadness losing my brother. Patient had a visit from Milagros from Physical Therapy who worked with him trying different types of forearm crutches. Patient chose a specific type of forearm crutch that worked better for him while ambulating in the hallway. Patient rested in bed this afternoon. Plan: Pt. continues to require interruption of current crisis, medication adjustments, and a safe and supportive environment.
[2022-05-06 19:55] VITALS: BP 100/54
[2022-05-06] MEDS: prazosin 1mg capsule PO SCH (20:09)
[2022-05-06] MEDS: quetiapine 100mg tablet PO SCH (20:10)
--- NOTE | 2022-05-06 23:17 | NUR ---
Nursing Progress Note: Problem: Pt. was admitted from the ER on a 5150 hold for being a danger to himself. Patients brother recently and he reports increasing depression with suicidal thoughts to overdose on his prescription medications. He has a history of prior suicide attempts. He is chronically homeless and has a long hx of methamphetamine abuse. Interventions: Provide medication administration & medication management; Maintained a safe & supportive environment; Clear & simple instructions; Direction & encouragement regarding performance of ADLs; monitored behaviors & maintained clear boundaries; Patient physical assessment & 1:1 patient interview; Therapeutic conversation & active listening; Patient education & monitoring. Response: Pt was in the hallway at change of shift, c/o back pain and requested tylenol. Pt also c/o anxiety. Pt was given prn tyenol and seroquel. Pt reports passive s/i during the day. Pt states he is "ok" at present. Pt spent time talking with his roommate. Pt had snacks and took HS meds before going to bed. Plan: Pt. continues to require interruption of current crisis, medication adjustments, and a safe and supportive environment.
[2022-05-07 07:00] VITALS: BP 82/42
[2022-05-07] MEDS: guaiFENesin ER 600mg tablet PO SCH ×2 (07:25→20:04)
[2022-05-07] MEDS: haloperidol 5mg tablet PO SCH (07:25)
[2022-05-07] MEDS: benztropine 1mg tablet PO SCH ×2 (07:25→20:04)
[2022-05-07] MEDS: FLUoxetine 20mg capsule PO SCH ×2 (07:25→08:00)
[2022-05-07] MEDS: benzonatate 100mg capsule PO SCH ×3 (07:26→20:04)
[2022-05-07] MEDS: NICOTINE POLACRILEX 2 MG LOZENGE BC PRN ×4 (07:41→18:17)
[2022-05-07] MEDS: acetaminophen 325mg tablet PO PRN (09:19)
--- NOTE | 2022-05-07 15:26 | NUR ---
Nursing Progress Note: Problem: Pt. was admitted from the ER on a 5150 hold for being a danger to himself. Patients brother recently and he reports increasing depression with suicidal thoughts to overdose on his prescription medications. He has a history of prior suicide attempts. He is chronically homeless and has a long hx of methamphetamine abuse. Interventions: Provide medication administration & medication management; Maintained a safe & supportive environment; Clear & simple instructions; Direction & encouragement regarding performance of ADLs; monitored behaviors & maintained clear boundaries; Patient physical assessment & 1:1 patient interview; Therapeutic conversation & active listening; Patient education & monitoring. Response: Patient up at change of shift. Met with RN at the bedside for 1:1 assessment. Reports that he didnt sleep well last night because hes having nightmares. He is requesting Trazodone instead of Seroquel for sleep; notified Dr. Hinton. He states his mood has improved and he feels ready to go home, But I better stay since theyre changing my medication. Prozac is being cross tapered to another antidepressant. When asked about S/I, he states Not really. Pt fairly social on the unit throughout the shift. Requested Tylenol for chronic back pain; effective. Plan: Dr. Hinton is cross tapering his antidepressant. Mood is improving, but patient is at risk of rehospitalization if he discharges at this time.
[2022-05-07] MEDS ORDERED: venlafaxine XR 37.5mg cap (Q24H) PO ONE (16:15)
[2022-05-07] MEDS: ibuprofen 200mg tablet PO PRN (16:52)
[2022-05-07] MEDS: mag hydrox/Alum hydrox/simeth 30ml oral suspension PO PRN (17:24)
[2022-05-07 19:48] VITALS: BP 102/55
[2022-05-07] MEDS: quetiapine 100mg tablet PO SCH (20:04)
[2022-05-07] MEDS: traZODone 50mg tablet PO SCH (20:04)
[2022-05-07] MEDS: prazosin 1mg capsule PO SCH (20:04)
--- NOTE | 2022-05-07 22:24 | NUR ---
Nursing Progress Note: Problem: Pt. was admitted from the ER on a 5150 hold for being a danger to himself. Patients brother recently and he reports increasing depression with suicidal thoughts to overdose on his prescription medications. He has a history of prior suicide attempts. He is chronically homeless and has a long hx of methamphetamine abuse. Interventions: Provide medication administration & medication management; Maintained a safe & supportive environment; Clear & simple instructions; Direction & encouragement regarding performance of ADLs; monitored behaviors & maintained clear boundaries; Patient physical assessment & 1:1 patient interview; Therapeutic conversation & active listening; Patient education & monitoring. Response: Pt was walking in the koroma at change of shift and asked for seroquel. Explained to patient the medication is discontinued, so then he asked for tylenol. "I just need something." Asked patient if he has tried using coping skills and if he could try and wait about an hour for his medication? Pt states "I guess so." Pt went in and socialized with peers and was noted to be laughing and pleasantly interacting. Pt showered and took HS meds. Pt had a snack and went to bed. Plan: Dr. Hinton is cross tapering his antidepressant. Mood is improving, but patient is at risk of rehospitalization if he discharges at this time. Addendum: 05/07/22 at 2236 by Shalonda García RN Discussed hand washing due to pts positive mrsa reading. Pt states he understands. During assessment patient reports mild anxiety, denies s/i.
[2022-05-08 07:26] VITALS: BP 105/64
[2022-05-08] MEDS: haloperidol 5mg tablet PO SCH (07:48)
[2022-05-08] MEDS: venlafaxine XR 75mg capsule (Q24H) PO SCH (07:49)
[2022-05-08] MEDS: FLUoxetine 20mg capsule PO SCH (07:49)
[2022-05-08] MEDS: benztropine 1mg tablet PO SCH ×2 (07:49→19:54)
[2022-05-08] MEDS: guaiFENesin ER 600mg tablet PO SCH ×2 (07:53→19:54)
[2022-05-08] MEDS: benzonatate 100mg capsule PO SCH ×3 (07:53→19:54)
--- NOTE | 2022-05-08 10:43 | NUR ---
CASE MANAGEMENT This [employer] and Pt. called [facility] to get him started finding a rehab. Pt. left messages with [facility] in [facility] and [facility] in [facility]. Awaiting call backs from both places to do an intake and find out if there are available beds. ASHLEY ColeW
[2022-05-08] MEDS: NICOTINE POLACRILEX 2 MG LOZENGE BC PRN ×4 (11:18→20:33)
[2022-05-08] MEDS: acetaminophen 325mg tablet PO PRN (16:45)
--- NOTE | 2022-05-08 17:03 | NUR ---
Nursing Progress Note: Fernando Problem: Pt. was admitted from the ER on a 5150 hold for being a danger to himself. Patients brother recently and he reports increasing depression with suicidal thoughts to overdose on his prescription medications. He has a history of prior suicide attempts. He is chronically homeless and has a long Hx of methamphetamine abuse. Interventions: Medication administration, 1:1 MH assessment, maintained a safe and supportive environment, provided clear and simple instructions, provided encouragement regarding performance of ADLs, monitored behaviors and maintained clear boundaries, maintained Q15 minute safety checks. Response: Pt. received awake and in the koroma. He denies SI, HI, AH, and endorses VH stating I see splotches of colors, I always have Pt. reports feeling stressed, when I think of my brother but states he feels an improvement while being here. He reports his DC plan is to get into [place] or go back to the streets. Pt. is cooperative, and took his medications without hesitation, but denies/refused needing his Mucinex and tesslaon neftali. Pt. spent time watching tv and socializing with cohorts. He ate all meals in the community room, interacts appropriately. Pt. presents with fair hygiene, hair is un brushed, and is wearing unit scrubs. Pt. requested Tylenol PRN for HOLT and several nicotine lozenges this shift. Plan: Dr. Hinton is cross tapering his antidepressant. Mood is improving, but patient is at risk of re hospitalization if he discharges at this time.
[2022-05-08 19:00] VITALS: BP 114/79
[2022-05-08] MEDS: quetiapine 100mg tablet PO SCH (19:54)
[2022-05-08] MEDS: prazosin 1mg capsule PO SCH (19:54)
[2022-05-08] MEDS: traZODone 50mg tablet PO SCH (19:55)
--- NOTE | 2022-05-09 03:43 | NUR ---
Nursing Progress Note: Fernando Problem: Pt. was admitted from the ER on a 5150 hold for being a danger to himself. Patients brother recently and he reports increasing depression with suicidal thoughts to overdose on his prescription medications. He has a history of prior suicide attempts. He is chronically homeless and has a long Hx of methamphetamine abuse. Interventions: Medication administration, 1:1 MH assessment, maintained a safe and supportive environment, provided clear and simple instructions, provided encouragement regarding performance of ADLs, monitored behaviors and maintained clear boundaries, maintained Q15 minute safety checks. Response: Patient is pleasant and cooperative with care; compliant with medication. PRN Nicotine lozenge provided. No I, HI, A/VH reported this shift; no apparent delusions expressed. Patient is social with peers and participated in HS snack prior to bed; observed sleeping and does not appear to be having difficulty. Plan: Dr. Hinton is cross tapering his antidepressant. Mood is improving, but patient is at risk of re hospitalization if he discharges at this time.
[2022-05-09 07:19] VITALS: BP 96/56
[2022-05-09] MEDS: haloperidol 5mg tablet PO SCH (07:26)
[2022-05-09] MEDS: venlafaxine XR 75mg capsule (Q24H) PO SCH (07:26)
[2022-05-09] MEDS: benztropine 1mg tablet PO SCH ×2 (07:27→20:30)
[2022-05-09] MEDS: guaiFENesin ER 600mg tablet PO SCH ×2 (07:28→20:30)
[2022-05-09] MEDS: benzonatate 100mg capsule PO SCH ×3 (07:29→20:30)
--- NOTE | 2022-05-09 07:34 | NUR ---
F/u 05/09: Pt mostly 100% PO intake of meals and participating in snacks per EMR meeting estimated nutrient needs. LBM 05/08. No nutrition intervention implemented at this time. Will continue to follow. Recommendations: 1) Continue regular diet 2) Bowel care PRN 3) Weekly scaled weights Addendum: 05/09/22 at [address] Amended: Links added.
[2022-05-09] MEDS: NICOTINE POLACRILEX 2 MG LOZENGE BC PRN ×5 (08:44→20:43)
--- NOTE | 2022-05-09 09:04 | NUR ---
CASE MANAGEMENT [facility] to interview Pt. today at 2PM. They do not have bed available at this moment but will interview should a bed open up. Eleni Dominguez LCSW
[2022-05-09] MEDS: acetaminophen 325mg tablet PO PRN (14:48)
--- NOTE | 2022-05-09 15:00 | NUR ---
CASE MANAGEMENT [facility] does not have an available bed at this time. Spoke to Pt. about this. He reported he heard back from [facility] and they do not have a bed for at least 2 months. He is on the waiting list. He reported that he is fine with discharging to the [facility] if nothing else works on for him. Eleni Dominguez, NATALEE
--- NOTE | 2022-05-09 16:25 | NUR ---
Nursing Progress Note: Fernando Problem: Pt. was admitted from the ER on a 5150 hold for being a danger to himself. Patients brother recently and he reports increasing depression with suicidal thoughts to overdose on his prescription medications. He has a history of prior suicide attempts. He is chronically homeless and has a long Hx of methamphetamine abuse. Interventions: Medication administration, 1:1 MH assessment, maintained a safe and supportive environment, provided clear and simple instructions, provided encouragement regarding performance of ADLs, monitored behaviors and maintained clear boundaries, maintained Q15 minute safety checks. Response: Pt. received awake in the koroma, he denies SI, HI, AH, VH his DC plan is for placement. Pt. reports poor sleep last night and feeling anxious Pt. took his morning meds without hesitancy. He is cooperative with staff and sociable with a few cohorts. Pt. has good eye contact and is receptive to talking to this internal communications writer. He ate all meals with cohorts without issue. He spent time in the tv room and took several small naps this shift. Pt. has fair hygiene, hair loosely combed, and is wearing unit scrubs. Pt. c/o HOLT and received PRN Tylenol with good results. Plan: Dr. Hinton is cross tapering his antidepressant. Mood is improving, but patient is at risk of re hospitalization if he discharges at this time.
[2022-05-09 19:00] VITALS: BP 111/64
[2022-05-09] MEDS: quetiapine 100mg tablet PO SCH (20:31)
[2022-05-09] MEDS: traZODone 50mg tablet PO SCH (20:31)
[2022-05-09] MEDS: prazosin 1mg capsule PO SCH (20:31)
[2022-05-09] MEDS ORDERED: traZODone 50mg tablet PO ONE (21:55)
--- NOTE | 2022-05-10 00:06 | NUR ---
Nursing Progress Note: Fernando Problem: Pt. was admitted from the ER on a 5150 hold for being a danger to himself. Patients brother recently and he reports increasing depression with suicidal thoughts to overdose on his prescription medications. He has a history of prior suicide attempts. He is chronically homeless and has a long Hx of methamphetamine abuse. Interventions: Medication administration, 1:1 MH assessment, maintained a safe and supportive environment, provided clear and simple instructions, provided encouragement regarding performance of ADLs, monitored behaviors and maintained clear boundaries, maintained Q15 minute safety checks. Response: Pt. received pacing in the hallway and later observed in the community room watching TV. He stated he had an interview with the [facility] and is excited he might be leaving soon. He reported some anxiety about feeling like his dad might soon and hes the only male left in his family to carry on the name. He denied SI/AH. He participated in snacks and took all HS medications. He was observed in the community room watching TV until bedtime. At around 2200 pt c/o having trouble sleeping, provider notified and orders received for PRN trazadone. Plan: Dr. Hinton is cross tapering his antidepressant. Mood is improving, but patient is at risk of re hospitalization if he discharges at this time.
[2022-05-10] MEDS: mag hydrox/Alum hydrox/simeth 30ml oral suspension PO PRN ×2 (07:00→19:33)
[2022-05-10] MEDS: haloperidol 5mg tablet PO SCH (07:49)
[2022-05-10] MEDS: venlafaxine XR 75mg capsule (Q24H) PO SCH (07:49)
[2022-05-10] MEDS: guaiFENesin ER 600mg tablet PO SCH (07:49)
[2022-05-10] MEDS: benztropine 1mg tablet PO SCH ×2 (07:49→20:03)
[2022-05-10] MEDS: benzonatate 100mg capsule PO SCH (07:49)
[2022-05-10 08:00] VITALS: BP 100/49
--- NOTE | 2022-05-10 10:04 | NUR ---
CASE MANAGEMENT This Residential Sales Consultant placed a call to [facility] and spoke with Hien who reported that she may have a male bed opening up. She asked if we would call back later this afternoon as she will know better by then. Eleni Dominguez, CORROSION CONTROL FITTER
[2022-05-10] MEDS: NICOTINE POLACRILEX 2 MG LOZENGE BC PRN ×3 (14:43→20:35)
--- NOTE | 2022-05-10 14:45 | NUR ---
Nursing Progress Note: Problem : Pt. was admitted from the ER on a 5150 hold for being a danger to himself. Patients brother recently and he reports increasing depression with suicidal thoughts to overdose on his prescription medications. He has a history of prior suicide attempts. He is chronically homeless and has a long hx of methamphetamine abuse. Interventions : 1:1 assessment, therapeutic conversation, active listening, ensured contract for safety, medication administration/education/monitoring, education on hand washing r/t MRSA positive screening, encouragement to come out of room and participate in unit activities, provided distraction, positive reinforcement, and maintained Q15 minute safety checks. Response : Pt was up for breakfast and cooperative with medications. Pt slept for most of the shift, he did come out of his room for lunch. Pt reported that he didn't need the Mucinex or Tessalon Perles anymore as he is no longer having cold symptoms. Notified Dr Hinton who ordered the medications discontinued. Pt denies depression, SI/HI/AH/VH. Pt states, "I'm ready to go...I'm going home on Friday." Per GUSTABO's note today, [facility] may have a bed opening up. Plan : Pt continues to require a safe and therapeutic environment while discharge plans are arranged.
[2022-05-10 19:00] VITALS: BP 109/78
[2022-05-10] MEDS: traZODone 50mg tablet PO SCH (20:03)
[2022-05-10] MEDS: prazosin 1mg capsule PO SCH (20:03)
[2022-05-10] MEDS: quetiapine 100mg tablet PO SCH (20:03)
[2022-05-10] MEDS ORDERED: traZODone 50mg tablet PO SCH (21:00)
--- NOTE | 2022-05-10 23:18 | NUR ---
Nursing Progress Note: Fernando Problem : Pt. was admitted from the ER on a 5150 hold for being a danger to himself. Patients brother recently and he reports increasing depression with suicidal thoughts to overdose on his prescription medications. He has a history of prior suicide attempts. He is chronically homeless and has a long hx of methamphetamine abuse. Interventions : 1:1 assessment, therapeutic conversation, active listening, ensured contract for safety, medication administration/education/monitoring, education on hand washing r/t MRSA positive screening, encouragement to come out of room and participate in unit activities, provided distraction, positive reinforcement, and maintained Q15 minute safety checks. Response : Pt was pacing the hallway asking this nurse for nicotine lozenge. He later was observed in the community room watching TV with peers conversing. He denies SI/HI/AH but states he has VH and sees splotches of color. He states he has some anxiety and feels since he has been homeless he has lost 10 years of his life. He took all HS medications without issue and is looking forward to discharging next week. Plan : Pt continues to require a safe and therapeutic environment while discharge plans are arranged.
[2022-05-11 07:00] VITALS: BP 95/53
[2022-05-11] MEDS: venlafaxine XR 75mg capsule (Q24H) PO SCH (07:45)
[2022-05-11] MEDS: benztropine 1mg tablet PO SCH ×2 (07:46→20:01)
[2022-05-11] MEDS: haloperidol 5mg tablet PO SCH (07:46)
[2022-05-11] MEDS: NICOTINE POLACRILEX 2 MG LOZENGE BC PRN ×3 (08:42→19:21)
--- NOTE | 2022-05-11 16:12 | NUR ---
Nursing Progress Note: Fernando Problem: Pt. was admitted from the ER on a 5150 hold for being a danger to himself. Patients brother recently and he reports increasing depression with suicidal thoughts to overdose on his prescription medications. He has a history of prior suicide attempts. He is chronically homeless and has a long Hx of methamphetamine abuse. Interventions: Medication administration, 1:1 MH assessment, maintained a safe and supportive environment, provided clear and simple instructions, provided encouragement regarding performance of ADLs, monitored behaviors and maintained clear boundaries, maintained Q15 minute safety checks. Response: Pt. received awake asleep in his room. He awoke to take his medications, which he took without hesitation. Pt. denies SI, HI, AH, and endorses VH stating Iv always seen splotches of colors Pt. reports his DC plan is unknown, as he is waiting on a bed with [facility] possibly. Pt. spent time OOB and in the community room with cohorts, and was observed socializing with other males. Pt. requested PRN nicotine lozenges throughout the shift. He ate all meals in the community room and interacts appropriately. Pt. has fair hygiene, hair loosely combed, and wears stained street clothes. Pt. 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 Plan: Dr. Hinton is cross tapering his antidepressant. Mood is improving, but patient is at risk of re hospitalization if he discharges at this time.
[2022-05-11 19:00] VITALS: BP 102/69
[2022-05-11] MEDS: mag hydrox/Alum hydrox/simeth 30ml oral suspension PO PRN (19:01)
[2022-05-11] MEDS: traZODone 50mg tablet PO SCH (20:01)
[2022-05-11] MEDS: quetiapine 100mg tablet PO SCH (20:01)
[2022-05-11] MEDS: prazosin 1mg capsule PO SCH (20:04)
--- NOTE | 2022-05-12 00:26 | NUR ---
Nursing Progress Note: Fernando Problem : Pt. was admitted from the ER on a 5150 hold for being a danger to himself. Patients brother recently and he reports increasing depression with suicidal thoughts to overdose on his prescription medications. He has a history of prior suicide attempts. He is chronically homeless and has a long hx of methamphetamine abuse. Interventions : 1:1 assessment, therapeutic conversation, active listening, ensured contract for safety, medication administration/education/monitoring, education on hand washing r/t MRSA positive screening, encouragement to come out of room and participate in unit activities, provided distraction, positive reinforcement, and maintained Q15 minute safety checks. Response : received pt. laying in bed at the beginning of shift. Pt. later came to the nurses station complaining of heartburn. PRN Maalox was provided w/effectiveness. He spent time sitting in the community room and walking the unit. Denies SI, HI, AH, VH stating "I'm just ready to leave and will be leaving on Friday". Participated in evening snack. Compliant with medications. PRN nicotine lozenge provided. Observed and appears to be sleeping. Plan : Pt continues to require a safe and therapeutic environment while discharge plans are arranged.
[2022-05-12] MEDS: haloperidol 5mg tablet PO SCH (07:14)
[2022-05-12] MEDS: venlafaxine XR 75mg capsule (Q24H) PO SCH (07:14)
[2022-05-12] MEDS: benztropine 1mg tablet PO SCH ×2 (07:14→20:10)
[2022-05-12] MEDS: NICOTINE POLACRILEX 2 MG LOZENGE BC PRN ×6 (07:14→19:32)
[2022-05-12 07:15] VITALS: BP 93/54
--- NOTE | 2022-05-12 17:16 | NUR ---
Nursing Progress Note: Problem: Pt. was admitted from the ER on a 5150 hold for being a danger to himself. Patients brother recently and he reports increasing depression with suicidal thoughts to overdose on his prescription medications. He has a history of prior suicide attempts. He is chronically homeless and has a long hx of methamphetamine abuse. Interventions: Provide medication administration & medication management; Maintained a safe & supportive environment; Clear & simple instructions; Direction & encouragement regarding performance of ADLs; monitored behaviors & maintained clear boundaries; Patient physical assessment & 1:1 patient interview; Therapeutic conversation & active listening; Patient education & monitoring. Response: Received patient who was resting in bed and woke him up to take his medications at 0725. Patient was pleasant and cooperative and a patient assessment and interview were completed with the patient. Dr. Hinton came to the patients bedside to visit with him at approximately 0735. Patient rested in bed until breakfast arrived at 0805. Patient returned to his bed until lunch arrived at 1300 and returned to the Community Room. Patient shaved his hills off after lunch with JUNIOR Mckeon present in his room. Patient was smiling and reported I look like I looked in my yearbook, and laughed. Patient got up for snack time at 1500. Patient stated to the Fork Lift Truck Operator I want to go to the [facility] until I can get into a rehab facility. Plan: Pt. continues to require interruption of current crisis, medication adjustments, and a safe and supportive environment.
[2022-05-12 19:16] VITALS: BP 106/73
[2022-05-12] MEDS: traZODone 50mg tablet PO SCH (20:10)
[2022-05-12] MEDS: quetiapine 100mg tablet PO SCH (20:10)
[2022-05-12] MEDS: prazosin 1mg capsule PO SCH (20:10)
[2022-05-12] MEDS: mag hydrox/Alum hydrox/simeth 30ml oral suspension PO PRN (20:17)
--- NOTE | 2022-05-13 03:57 | NUR ---
Nursing Progress Note: Problem: Pt. was admitted from the ER on a 5150 hold for being a danger to himself. Patients brother recently and he reports increasing depression with suicidal thoughts to overdose on his prescription medications. He has a history of prior suicide attempts. He is chronically homeless and has a long hx of methamphetamine abuse. Interventions: Provide medication administration & medication management; Maintained a safe & supportive environment; Clear & simple instructions; Direction & encouragement regarding performance of ADLs; monitored behaviors & maintained clear boundaries; Patient physical assessment & 1:1 patient interview; Therapeutic conversation & active listening; Patient education & monitoring. Response: Patient is pleasant and cooperative with care; compliant with medication. PRN Nicotine lozenge provided. He denies SI, HI, A/VH; no apparent delusions expressed. Patient expressed looking forward to his discharge. He participated in HS snack, socialized with peers and watched TV in recreation room prior to bed; observed sleeping and does not appear to be having difficulty. Plan: Pt. continues to require interruption of current crisis, medication adjustments, and a safe and supportive environment.
[2022-05-13 07:00] VITALS: BP 101/57
[2022-05-13] MEDS: haloperidol 5mg tablet PO SCH (07:31)
[2022-05-13] MEDS: benztropine 1mg tablet PO SCH (07:31)
[2022-05-13] MEDS: venlafaxine XR 75mg capsule (Q24H) PO SCH (07:31)
[2022-05-13 08:00] VITALS: BP 101/57
[2022-05-13] MEDS: NICOTINE POLACRILEX 2 MG LOZENGE BC PRN ×3 (08:41→13:45)
[2022-05-13] MEDS: mag hydrox/Alum hydrox/simeth 30ml oral suspension PO PRN (12:58)
--- NOTE | 2022-05-13 13:19 | NUR ---
5270 for GD released
[2022-05-13] MEDS ORDERED: PRAZ1CAP5 PO (15:39)
[2022-05-13] MEDS ORDERED: QUET300T20 PO (15:39)
[2022-05-13] MEDS ORDERED: BENZ2TAB65 PO (15:39)
[2022-05-13] MEDS ORDERED: NICO-907 BC (15:39)
[2022-05-13] MEDS ORDERED: HALO5TAB PO (15:39)
[2022-05-13] MEDS ORDERED: VENL75CA61 PO (15:39)
[2022-05-13] MEDS ORDERED: TRAZ-251 PO (15:39)
--- NOTE | 2022-05-13 16:53 | NUR ---
Discharge Note 05/13/2022 at 1605 Received discharge orders from Dr. Hinton today at 1530. Patient to be discharged today. Retrieved patients stored medications from the Pharmacy. FRANCESCA Reddy, went over the patients belongings with him and he signed that he received all of his belongings that he came in with. Patients discharge packet was reviewed with the patient at 1555 and patient refused a ride to go to the [facility] on [address] [facility] [address] to retrieve his mail. Patient was given 3 bus passes to use to get to/from his appointments. Patient was escorted to the front lobby at 1605 with his belongings, his wrist crutches and his stored medications.
== END 2022-05-13 16:05 | disposition home or self-care (01) | DRG 751 ==
LOC: ER 17:09 → ED HOLD 04-25 14:00 → ADULT MH 04-25 22:00
PROVIDERS: ADMIT Psychiatry & Neurology Psychiatry; ATTEND Psychiatry & Neurology Psychiatry
DX: F33.2 Major depressive disorder, recurrent severe without psychotic features (principal); R45.851 Suicidal ideations; F25.9 Schizoaffective disorder, unspecified; R56.9 Unspecified convulsions; G80.9 Cerebral palsy, unspecified; J45.909 Unspecified asthma, uncomplicated; Z20.822 Contact with and (suspected) exposure to COVID-19; F17.210 Nicotine dependence, cigarettes, uncomplicated; F15.10 Other stimulant abuse, uncomplicated; Z59.00 Homelessness unspecified; Z88.0 Allergy status to penicillin; Z88.2 Allergy status to sulfonamides; Z88.8 Allergy status to other drugs, medicaments and biological substances; Z79.899 Other long term (current) drug therapy; Z56.0 Unemployment, unspecified; Z82.0 Family history of epilepsy and other diseases of the nervous system; Z91.14 Patient's other noncompliance with medication regimen; Z81.8 Family history of other mental and behavioral disorders
CPT/HCPCS: 36415; 80053; 80061; 80305; 80320; 81001; 83036; 85025; 87081; 87811; 97116; 97161; 97530; 99285

== ENCOUNTER 2022-09-19 16:53 | Emergency (ER) | payer MEDICAID ==
[~2022-09-19] VITALS: Ht 167.6 cm; Wt 59.1 kg
[~2022-09-19 16:53] MED LIST changes: +BENZ2TAB65 PO; -DIVA-81 PO; -DIVA500T9 PO; +HALO5TAB PO; +NICO-907 BC; +PRAZ1CAP5 PO; +QUET300T20 PO; +TRAZ-251 PO; +VENL75CA61 PO
[2022-09-19 17:05] VITALS: BP 142/80; PULSE 86; RESP 15; O2SAT 99
[2022-09-19 19:33] LABS: URINE AMPHETAMINE SCREEN POSITIVE (Neg); URINE BARBITUATE SCREEN NEGATIVE (Neg); URINE BENZODIAZEPINES SCREEN NEGATIVE (Neg); URINE CANNABINOID SCREEN POSITIVE (Neg); URINE COCAINE SCREEN NEGATIVE (Neg); URINE METHADONE SCREEN NEGATIVE (Neg); URINE OPIATE SCREEN NEGATIVE (Neg); URINE PHENCYCLIDINE SCREEN NEGATIVE (Neg)
== END 2022-09-19 21:15 | disposition left against medical advice (07) ==
LOC: ER 16:54
DX: R45.851 Suicidal ideations (principal); Z20.822 Contact with and (suspected) exposure to COVID-19; J45.909 Unspecified asthma, uncomplicated; F31.9 Bipolar disorder, unspecified; F12.10 Cannabis abuse, uncomplicated; F15.19 Other stimulant abuse with unspecified stimulant-induced disorder; F20.9 Schizophrenia, unspecified; Z59.00 Homelessness unspecified; Z56.0 Unemployment, unspecified
CPT/HCPCS: 36415; 80305; 87811; 99283

== ENCOUNTER 2022-10-31 14:05 | Emergency (ER) | payer MEDICAID ==
[~2022-10-31] VITALS: Ht 167.6 cm; Wt 59.1 kg
[2022-10-31 14:21] VITALS: BP 109/66; PULSE 104; RESP 18; TEMP 98.3; O2SAT 96
--- NOTE | 2022-10-31 20:59 | NUR ---
AT BEDSIDE WITH PATIENT. PT REFUSED ABX AND PSYCH MEDICATIONS. PT WALKED AWAY FROM MD AND STATED " FUCK YOU MAN" PT PROCEEDED TO LEAVE THE ER AND THREW PAPERWORK AT NURSES STATION.
== END 2022-10-31 21:27 | disposition home or self-care (01) ==
LOC: ER 14:06
DX: L03.113 Cellulitis of right upper limb (principal); F31.9 Bipolar disorder, unspecified; F20.9 Schizophrenia, unspecified; F17.200 Nicotine dependence, unspecified, uncomplicated; F12.10 Cannabis abuse, uncomplicated; F15.10 Other stimulant abuse, uncomplicated; Z59.00 Homelessness unspecified; Z56.0 Unemployment, unspecified; Z88.0 Allergy status to penicillin; Z88.8 Allergy status to other drugs, medicaments and biological substances; Z79.899 Other long term (current) drug therapy
CPT/HCPCS: 73130; 99283

== ENCOUNTER 2022-11-04 15:30 | Inpatient (IN) | payer MEDICAID ==
[~2022-11-04] VITALS: Ht 167.6 cm; Wt 57.2 kg
[2022-11-04 20:30] VITALS: BP 101/63; PULSE 105; RESP 16; TEMP 98.7; O2SAT 96
[2022-11-04] MEDS ORDERED: mag hydrox/Alum hydrox/simeth 30ml oral suspension PO PRN (20:45)
[2022-11-04] MEDS ORDERED: magnesium hydroxide 30ml (MOM) UD suspension PO PRN (20:45)
[2022-11-04] MEDS ORDERED: loperamide 2mg capsule PO PRN (20:45)
[2022-11-04] MEDS ORDERED: acetaminophen 325mg tablet PO PRN ×2 (20:45)
[2022-11-04] MEDS: traZODone 50mg tablet PO PRN (21:13)
[2022-11-04] MEDS: ibuprofen tablet 400 MG TABLET PO PRN (21:13)
[2022-11-04 22:27] VITALS: RESP 16; O2SAT 96
--- NOTE | 2022-11-05 00:45 | NUR ---
Admit note: Pt arrived on floor at 20:15 accompanied by yao Paul. He was a direct admit from [facility] where he was held on a 5150 for DTO . He was having worsening HI and AH telling him to hurt people. His left arm is wrapped in gauze CD+I. Per medical record he injured hand punching a wall and was seen in our ER on 10/31. Problem : Per 5150 pt verbalized desire to hurt others and reported hearing voices telling him to hurt others. Interventions : Admit process completed. Maintained a safe and supportive environment, Medication administration ,education and monitoring, provided clear and simple instructions, provided active listening and positive encouragement, encouraged participation on the unit, and maintained Q 15min safety checks. Response : Pt irritable and fatigued. Answered questions with brief responses, relatively cooperative with admit process. Requested something for pain and sleep. Given Motrin and Trazodone. Pt ate snack. went to sleep without difficulty and is sleeping at this time. Plan : Pt. requires interruption of current crisis, medication adjustments, and a safe and supportive environment.
[2022-11-05] MEDS ORDERED: NO HOME MEDS (05:18)
[2022-11-05 07:30] VITALS: RESP 18; O2SAT 99
[2022-11-05 08:00] VITALS: BP 120/68; PULSE 65; RESP 18; TEMP 98.3; O2SAT 99
[2022-11-05] MEDS: HALLS - SOOTHE MENTHOL 1.8 MG cough drop LOZENGE MM PRN ×2 (11:58→16:42)
[2022-11-05 12:39] LABS: HDL CHOLESTEROL 66 MG/DL (35-60); LDL CHOLESTEROL 78 MG/DL (50-100); TRIGLYCERIDES 58 MG/DL (20-135)
[2022-11-05 12:41] LABS: HEMOGLOBIN A1C 5.6 % (4.5-6.2)
[2022-11-05 12:51] LABS: CHOL/HDL RATIO 2.3 (0.00-4.99); CHOLESTEROL 150 MG/DL (0-200)
[2022-11-05] MEDS ORDERED: nicotine 21mg patch - 24 hr TD ONE (16:35)
[2022-11-05] MEDS ORDERED: LORazepam 1 MG tablet PO ONE (16:35)
[2022-11-05] MEDS: traMADol 50MG tablet PO PRN (16:39)
[2022-11-05] MEDS: NICOTINE POLACRILEX 2 MG LOZENGE BC PRN (16:39)
--- NOTE | 2022-11-05 16:56 | NUR ---
Pt. pulled his right hand splint off. RN paged hospitalist to assess and treat.
--- NOTE | 2022-11-05 17:49 | NUR ---
Nursing Progress Note: Problem : Per 5150 pt verbalized desire to hurt others and reported hearing voices telling him to hurt others. Interventions : Admit process completed. Maintained a safe and supportive environment, Medication administration ,education and monitoring, provided clear and simple instructions, provided active listening and positive encouragement, encouraged participation on the unit, and maintained Q 15min safety checks. Response : RN received Pt. asleep in bed at change of shift. Pt awoke and ate breakfast. Pt requires help opening food packages due to his right hand fx. During breakfast a female peer attempted to engage with pt. in conversation. Pt. states, Dont talk to me. Pt. isolated to his room. 1:1 done at bedside, pt. continues to endorse HI, stating, I just hate people. Pt. denies SI, A/V hallucinations. Hospitalist came to assess pt. and pt. became agitated. Pt. then came and demanded pain medication and a nicotine lozenge. When pt. informed that an ordered would have to be obtained for nicotine lozenge, pt. began loudly cursing and demanding Nicotine. Security was called and pt. continued to verbally escalate. Pt. pulled his right hand splint off. Pt. given Ativan 2mg and Tramadol 25mg po with good effect. Hospitalist was paged regarding new splint and RN was informed to contact orthopedic designer. RN paged orthopedic designer. Plan : Pt. requires interruption of current crisis, medication adjustments, and a safe and supportive environment.
[2022-11-05 19:00] VITALS: RESP 14; O2SAT 96
--- NOTE | 2022-11-05 19:41 | NUR ---
technology sales consultant came to unit to assess pts. splint and try to put it back on the the patient, but the patient refused to have it done. He states it is too hard to do things with the splint on.
[2022-11-05 20:00] VITALS: BP 101/54; PULSE 89; RESP 14; TEMP 98.9; O2SAT 96
--- NOTE | 2022-11-06 04:10 | NUR ---
Nursing Progress Note: Problem: Per 5150 pt. verbalized desire to hurt others and reported hearing voices telling him to hurt others. Interventions: Admit process completed. Maintained a safe and supportive environment, Medication administration, education and monitoring, provided clear and simple instructions, provided active listening and positive encouragement, encouraged participation on the unit, and maintained Q 15min safety checks. Response: Received pt. in hallway where he was upset over his dinner plate. Im lactose intolerant and all I could eat was my bread stick. Pt started demanding food. Pt was redirected but was unable to calm himself down. CRN corrected his diet and pt. ate a snack. Pt relaxed more after receiving food. Pt is isolating in his room except to get needs met. Pt refused to answer any assessment questions. Pt then went to sleep. No HS medications ordered, no PRNs given. Monitor for safety. Plan: Pt. requires interruption of current crisis, medication adjustments, and a safe and supportive environment.
[2022-11-06 07:00] VITALS: RESP 16; O2SAT 98
[2022-11-06 08:00] VITALS: BP 90/45; PULSE 67; RESP 16; TEMP 98.9; O2SAT 98
[2022-11-06] MEDS: venlafaxine XR 37.5mg cap (Q24H) PO SCH ×2 (08:00→13:21)
[2022-11-06] MEDS ORDERED: nicotine 21mg patch - 24 hr TD SCH (08:00)
[2022-11-06 09:52] LABS: BASOPHILS # (AUTO) 0.1 X10'3 (0-0.2); BASOPHILS % (AUTO) 0.7 % (0-1); EOSINOPHILS # (AUTO) 0.2 X10'3 (0-0.9); EOSINOPHILS % (AUTO) 2.4 % (0-6); HEMATOCRIT 42.5 % (42.0-52.0); HEMOGLOBIN 14.3 g/dl (14.0-17.9); LYMPHOCYTES # (AUTO) 1.2 X10'3 (1.1-4.8); LYMPHOCYTES % (AUTO) 16.2 % (21-51); MEAN CORPUSCULAR HEMOGLOBIN 28.6 PG (27.0-31.0); MEAN CORPUSCULAR HGB CONC 33.6 g/dL (33.0-36.5); MEAN CORPUSCULAR VOLUME 85.1 FL (78-98); MEAN PLATELET VOLUME 8.2 FL (7.4-10.4); MONOCYTES # (AUTO) 0.8 X10'3 (0-0.9); MONOCYTES % (AUTO) 10.3 % (2-12); NEUTROPHILS # (AUTO) 5.3 X10'3 (1.8-7.7); NEUTROPHILS % (AUTO) 70.4 % (42-75); PLATELET COUNT 282 X10'3 (140-440); RED BLOOD COUNT 4.99 X10'6 (4.70-6.10); RED CELL DISTRIBUTION WIDTH 16.9 % (11.5-14.5); WHITE BLOOD COUNT 7.5 X10'3 (4.5-11.0)
[2022-11-06 10:10] LABS: ALANINE AMINOTRANSFERASE 19 U/L (12-78); ALBUMIN 3.3 G/DL (3.4-5.0); ALBUMIN/GLOBULIN RATIO 0.9 (1.1-1.5); ALKALINE PHOSPHATASE 74 IU/L (46-116); ANION GAP 5 (8-16); ASPARTATE AMINO TRANSFERASE 19 U/L (10-37); BILIRUBIN,TOTAL 0.3 MG/DL (0.1-1.0); BLOOD UREA NITROGEN 16 MG/DL (7-18); BUN/CREATININE RATIO 19.8 (10.0-20.0); CALCIUM 9.5 MG/DL (8.5-10.1); CHLORIDE 101 MMOL/L (99-107); CREATININE 0.81 MG/DL (0.60-1.10); GLUCOSE 91 MG/DL (70-104); POTASSIUM 4.5 MMOL/L (3.5-5.1); SODIUM 135 MMOL/L (135-145); THYROID STIMULATING HORMONE 0.88 ulU/ml (0.34-4.50); TOTAL CARBON DIOXIDE 28.6 MMOL/L (24-32); TOTAL PROTEIN 7.1 G/DL (6.4-8.2); eCRCL 107 ML/MIN; eGFR > 90 ML/MIN
[2022-11-06] MEDS: LORazepam 0.5 MG tablet PO SCH ×2 (13:22→19:59)
[2022-11-06] MEDS: traMADol 50MG tablet PO PRN ×2 (13:23→20:08)
[2022-11-06] MEDS: HALLS - SOOTHE MENTHOL 1.8 MG cough drop LOZENGE MM PRN (13:23)
[2022-11-06] MEDS: NICOTINE POLACRILEX 2 MG LOZENGE BC PRN ×2 (13:23→18:28)
--- NOTE | 2022-11-06 17:50 | NUR ---
Nursing Progress Note: Fernando Problem : Per 5150 Pt verbalized desire to hurt others and reported hearing voices telling him to hurt others. Interventions: Admit process completed. Maintained a safe and supportive environment, Medication administration , education and monitoring, provided clear and simple instructions, provided active listening and positive encouragement, encouraged participation on the unit, and maintained Q 15min safety checks. Response : Received Pt in bed sleeping w/o distress at the beginning of this shift. Pt was cooperative with vitals and returned to sleep. He woke and ate breakfast. During breakfast he got into argument with another Pt and was able to control himself. Pt refused AM meds and refused x-ray of his hand. Pt napped after breakfast and woke for lunch. Pt took 1300 Ativan and agreed to take the Effexor he refused in the morning. Pt received Tramadol for pain and it was effective. Pt received a Nicotine Lozenge and cough drop as well today. He spent afternoon in his room intermittently napping and is less resistive to care. Pt. denies SI, A/V hallucinations. Plan : Pt. requires interruption of current crisis, medication adjustments, and a safe and supportive environment.
[2022-11-06 19:00] VITALS: RESP 16; O2SAT 98
[2022-11-06] MEDS: traZODone 50mg tablet PO PRN (19:59)
[2022-11-06 20:00] VITALS: BP 101/65; PULSE 87; RESP 18; TEMP 98.3; O2SAT 96
--- NOTE | 2022-11-07 04:11 | NUR ---
Nursing Progress Note: Fernando Problem: Per 5150 Pt verbalized desire to hurt others and reported hearing voices telling him to hurt others. Interventions: Admit process completed. Maintained a safe and supportive environment, Medication administration, education and monitoring, provided clear and simple instructions, provided active listening and positive encouragement, encouraged participation on the unit, and maintained Q 15min safety checks. Response: Pt in his assigned bed sleeping. Pt woke and agreed to have his vital signs taken. Pt took his scheduled Ativan along with Trazodone and Tramadol for hand pain, 08/19. Pt ate snack in his room. Pt c/o that he cant use his hand because it was broken. Radial pulse is strong. Pt denies SI/HI/AVH. Pt does appear to be minimizing his symptoms. Pt encouraged to shower and attend to ADLs. Pt still refusing to wear his splint. No behaviors observed tonight. Monitor for safety. Plan: Pt. requires interruption of current crisis, medication adjustments, and a safe and supportive environment.
[2022-11-07 07:00] VITALS: RESP 16; O2SAT 98
[2022-11-07 08:00] VITALS: BP 90/51; PULSE 62; RESP 18; TEMP 97.8; O2SAT 93
[2022-11-07] MEDS: LORazepam 0.5 MG tablet PO SCH ×3 (08:13→20:07)
[2022-11-07] MEDS: venlafaxine XR 75mg capsule (Q24H) PO SCH (08:15)
[2022-11-07] MEDS: NICOTINE POLACRILEX 2 MG LOZENGE BC PRN ×2 (08:16→17:00)
[2022-11-07] MEDS: traMADol 50MG tablet PO PRN (17:00)
[2022-11-07] MEDS: ibuprofen tablet 400 MG TABLET PO PRN (17:00)
--- NOTE | 2022-11-07 17:49 | NUR ---
Nursing Progress Note: Problem : Per 5150 Pt verbalized desire to hurt others and reported hearing voices telling him to hurt others. Interventions: Admit process completed. Maintained a safe and supportive environment, Medication administration , education and monitoring, provided clear and simple instructions, provided active listening and positive encouragement, encouraged participation on the unit, and maintained Q 15min safety checks. Response : Patient sleeping at shift change. He reluctantly got up for breakfast after lots of encouragement. He was compliant with all meds, no issues. Attempted 1:1 but patient is guarded and only wants to talk about his hold being up today. He was later served a 5250, so will be here a little longer. He does not at all appear to be ready yet. He has only requested PRN Nicotine lozenge today. He denies all MH symptoms. Patient is spending most time isolating in his room. Hes either sleeping or tossing and turning trying to sleep. Plan : Pt. requires interruption of current crisis, medication adjustments, and a safe and supportive environment.
[2022-11-07 20:00] VITALS: RESP 18
--- NOTE | 2022-11-08 03:20 | NUR ---
Nursing Progress Note: Problem: Per 5150 Pt verbalized desire to hurt others and reported hearing voices telling him to hurt others. Interventions: Admit process completed. Maintained a safe and supportive environment, Medication administration , education and monitoring, provided clear and simple instructions, provided active listening and positive encouragement, encouraged participation on the unit, and maintained Q 15min safety checks. Response : This FURNACE UNLOADER resumed care for patient at 1830. Patient seen in bed with blanket over head. During 1:1, patient was quick with replying to questions in hopes id let him go back to bed and I'd leave him alone. Patient denied all psychotic symptoms but admitted to wanting to hurt someone. Patient enjoyed snack in room. patient remains isolated. Plan : Pt. requires interruption of current crisis, medication adjustments, and a safe and supportive environment.
[2022-11-08 07:00] VITALS: RESP 16; O2SAT 98
[2022-11-08 08:00] VITALS: BP 96/73; PULSE 72; RESP 14; TEMP 97.5; O2SAT 95
[2022-11-08] MEDS: venlafaxine XR 75mg capsule (Q24H) PO SCH (08:19)
[2022-11-08] MEDS: LORazepam 0.5 MG tablet PO SCH ×3 (08:19→21:14)
[2022-11-08] MEDS: HYDROcodone/acetaminophen 5mg/325mg tablet PO PRN ×2 (08:24→16:58)
[2022-11-08] MEDS: NICOTINE POLACRILEX 2 MG LOZENGE BC PRN ×2 (08:24→16:58)
--- NOTE | 2022-11-08 09:23 | NUR ---
Initial: Pt admit for MDD with HI and SI. Currently on a regular diet and eating well, documented with average 83% PO intake of meals meeting estimated nutrient needs. LBM 11/07 per EMR. No nutrition intervention warranted at this time. Will continue to follow and make recommendations as appropriate. Recommendations: 1) Continue regular diet 2) Bowel care PRN 3) Weekly scaled weights Addendum: 11/08/22 at [address] Amended: Links added.
--- NOTE | 2022-11-08 17:38 | NUR ---
Nursing Progress Note: Problem : Per 5150 Pt verbalized desire to hurt others and reported hearing voices telling him to hurt others. Interventions: Admit process completed. Maintained a safe and supportive environment, Medication administration, education and monitoring, provided clear and simple instructions, provided active listening and positive encouragement, encouraged participation on the unit, and maintained Q 15min safety checks. Response : Patient wakes for breakfast and reluctantly gets up to eat. He eats quickly and heads back to bed where he accepts his medications, then goes back to sleep. Patient remains guarded and will only say that hes feeling like hurting people. He denies other MH symptoms. Patient requests PRN [place] and a lozenge this morning, but nothing since. He sleeps all day, but its restless sleep and his body is always rocking or twitching. He reports that hes always tired and just needs to sleep. Plan : Pt. requires interruption of current crisis, medication adjustments, and a safe and supportive environment.
[2022-11-08 19:00] VITALS: BP 110/66; PULSE 71; RESP 16; TEMP 98.2; O2SAT 99
[2022-11-08] MEDS ORDERED: QUEtiapine 25mg tablet PO SCH (21:00)
[2022-11-08] MEDS: quetiapine 100mg tablet PO SCH (21:14)
--- NOTE | 2022-11-09 00:16 | NUR ---
Nursing Progress Note: Problem: Per 5150 Pt verbalized desire to hurt others and reported hearing voices telling him to hurt others. Interventions: 1:1 assessment, therapeutic conversation, active listening, medication administration/education/monitoring, behavior monitoring and intervention as needed and maintained Q15 minute safety checks. Response: Patient is pleasant and cooperative with care; compliant with medication. Patient denied SI, VH; endorsed HI and AH. He expressed wanting to harm others d/t being "taken advantage of." Patient continues to self isolate; only out of his room once to request a snack. Patient was provided a snack and he promptly returned to bed; observed sleeping and does not appear to be having difficulty. Plan: Pt. requires interruption of current crisis, medication adjustments, and a safe and supportive environment.
[2022-11-09 07:00] VITALS: RESP 16; O2SAT 93
[2022-11-09 08:00] VITALS: BP 90/52; PULSE 75; RESP 16; TEMP 98.6; O2SAT 93
[2022-11-09] MEDS: venlafaxine XR 75mg capsule (Q24H) PO SCH (08:46)
[2022-11-09] MEDS: LORazepam 0.5 MG tablet PO SCH ×3 (08:46→21:14)
[2022-11-09 11:35] VITALS: BP 104/59; PULSE 75
--- NOTE | 2022-11-09 17:07 | NUR ---
Nursing Progress Note: Fernando Problem: Per 5150, Pt verbalized desire to hurt others and reported hearing voices telling him to hurt others. Interventions: Provided 1:1 assessment; Maintained a safe and supportive environment; Medication administration/education/monitoring; Provided clear and simple instructions; Provided active listening and positive encouragement; Encouraged participation on the unit, and Maintained Q 15min safety checks. Response: Patient received sleeping in bed at shift change with no s/s of distress. He awoke and joined for breakfast in the group room with peers. Pt is receptive to scheduled medication. Pt is A&O to self and place. Endorsed that he cannot recall the current month, year, or current president. When asked assessment questions, patient endorses that he doesnt care and doesnt feel like talking. Pt hesitant and short spoken during assessment. Pt reported to this auto service writer that he is here because he feels like hurting people. He was isolative to his room the majority of the shift. Pt noted to be present during snack and meal times but was otherwise isolative and guarded. Plan: Pt. requires interruption of current crisis, medication adjustments, and a safe and supportive environment.
[2022-11-09 19:00] VITALS: RESP 14; O2SAT 92
[2022-11-09 19:55] VITALS: BP 110/58; PULSE 64; RESP 14; TEMP 98.2; O2SAT 92
[2022-11-09] MEDS: quetiapine 100mg tablet PO SCH (21:14)
[2022-11-09 22:20] VITALS: RESP 14; O2SAT 92
[2022-11-09] MEDS: HALLS - SOOTHE MENTHOL 1.8 MG cough drop LOZENGE MM PRN (23:04)
--- NOTE | 2022-11-10 01:30 | NUR ---
Nursing Progress Note: Fernando Problem: Per 5150, Pt verbalized desire to hurt others and reported hearing voices telling him to hurt others. Interventions: Provided 1:1 assessment; Maintained a safe and supportive environment; Medication administration/education/monitoring; provided clear and simple instructions; provided active listening and positive encouragement; Encouraged participation on the unit, and Maintained Q 15min safety checks. Response: Received report from AM shift. Pt in room in bed with eyes open. Pt not cooperative, guarded and isolates self. Pt tolerated meds with no issues noted. Pt refused 1:1 assessment and refuse to answer questions. Pt requested PRN halls cough drop this shift. No s/s of distress at this time. Plan: Pt. requires interruption of current crisis, medication adjustments, and a safe and supportive environment.
[2022-11-10 07:30] VITALS: RESP 18; O2SAT 94
[2022-11-10 07:38] VITALS: BP 107/60; PULSE 65; RESP 18; TEMP 98.6; O2SAT 94
[2022-11-10] MEDS: venlafaxine XR 75mg capsule (Q24H) PO SCH (08:04)
[2022-11-10] MEDS: LORazepam 0.5 MG tablet PO SCH ×3 (08:04→20:46)
[2022-11-10] MEDS ORDERED: LORazepam 1 MG tablet PO ONE (15:35)
[2022-11-10] MEDS ORDERED: QUEtiapine 25mg tablet PO ONE (15:35)
--- NOTE | 2022-11-10 17:51 | NUR ---
Nursing Progress Note: Fernando Problem: Per 5150, Pt verbalized desire to hurt others and reported hearing voices telling him to hurt others. Interventions: Provided 1:1 assessment; Maintained a safe and supportive environment; Medication administration/education/monitoring; Provided clear and simple instructions; Provided active listening and positive encouragement; Encouraged participation on the unit, and Maintained Q 15min safety checks. Response: RN received pt. asleep in bed at start of shift. Pt. awoke for breakfast and took all medication. Pt. ate all meals in the community room. 1:1 done at bedside, pt. asks, Is today the first?. When pt. informed that today is the first of the month pt. began to perseverate on his discharge, stating, Can you try and get the doctor to discharge me today? Pt. denies all psych symptoms, states, I feel fine. Pt. napped intermittently throughout the day. After pt. saw his provider and informed that he wont be discharged today pt. began yelling loudly and cursing. When RN attempted to redirect pt., pt. replied, I dont give a about anyone else! I want out! Security called and pt. given Seroquel 50mg and Ativan 1mg po with good effect. Plan: Pt. requires interruption of current crisis, medication adjustments, and a safe and supportive environment.
[2022-11-10 20:00] VITALS: RESP 16
[2022-11-10] MEDS: quetiapine 100mg tablet PO SCH (20:46)
--- NOTE | 2022-11-11 06:00 | NUR ---
Nursing Progress Note: Problem: Per 5150 Pt verbalized desire to hurt others and reported hearing voices telling him to hurt others. Interventions: 1:1 assessment, therapeutic conversation, active listening, medication administration/education/monitoring, behavior monitoring and intervention as needed and maintained Q15 minute safety checks. Response: Patient irritable and resistive to care this shift; refused VS and provided one word responses during MH assessment. He denied SI, HI, A/VH. Compliant with HS medication. He remained isolative to his room; provided HS snack. He is observed sleeping and does not appear to be having difficulty. Plan: Pt. requires interruption of current crisis, medication adjustments, and a safe and supportive environment.
[2022-11-11 07:30] VITALS: BP 106/65; PULSE 76; RESP 16; TEMP 98.1; O2SAT 96
[2022-11-11] MEDS: LORazepam 0.5 MG tablet PO SCH ×2 (08:15→12:53)
[2022-11-11] MEDS: venlafaxine XR 75mg capsule (Q24H) PO SCH (08:15)
[2022-11-11] MEDS ORDERED: QUET100T34 PO (13:08)
[2022-11-11] MEDS ORDERED: NICO-907 BC (13:08)
[2022-11-11] MEDS ORDERED: VENL75CA61 PO (13:08)
[2022-11-11] MEDS ORDERED: TRAZ-251 PO (13:08)
[2022-11-11] MEDS: NICOTINE POLACRILEX 2 MG LOZENGE BC PRN (13:12)
--- NOTE | 2022-11-11 14:53 | NUR ---
DISCHARGE NOTE: Pt. discharged to [facility], pt. refused ride because he wanted to walk. Pt. discharged with all belongings and valuables. RN went over all discharge paperwork with pt. Pt. verbalized understanding of and signed all paperwork including firearms restriction, emergency phone numbers including 911, and f/u plan and discharge medication. Pt. denies SI/HI, A/V hallucinations. Pt. is is A&Ox4 and in no apparent distress.
== END 2022-11-11 14:53 | DRG 751 ==
LOC: ADULT MH 15:30
PROVIDERS: ADMIT Psychiatry & Neurology Psychiatry; ATTEND Psychiatry & Neurology Psychiatry
DX: F33.2 Major depressive disorder, recurrent severe without psychotic features (principal); R45.851 Suicidal ideations; F29 Unspecified psychosis not due to a substance or known physiological condition; R45.850 Homicidal ideations; F41.9 Anxiety disorder, unspecified; F15.10 Other stimulant abuse, uncomplicated; Z79.899 Other long term (current) drug therapy; Z88.0 Allergy status to penicillin; Z88.2 Allergy status to sulfonamides; Z88.8 Allergy status to other drugs, medicaments and biological substances; Z81.8 Family history of other mental and behavioral disorders; Z59.00 Homelessness unspecified
CPT/HCPCS: 36415; 80053; 80061; 83036; 84443; 85025

== ENCOUNTER 2022-12-29 03:37 | Emergency (ER) | payer MEDICARE, MEDICAID ==
[~2022-12-29] VITALS: Ht 167.6 cm; Wt 59.1 kg
[~2022-12-29 03:37] MED LIST changes: -BENZ2TAB65 PO; -HALO5TAB PO; -PRAZ1CAP5 PO; +QUET100T34 PO; -QUET300T20 PO
[2022-12-29 03:57] VITALS: BP 101/74; PULSE 95; RESP 18; TEMP 96; O2SAT 98
== END 2022-12-29 06:09 | disposition home or self-care (01) ==
LOC: ER 03:38
DX: J06.9 Acute upper respiratory infection, unspecified (principal); Z20.822 Contact with and (suspected) exposure to COVID-19; J45.909 Unspecified asthma, uncomplicated; F20.9 Schizophrenia, unspecified; F12.10 Cannabis abuse, uncomplicated; F15.10 Other stimulant abuse, uncomplicated; Z59.00 Homelessness unspecified; Z56.0 Unemployment, unspecified
CPT/HCPCS: 36415; 71045; 87502; 87503; 87811; 93005; 99285

== ENCOUNTER 2023-02-01 17:23 | Emergency (ER) | payer MEDICARE, MEDICAID ==
[~2023-02-01] VITALS: Ht 167.6 cm; Wt 60.5 kg
[2023-02-01 17:32] VITALS: BP 108/64; PULSE 109; RESP 18; TEMP 98.4; O2SAT 96
[2023-02-01 18:23] LABS: BASOPHILS % (AUTO) 0.3 % (0-1); EOSINOPHILS # (AUTO) 0.2 X10'3 (0-0.9); EOSINOPHILS % (AUTO) 2.6 % (0-6); HEMATOCRIT 41.3 % (42.0-52.0); HEMOGLOBIN 13.7 g/dl (14.0-17.9); LYMPHOCYTES # (AUTO) 1.5 X10'3 (1.1-4.8); MEAN CORPUSCULAR HEMOGLOBIN 28.2 PG (27.0-31.0); MEAN CORPUSCULAR VOLUME 85.3 FL (78-98); MEAN PLATELET VOLUME 8.3 FL (7.4-10.4); MONOCYTES % (AUTO) 11.6 % (2-12); NEUTROPHILS # (AUTO) 5.9 X10'3 (1.8-7.7); NEUTROPHILS % (AUTO) 68.5 % (42-75); PLATELET COUNT 300 X10'3 (140-440); RED BLOOD COUNT 4.85 X10'6 (4.70-6.10); WHITE BLOOD COUNT 8.7 X10'3 (4.5-11.0)
[2023-02-01 18:34] LABS: ALANINE AMINOTRANSFERASE 23 U/L (12-78); ALBUMIN 3.3 G/DL (3.4-5.0); ALBUMIN/GLOBULIN RATIO 0.8 (1.1-1.5); ALKALINE PHOSPHATASE 96 IU/L (46-116); ANION GAP 6 (8-16); ASPARTATE AMINO TRANSFERASE 22 U/L (10-37); BILIRUBIN,TOTAL 0.3 MG/DL (0.1-1.0); BLOOD UREA NITROGEN 16 MG/DL (7-18); CALCIUM 8.8 MG/DL (8.5-10.1); CHLORIDE 102 MMOL/L (99-107); GLUCOSE 99 MG/DL (70-104); POTASSIUM 4.1 MMOL/L (3.5-5.1); SODIUM 139 MMOL/L (135-145); TOTAL CARBON DIOXIDE 31.1 MMOL/L (24-32); TOTAL PROTEIN 7.2 G/DL (6.4-8.2); eCRCL 114 ML/MIN; eGFR > 90 ML/MIN
[2023-02-01 18:44] LABS: ETHANOL < 10 MG/DL (<10); THYROID STIMULATING HORMONE 0.43 ulU/ml (0.34-4.50)
== END 2023-02-01 23:37 | disposition left against medical advice (07) ==
LOC: ER 17:23
DX: R45.851 Suicidal ideations (principal); Z20.822 Contact with and (suspected) exposure to COVID-19; F31.9 Bipolar disorder, unspecified; F20.9 Schizophrenia, unspecified; F12.10 Cannabis abuse, uncomplicated; F15.10 Other stimulant abuse, uncomplicated; Z88.0 Allergy status to penicillin; Z88.1 Allergy status to other antibiotic agents; Z88.2 Allergy status to sulfonamides
CPT/HCPCS: 36415; 80053; 80320; 84443; 85025; 87811; 99285

== ENCOUNTER 2023-08-26 20:13 | Emergency (ER) | payer MEDICARE, MEDICAID ==
[~2023-08-26] VITALS: Ht 167.6 cm; Wt 59.1 kg
[2023-08-26 20:49] VITALS: BP 96/63; PULSE 92; RESP 14; TEMP 99; O2SAT 96
[2023-08-26] MEDS ORDERED: DOXY100C43 PO (22:41)
[2023-08-26] MEDS: DOXYCYCLINE 100MG CAPSULE PO STA (22:55)
== END 2023-08-26 23:00 ==
LOC: ER 20:14 → ADULT MH 08-27 18:30 → UNDOADMIN 08-27 18:30
DX: M79.642 Pain in left hand (principal); Z59.00 Homelessness unspecified; J45.909 Unspecified asthma, uncomplicated; F32.A Depression, unspecified; F12.90 Cannabis use, unspecified, uncomplicated; F15.90 Other stimulant use, unspecified, uncomplicated; Z88.0 Allergy status to penicillin; Z88.8 Allergy status to other drugs, medicaments and biological substances; Z56.0 Unemployment, unspecified
CPT/HCPCS: 73130; 99283

== ENCOUNTER 2023-08-28 14:48 | Inpatient (IN) | payer MEDICARE, MEDICAID ==
[~2023-08-28] VITALS: Ht 167.6 cm; Wt 56.1 kg
[~2023-08-28 14:48] MED LIST changes: +DOXY100C43 PO; -NICO-907 BC; -QUET100T34 PO; -TRAZ-251 PO; -VENL75CA61 PO
[2023-08-28] MEDS ORDERED: loperamide 2mg capsule PO PRN (15:15)
[2023-08-28] MEDS ORDERED: mag hydrox/Alum hydrox/simeth 30ml oral suspension PO PRN (15:15)
[2023-08-28] MEDS ORDERED: acetaminophen 325mg tablet PO PRN (15:15)
[2023-08-28] MEDS ORDERED: magnesium hydroxide 30ml (MOM) UD suspension PO PRN (15:15)
[2023-08-28] MEDS ORDERED: DOXY-460 PO (16:05)
[2023-08-28 16:34] VITALS: BP 107/79; PULSE 87; RESP 20; TEMP 98.2; O2SAT 100
[2023-08-28] MEDS: acetaminophen 325mg tablet PO PRN (17:56)
[2023-08-28 19:00] VITALS: RESP 16
[2023-08-28] MEDS: DOXYCYCLINE 100MG CAPSULE PO SCH (19:39)
[2023-08-28 20:00] VITALS: RESP 16
[2023-08-29 07:00] VITALS: RESP 16; O2SAT 95
[2023-08-29 07:10] LABS: CHOL/HDL RATIO 2.4 (0.00-4.99); CHOLESTEROL 145 MG/DL (0-200); HDL CHOLESTEROL 60 MG/DL (35-60); LDL CHOLESTEROL 76 MG/DL (50-100); TRIGLYCERIDES 34 MG/DL (20-135)
[2023-08-29 07:31] LABS: HEMOGLOBIN A1C 5.3 % (4.5-6.2)
[2023-08-29 08:00] VITALS: BP 91/68; PULSE 80; RESP 16; TEMP 98.3; O2SAT 95
[2023-08-29] MEDS: nicotine 21mg patch - 24 hr TD SCH (08:00)
[2023-08-29] MEDS: FLUoxetine 20mg capsule PO SCH (13:22)
[2023-08-29] MEDS: LORazepam 1 MG tablet PO ONE (13:47)
[2023-08-29] MEDS: OLANZapine 2.5MG tablet PO ONE (13:47)
[2023-08-29 19:00] VITALS: RESP 18; O2SAT 96
[2023-08-29 19:59] VITALS: BP 104/55; PULSE 82; RESP 18; TEMP 98.1; O2SAT 94
[2023-08-29] MEDS ORDERED: acetaminophen 325mg tablet PO SCH (20:00)
[2023-08-29] MEDS: ibuprofen tablet 400 MG TABLET PO SCH (20:24)
[2023-08-30 06:37] LABS: BASOPHILS # (AUTO) 0.1 X10'3 (0-0.2); BASOPHILS % (AUTO) 1.2 % (0-1); EOSINOPHILS # (AUTO) 0.3 X10'3 (0-0.9); EOSINOPHILS % (AUTO) 6.2 % (0-6); HEMATOCRIT 45.4 % (42.0-52.0); HEMOGLOBIN 15.1 g/dl (14.0-17.9); LYMPHOCYTES # (AUTO) 1.6 X10'3 (1.1-4.8); MEAN CORPUSCULAR HEMOGLOBIN 30.1 PG (27.0-31.0); MEAN CORPUSCULAR HGB CONC 33.2 g/dL (33.0-36.5); MEAN CORPUSCULAR VOLUME 90.7 FL (78-98); MEAN PLATELET VOLUME 8.4 FL (7.4-10.4); MONOCYTES # (AUTO) 0.4 X10'3 (0-0.9); MONOCYTES % (AUTO) 7.7 % (2-12); NEUTROPHILS # (AUTO) 2.3 X10'3 (1.8-7.7); NEUTROPHILS % (AUTO) 50.9 % (42-75); PLATELET COUNT 286 X10'3 (140-440); RED BLOOD COUNT 5.01 X10'6 (4.70-6.10); RED CELL DISTRIBUTION WIDTH 14.5 % (11.5-14.5); WHITE BLOOD COUNT 4.6 X10'3 (4.5-11.0)
[2023-08-30 06:49] LABS: ALANINE AMINOTRANSFERASE 31 U/L (12-78); ALBUMIN 3.7 G/DL (3.4-5.0); ALBUMIN/GLOBULIN RATIO 1.1 (1.1-1.5); ALKALINE PHOSPHATASE 70 IU/L (46-116); ANION GAP 5 (8-16); ASPARTATE AMINO TRANSFERASE 19 U/L (10-37); BILIRUBIN,TOTAL 0.4 MG/DL (0.1-1.0); BLOOD UREA NITROGEN 29 MG/DL (7-18); BUN/CREATININE RATIO 37.7 (10.0-20.0); CALCIUM 9.2 MG/DL (8.5-10.1); CHLORIDE 104 MMOL/L (99-107); CREATININE 0.77 MG/DL (0.60-1.10); GLUCOSE 96 MG/DL (70-104); POTASSIUM 4.5 MMOL/L (3.5-5.1); SODIUM 137 MMOL/L (135-145); TOTAL CARBON DIOXIDE 27.9 MMOL/L (24-32); TOTAL PROTEIN 7.1 G/DL (6.4-8.2); eCRCL 109 ML/MIN; eGFR > 90 ML/MIN
[2023-08-30 07:12] VITALS: BP 116/70; PULSE 57; RESP 16; TEMP 97.9; O2SAT 99
[2023-08-30 19:00] VITALS: RESP 18; O2SAT 96
[2023-08-30 19:27] VITALS: BP 119/66; PULSE 76; RESP 18; TEMP 97.3; O2SAT 96
[2023-08-30] MEDS: olanzapine 10mg tablet PO SCH (21:00)
[2023-08-31 07:26] VITALS: BP 123/84; PULSE 64; RESP 16; TEMP 97.6; O2SAT 98
[2023-08-31] MEDS: acetaminophen 325mg tablet PO PRN (10:25)
[2023-08-31] MEDS: LORazepam 1 MG tablet PO ONE (11:37)
[2023-08-31 19:39] VITALS: BP 123/69; PULSE 76; RESP 16; TEMP 98.4; O2SAT 100
[2023-08-31] MEDS: mineral oil/petrolatum, white cream 113gm jar TP SCH (20:00)
[2023-08-31] MEDS: miconazole nitrate 28.35 gm derm cream TP SCH (20:00)
[2023-08-31] MEDS: NICOTINE POLACRILEX 2 MG LOZENGE BC PRN (21:55)
[2023-09-01 07:00] VITALS: RESP 17; O2SAT 97
[2023-09-01 07:30] VITALS: BP 118/64; PULSE 68; RESP 17; TEMP 97.9; O2SAT 97
[2023-09-01] MEDS: hydrOXYzine 25 MG tablet PO PRN (12:42)
[2023-09-01 19:00] VITALS: BP 118/65; PULSE 88; RESP 16; TEMP 98; O2SAT 97
[2023-09-01 20:00] VITALS: BP 118/65; PULSE 88; RESP 16; TEMP 98; O2SAT 97
[2023-09-02 07:00] VITALS: RESP 16; O2SAT 98
[2023-09-02 08:00] VITALS: BP 105/57; PULSE 55; RESP 16; TEMP 97.8; O2SAT 98
[2023-09-02 19:00] VITALS: BP 99/62; PULSE 63; RESP 18; TEMP 97.4; O2SAT 97
[2023-09-02] MEDS: diphenhydrAMINE 50 mg/ml inj ONE (19:27)
[2023-09-02] MEDS: haloperidol lactate 5mg/ml inj ONE (19:27)
[2023-09-02] MEDS: LORazepam 2 mg/ml vial ONE (19:28)
[2023-09-03 07:30] VITALS: BP 122/70; PULSE 58; RESP 12; TEMP 97.2; O2SAT 97
[2023-09-03] MEDS ORDERED: NICO-907 BC (11:29)
[2023-09-03] MEDS ORDERED: FLUO-167 PO (11:29)
== END 2023-09-03 13:05 | disposition home or self-care (01) | DRG 885 ==
LOC: ADULT MH 14:48
PROVIDERS: ADMIT Student in an Organized Health Care Education/Training Program; ATTEND Student in an Organized Health Care Education/Training Program
PROC: GZHZZZZ Group Psychotherapy (ICD-10-PCS; principal; 2023-08-29)
PROC: GZ51ZZZ Individual Psychotherapy, Behavioral (ICD-10-PCS; 2023-08-29)
DX: F33.2 Major depressive disorder, recurrent severe without psychotic features (principal); R45.851 Suicidal ideations; Z59.00 Homelessness unspecified; F41.9 Anxiety disorder, unspecified; G89.29 Other chronic pain; F15.10 Other stimulant abuse, uncomplicated; Z56.0 Unemployment, unspecified; Z81.8 Family history of other mental and behavioral disorders; Z88.0 Allergy status to penicillin; Z88.2 Allergy status to sulfonamides; Z88.8 Allergy status to other drugs, medicaments and biological substances
CPT/HCPCS: 36415; 73130; 80053; 80061; 83036; 84145; 85025; 85651; 87081; J1200; J1630; J2060; Q0177

== ENCOUNTER 2023-09-15 21:43 | Emergency (ER) | payer MEDICARE, MEDICAID ==
[~2023-09-15] VITALS: Ht 167.6 cm; Wt 61.4 kg
[~2023-09-15 21:43] MED LIST changes: -DOXY100C43 PO; +FLUO-167 PO; +NICO-907 BC
[2023-09-15 21:58] VITALS: TEMP 98.4
[2023-09-15] MEDS ORDERED: iohexol 300mg/ml 100ml inj. ONE (23:04)
[2023-09-15] MEDS: acetaminophen 325mg tablet PO ONE (23:46)
[2023-09-15] MEDS: ibuprofen tablet 400 MG TABLET PO ONE (23:47)
[2023-09-16 00:34] VITALS: BP 118/78; PULSE 83; RESP 15; O2SAT 98
== END 2023-09-16 00:30 | disposition home or self-care (01) ==
LOC: ER 21:43
DX: S62.603A Fracture of unspecified phalanx of left middle finger, initial encounter for closed fracture (principal); J45.909 Unspecified asthma, uncomplicated; F32.A Depression, unspecified; F12.90 Cannabis use, unspecified, uncomplicated; F15.90 Other stimulant use, unspecified, uncomplicated; Z59.00 Homelessness unspecified; Z98.890 Other specified postprocedural states; Z56.0 Unemployment, unspecified; Z88.0 Allergy status to penicillin; Z88.2 Allergy status to sulfonamides; Z88.8 Allergy status to other drugs, medicaments and biological substances; Z79.899 Other long term (current) drug therapy; X58.XXXA Exposure to other specified factors, initial encounter; Y93.89 Activity, other specified; Y92.89 Other specified places as the place of occurrence of the external cause; Y99.8 Other external cause status
CPT/HCPCS: 73201; 99285; Q9967

== ENCOUNTER 2023-09-23 21:32 | Emergency (ER) | payer MEDICARE, MEDICAID ==
[~2023-09-23] VITALS: Ht 167.6 cm; Wt 62.3 kg
[2023-09-24 00:07] LABS: BASOPHILS # (AUTO) 0.1 X10'3 (0-0.2); BASOPHILS % (AUTO) 0.8 % (0-1); EOSINOPHILS # (AUTO) 0.1 X10'3 (0-0.9); EOSINOPHILS % (AUTO) 1.9 % (0-6); HEMATOCRIT 39.8 % (42.0-52.0); HEMOGLOBIN 13.3 g/dl (14.0-17.9); LYMPHOCYTES # (AUTO) 1.4 X10'3 (1.1-4.8); LYMPHOCYTES % (AUTO) 22.5 % (21-51); MEAN CORPUSCULAR HEMOGLOBIN 29.9 PG (27.0-31.0); MEAN CORPUSCULAR HGB CONC 33.3 g/dL (33.0-36.5); MEAN CORPUSCULAR VOLUME 89.9 FL (78-98); MEAN PLATELET VOLUME 8.4 FL (7.4-10.4); MONOCYTES # (AUTO) 0.6 X10'3 (0-0.9); MONOCYTES % (AUTO) 8.8 % (2-12); NEUTROPHILS # (AUTO) 4.2 X10'3 (1.8-7.7); PLATELET COUNT 244 X10'3 (140-440); RED BLOOD COUNT 4.42 X10'6 (4.70-6.10); RED CELL DISTRIBUTION WIDTH 14.3 % (11.5-14.5); WHITE BLOOD COUNT 6.4 X10'3 (4.5-11.0)
[2023-09-24 00:17] LABS: ANION GAP 9 (8-16); BLOOD UREA NITROGEN 24 MG/DL (7-18); BUN/CREATININE RATIO 29.6 (10.0-20.0); CHLORIDE 104 MMOL/L (99-107); CREATININE 0.81 MG/DL (0.60-1.10); GLUCOSE 91 MG/DL (70-104); MAGNESIUM 2.1 MG/DL (1.5-2.4); POTASSIUM 3.3 MMOL/L (3.5-5.1); SODIUM 139 MMOL/L (135-145); TOTAL CARBON DIOXIDE 25.7 MMOL/L (24-32); eCRCL 115 ML/MIN; eGFR > 90 ML/MIN
[2023-09-24] MEDS: potassium Cl 20 mEq SR tablet PO STA (02:00)
[2023-09-24 02:08] VITALS: TEMP 98.9
[2023-09-24 03:04] VITALS: BP 101/58; PULSE 64; RESP 14; O2SAT 98
== END 2023-09-24 03:09 | disposition home or self-care (01) ==
LOC: ER 21:33
DX: R56.9 Unspecified convulsions (principal); J45.909 Unspecified asthma, uncomplicated; F20.9 Schizophrenia, unspecified; F12.90 Cannabis use, unspecified, uncomplicated; F15.10 Other stimulant abuse, uncomplicated; Z88.0 Allergy status to penicillin; Z88.2 Allergy status to sulfonamides; Z88.5 Allergy status to narcotic agent; Z88.8 Allergy status to other drugs, medicaments and biological substances; Z79.899 Other long term (current) drug therapy
CPT/HCPCS: 36415; 51702; 70450; 80048; 83735; 84484; 85025; 99284; 99285

== ENCOUNTER 2024-02-28 21:54 | Emergency (ER) | payer MEDICARE, MEDICAID ==
[~2024-02-28] VITALS: Ht 167.6 cm; Wt 62.3 kg
[~2024-02-28 21:54] MED LIST changes: +BENZ1TAB78 PO; -NICO-907 BC; +OLAN10TA73 PO; +PRAZ2CAP2 PO; +TRAZ-251 PO
[2024-02-28 22:04] VITALS: BP 148/92; PULSE 91; RESP 18; TEMP 98.7; O2SAT 98
[2024-02-28 23:49] LABS: BASOPHILS # (AUTO) 0.1 X10'3 (0-0.2); BASOPHILS % (AUTO) 0.7 % (0-1); EOSINOPHILS # (AUTO) 0.2 X10'3 (0-0.9); EOSINOPHILS % (AUTO) 2.5 % (0-6); HEMATOCRIT 42.5 % (42.0-52.0); HEMOGLOBIN 14.4 g/dl (14.0-17.9); LYMPHOCYTES # (AUTO) 2.6 X10'3 (1.1-4.8); MEAN CORPUSCULAR HGB CONC 33.9 g/dL (33.0-36.5); MEAN CORPUSCULAR VOLUME 88.4 FL (78-98); MEAN PLATELET VOLUME 8.1 FL (7.4-10.4); MONOCYTES # (AUTO) 0.7 X10'3 (0-0.9); MONOCYTES % (AUTO) 8.8 % (2-12); NEUTROPHILS # (AUTO) 4.7 X10'3 (1.8-7.7); PLATELET COUNT 304 X10'3 (140-440); RED BLOOD COUNT 4.81 X10'6 (4.70-6.10); RED CELL DISTRIBUTION WIDTH 14.8 % (11.5-14.5); WHITE BLOOD COUNT 8.3 X10'3 (4.5-11.0)
[2024-02-29] MEDS ORDERED: ibuprofen tablet 400 MG TABLET PO ONE (00:50)
[2024-02-29] MEDS: ibuprofen 200mg tablet PO ONE (01:02)
== END 2024-02-29 01:02 | disposition home or self-care (01) ==
LOC: ER 21:54
DX: M12.842 Other specific arthropathies, not elsewhere classified, left hand (principal); S69.82XA Other specified injuries of left wrist, hand and finger(s), initial encounter; J45.909 Unspecified asthma, uncomplicated; F20.9 Schizophrenia, unspecified; F32.A Depression, unspecified; F12.90 Cannabis use, unspecified, uncomplicated; F15.90 Other stimulant use, unspecified, uncomplicated; Z59.00 Homelessness unspecified; Z56.0 Unemployment, unspecified; Z88.0 Allergy status to penicillin; Z88.2 Allergy status to sulfonamides; Z79.899 Other long term (current) drug therapy; Z98.890 Other specified postprocedural states; W18.39XA Other fall on same level, initial encounter; Y93.89 Activity, other specified; Y92.89 Other specified places as the place of occurrence of the external cause; Y99.8 Other external cause status
CPT/HCPCS: 29130; 36415; 73140; 84145; 85025; 85651; 86140; 99284

== ENCOUNTER 2024-03-02 20:12 | Emergency (ER) | payer MEDICARE, MEDICAID ==
[~2024-03-02] VITALS: Ht 167.6 cm; Wt 62.0 kg
[2024-03-02 20:48] LABS: BASOPHILS % (AUTO) 0.7 % (0-1); EOSINOPHILS # (AUTO) 0.4 X10'3 (0-0.9); EOSINOPHILS % (AUTO) 6.8 % (0-6); HEMATOCRIT 39.7 % (42.0-52.0); HEMOGLOBIN 13.6 g/dl (14.0-17.9); LYMPHOCYTES % (AUTO) 38.9 % (21-51); MEAN CORPUSCULAR HEMOGLOBIN 29.9 PG (27.0-31.0); MEAN CORPUSCULAR HGB CONC 34.2 g/dL (33.0-36.5); MEAN CORPUSCULAR VOLUME 87.5 FL (78-98); MONOCYTES # (AUTO) 0.4 X10'3 (0-0.9); MONOCYTES % (AUTO) 7.3 % (2-12); NEUTROPHILS # (AUTO) 2.4 X10'3 (1.8-7.7); NEUTROPHILS % (AUTO) 46.3 % (42-75); PLATELET COUNT 263 X10'3 (140-440); RED BLOOD COUNT 4.54 X10'6 (4.70-6.10); RED CELL DISTRIBUTION WIDTH 14.4 % (11.5-14.5); WHITE BLOOD COUNT 5.2 X10'3 (4.5-11.0)
[2024-03-02 21:12] LABS: ALANINE AMINOTRANSFERASE 33 U/L (12-78); ALBUMIN 3.7 G/DL (3.4-5.0); ALBUMIN/GLOBULIN RATIO 1.3 (1.1-1.5); ALKALINE PHOSPHATASE 93 IU/L (46-116); ANION GAP 6 (8-16); ASPARTATE AMINO TRANSFERASE 24 U/L (10-37); BILIRUBIN,TOTAL 0.5 MG/DL (0.1-1.0); BLOOD UREA NITROGEN 22 MG/DL (7-18); BUN/CREATININE RATIO 28.9 (10.0-20.0); CALCIUM 8.7 MG/DL (8.5-10.1); CHLORIDE 105 MMOL/L (99-107); CREATININE 0.76 MG/DL (0.60-1.10); ETHANOL < 10 MG/DL (<10); GLUCOSE 198 MG/DL (70-104); POTASSIUM 3.5 MMOL/L (3.5-5.1); SODIUM 140 MMOL/L (135-145); THYROID STIMULATING HORMONE 0.72 ulU/ml (0.34-4.50); TOTAL CARBON DIOXIDE 29.1 MMOL/L (24-32); TOTAL PROTEIN 6.5 G/DL (6.4-8.2); eCRCL 122 ML/MIN; eGFR > 90 ML/MIN
[2024-03-02] MEDS ORDERED: OLAN10TA73 PO (22:11)
[2024-03-02] MEDS ORDERED: BENZ1TAB97 PO (22:11)
[2024-03-02] MEDS ORDERED: FLUO-167 PO (22:11)
[2024-03-02] MEDS ORDERED: TRAZ-251 PO (22:11)
[2024-03-02] MEDS ORDERED: PRAZ2CAP2 PO (22:11)
[2024-03-02] MEDS ORDERED: benztropine 1mg tablet PO PRN (22:50)
[2024-03-03 05:04] LABS: BILIRUBIN,URINE NEGATIVE (Neg); CLARITY,URINE CLEAR (Clear); COLOR,URINE YELLOW (Yellow); GLUCOSE, URINE NEGATIVE (Neg); KETONES,URINE NEGATIVE (Neg); LEUKOCYTE ESTERASE ,URINE NEGATIVE (Neg); NITRITES, URINE NEGATIVE (Neg); OCCULT BLOOD,URINE NEGATIVE (Neg); PROTEIN,URINE NEGATIVE (Neg); UROBILINOGEN,URINE 0.2 E.U/dL (0.2-1.0)
[2024-03-03 05:05] LABS: UA COLLECTION TYPE VOIDED
[2024-03-03 05:46] VITALS: BP 96/55; PULSE 71; RESP 16; TEMP 98.2; O2SAT 98
[2024-03-03 06:13] LABS: URINE AMPHETAMINE SCREEN POSITIVE (Neg); URINE BARBITUATE SCREEN NEGATIVE (Neg); URINE BENZODIAZEPINES SCREEN NEGATIVE (Neg); URINE CANNABINOID SCREEN POSITIVE (Neg); URINE COCAINE SCREEN NEGATIVE (Neg); URINE METHADONE SCREEN NEGATIVE (Neg); URINE OPIATE SCREEN NEGATIVE (Neg); URINE PHENCYCLIDINE SCREEN NEGATIVE (Neg)
[2024-03-03] MEDS: FLUoxetine 20mg capsule PO SCH (08:07)
[2024-03-03] MEDS ORDERED: traZODone 150mg tablet PO SCH (21:00)
[2024-03-03] MEDS ORDERED: prazosin 1mg capsule PO SCH (21:00)
[2024-03-03] MEDS ORDERED: olanzapine 10mg tablet PO SCH (21:00)
== END 2024-03-03 16:15 ==
LOC: ER 20:12
DX: R45.850 Homicidal ideations (principal); J45.909 Unspecified asthma, uncomplicated; F20.9 Schizophrenia, unspecified; F31.9 Bipolar disorder, unspecified; F12.90 Cannabis use, unspecified, uncomplicated; F15.90 Other stimulant use, unspecified, uncomplicated; Z20.822 Contact with and (suspected) exposure to COVID-19; Z88.0 Allergy status to penicillin; Z88.2 Allergy status to sulfonamides; Z88.1 Allergy status to other antibiotic agents; Z98.890 Other specified postprocedural states
CPT/HCPCS: 36415; 80053; 80305; 81003; 84443; 85025; 87811; 99285; G0480; 80320; 99284

== ENCOUNTER 2024-03-25 16:46 | Emergency (ER) | payer MEDICARE, MEDICAID ==
[~2024-03-25] VITALS: Ht 167.6 cm; Wt 54.5 kg
[~2024-03-25 16:46] MED LIST changes: -BENZ1TAB78 PO; +BENZ1TAB97 PO
[2024-03-25 17:15] VITALS: BP 138/106; PULSE 118; RESP 16; O2SAT 99
[2024-03-25] MEDS ORDERED: CEPH-585 PO (18:11)
[2024-03-25] MEDS ORDERED: IBUP-862 PO (18:11)
[2024-03-25] MEDS: ibuprofen 200mg tablet PO ONE (18:24)
[2024-03-25] MEDS: TETanus/Pertussis (Acell)/Diphther VAC/PF (Tdap-Adult) 0.5ml syringe IMVAC ONE (18:24)
[2024-03-25] MEDS: CefTRIAXone 1000mg IM Kit (w/lidocaine diluent) IM ONE (18:25)
[2024-03-25 18:59] VITALS: TEMP 97.4
== END 2024-03-25 19:04 | disposition home or self-care (01) ==
LOC: ER 16:46
DX: S93.401A Sprain of unspecified ligament of right ankle, initial encounter (principal); S96.911A Strain of unspecified muscle and tendon at ankle and foot level, right foot, initial encounter; L03.115 Cellulitis of right lower limb; J45.909 Unspecified asthma, uncomplicated; F20.9 Schizophrenia, unspecified; F12.90 Cannabis use, unspecified, uncomplicated; F15.90 Other stimulant use, unspecified, uncomplicated; Z88.0 Allergy status to penicillin; Z88.2 Allergy status to sulfonamides; Z59.00 Homelessness unspecified; X50.9XXA Other and unspecified overexertion or strenuous movements or postures, initial encounter; Y93.89 Activity, other specified; Y92.89 Other specified places as the place of occurrence of the external cause; Y99.8 Other external cause status
CPT/HCPCS: 73630; 90715; 96372; 99284; G0008; J0696; 90471

== ENCOUNTER 2024-09-30 07:38 | Emergency (ER) | payer MEDICARE, MEDICAID ==
[~2024-09-30] VITALS: Ht 167.6 cm; Wt 46.2 kg
[~2024-09-30 07:38] MED LIST changes: -BENZ1TAB97 PO; -FLUO-167 PO; -TRAZ-251 PO; +gabapentin capsule PO
[2024-09-30 07:44] VITALS: BP 107/74; PULSE 111; RESP 16; TEMP 97; O2SAT 97
[2024-09-30] MEDS ORDERED: FLUO20CA41 PO (10:27)
[2024-09-30] MEDS ORDERED: TRAZ-256 PO (10:27)
[2024-09-30] MEDS ORDERED: PRAZ1CAP5 PO (10:27)
[2024-09-30] MEDS ORDERED: BENZ1TAB97 PO (10:29)
[2024-09-30] MEDS ORDERED: OLAN-38 PO (10:29)
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
== END 2024-09-30 10:50 | disposition home or self-care (01) ==
LOC: ER 07:39
DX: Z76.0 Encounter for issue of repeat prescription (principal); J45.909 Unspecified asthma, uncomplicated; F20.9 Schizophrenia, unspecified; Z88.0 Allergy status to penicillin; Z88.1 Allergy status to other antibiotic agents; Z88.2 Allergy status to sulfonamides; Z88.8 Allergy status to other drugs, medicaments and biological substances
CPT/HCPCS: 99281

== ENCOUNTER 2024-10-02 21:28 | Emergency (ER) | payer MEDICARE, MEDICAID ==
[~2024-10-02] VITALS: Ht 167.6 cm; Wt 57.0 kg
[~2024-10-02 21:28] MED LIST changes: +FLUO20CA41 PO; +OLAN-38 PO; +PRAZ1CAP5 PO; +TRAZ-256 PO
[2024-10-02 21:41] VITALS: TEMP 98.3
--- NOTE | 2024-10-02 22:05 | Physician Documentation ---
History of Present Illness ~ Chief Complaint: Mental Health Eval Stated Complaint: MH Time Seen by MD: 21:51 Primary Medical Doctor: JEFFERSON HPI 34-year-old male who presents requesting to be placed on a 5150 Per chart review, the patient has a history of schizoaffective bipolar type. He has had multiple ER visits and hospitalizations in the past including a recent admission for suicidal ideation. He presents today, and tells me I want to be put on a 5150 so I can talk to the mental health specialist. When asked him why he tells me because I want to hurt the homeless. He tells me that he got into to fights recently because he is very angry. He tells me I have been angry my entire life. He tells me he has not been on medications recently. He has been on Zyprexa and Cogentin and other antidepressants in the past. He denies any acute medical concerns. No suicidal ideation or plan. When asked him how I can help him today he repeatedly just tells me that he wants to be put on a 5150 and talk to the mental health specialist. Medication Reconciliation Allergies: Coded Allergies: Penicillins (Verified Allergy, Unknown, 10/02/24) clindamycin (Verified Allergy, Unknown, 09/30/24) nickel (Verified Allergy, Unknown, 02/28/24) sulfamethoxazole (Unverified Allergy, Unknown, 02/28/24) trimethoprim (Unverified Allergy, Unknown, 02/28/24) Scheduled Fluoxetine Hcl* (Prozac*), 1 CAP PO DAILY Olanzapine (Olanzapine), 1 TAB PO HS Olanzapine (Olanzapine), 1 TAB PO HS Prazosin Hcl (Prazosin Hcl), 1 CAPSULE PO HS Prazosin Hcl (Prazosin Hcl), 1 CAP PO HS Trazodone HCl (Trazodone HCl), 1 TAB PO HS [gabapentin capsule], 300 MG PO TID Discontinued Medications Gabapentin (Gabapentin), 3 CAP PO TID, (Reported) Past Medical History Past Medical History: Seizures, Asthma, Bipolar, Depression, Schizophrenia Past Surgical History: orthopedic surgeries Patient History: FH: schizophrenia MOTHER Alcohol Use: None Drug Use: marijuana, methamphetamine Lives with: Family Lives In: Homeless Occupation: unemployed Review of Systems All Other Systems at this time: Reviewed and Negative Physical Exam Vital Signs: Temperature: 98.3, Source: Temporal, Heart Rate: 100, Respiratory Rate: 16, BP: 110/57, Pulse Oximetry: 97, Weight: 56.950 Oxygen Flow Rate: 0 Physical Exam General: This is a thin young male sitting in bed, with an intense gaze HEENT: Atraumatic, oropharynx is moist Heart: Mild tachycardic, appears regular Lungs: normal work of breathing, normal oxygen saturation on room air Neuro: Alert and oriented to self and location Psychiatric: The patient has an intense expression and speaks in a monotone voice. He denies suicidal ideation or plan. Tells me I might hurt the homeless. Progress Results/Orders Results/Orders Completed Orders - MANNIE BHARDWAJ MD Olanzapine Disint. Tablet (Zyprexa Zydis (10/02/24 22:15) Benztropine 1mg Tablet (Cogentin 1mg Tab (10/02/24 22:15) Medications Received in ER Medications (Trade) Dose Ordered Sig/Alysha Route PRN Reason Start Time Stop Time Status Last Admin Dose Admin (ZyPREXA zydis tablet) 5 mg ONCE ONCE PO 10/02/24 22:15 10/02/24 22:16 DC 10/02/24 22:32 5 MG (Cogentin 1mg tablet) 1 mg ONCE ONCE PO 10/02/24 22:15 10/02/24 22:16 DC 10/02/24 22:32 1 MG Vital Signs 10/02/24 10/02/24 10/02/24 21:41 22:00 23:30 Temp 98.3 Pulse 100 90 Resp 16 14 18 B/P (MAP) 110/57 138/80 (99) Pulse Ox 97 99 O2 Flow Rate 0 Medical Decision Making Additional info obtained from: old records Findings I reviewed his previous ER visits and recent admission for suicidal ideation Differential Dx:Considerations: Include: Alcohol abuse, Anxiety, Bipolar disorder, Depression, Schizophrenia, Substance abuse Assessment The patient presents, saying that he has anger issues. He denies suicide ideation or plan. He repeatedly requests to be placed on a hold and to be put in the hospital. He has no acute medical complaints. On chart review he has been seen here recently multiple times. Overall, he does not appear currently to be danger to himself or others. He was given a dose of Zyprexa to help with his symptoms that he has he has not been taking his home medications. I suspect some component of secondary gain because he is homeless. On re-evaluation, he is sleeping comfortably. When I woke him up he denied any complaints, but then became angry and said he did not want to be discharged. Again he made no specific threats of self-harm or harming others. He will be discharged with outpatient follow up. Departure Time of Disposition: 00:32 Disposition: 01 HOME / SELF CARE / HOMELESS Impression: Primary Impression: Schizoaffective disorder, bipolar type Condition: Stable Discharge Instructions: Medical Screening Exam Referrals: NO PRIMARY CARE PROVIDER (PCP) Education Educated: Patient Educated regarding: need for follow up Signature Scribe Signature: na Attestation: MNANIE Mcdermott MD Oct 02, 2024 22:05
[2024-10-02] MEDS: benztropine 1mg tablet PO ONE (22:32)
[2024-10-02] MEDS: OLANZapine 5mg rapidly disint. tablet PO ONE (22:32)
[2024-10-02 23:30] VITALS: BP 138/80; PULSE 90; RESP 18; O2SAT 99
== END 2024-10-03 01:04 | disposition home or self-care (01) ==
LOC: ER 21:29
DX: F25.0 Schizoaffective disorder, bipolar type (principal); F12.90 Cannabis use, unspecified, uncomplicated; F15.90 Other stimulant use, unspecified, uncomplicated; J45.909 Unspecified asthma, uncomplicated; Z88.0 Allergy status to penicillin; Z88.1 Allergy status to other antibiotic agents; Z88.2 Allergy status to sulfonamides; Z88.8 Allergy status to other drugs, medicaments and biological substances
CPT/HCPCS: 99283

== ENCOUNTER 2024-10-07 03:58 | Emergency (ER) | payer MEDICARE, MEDICAID ==
[~2024-10-07] VITALS: Ht 167.6 cm; Wt 57.3 kg
[2024-10-07 04:01] VITALS: BP 106/74; PULSE 98; RESP 18; TEMP 97.7; O2SAT 99
--- NOTE | 2024-10-07 05:41 | ELECTROCARDIOGRAPH REPORT ---
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
== END 2024-10-07 06:02 | disposition left against medical advice (07) ==
LOC: ER 03:58
DX: R06.02 Shortness of breath (principal); Z53.21 Procedure and treatment not carried out due to patient leaving prior to being seen by health care provider
CPT/HCPCS: 93005